=== PATIENT | male | born 1980 | race Two or more races ===

== ENCOUNTER 2022-09-18 11:04 | Emergency (ER) | payer MEDICAID, SELFPAY ==
[2022-09-18 11:30] VITALS: BP 177/91; PULSE 98; RESP 20; TEMP 37.1; O2SAT 99; BMI 38.3
[2022-09-18 12:00] LABS: Basophils Absolute Auto 0.1 10^3/uL (0.0-0.1); Basophils Percent Auto 0.7 % (0.2-2.0); Eosinophils Absolute Auto 0.2 10^3/uL (0.0-0.7); Eosinophils Percent Auto 2.5 % (0.9-7.0); Hematocrit 39.7 % (42.0-54.0); Hemoglobin 13.8 g/dL (14.0-18.0); Immature Granulocytes Abs Auto 0.04 10^3/uL (0.00-0.03); Immature Granulocytes Pct Auto 0.5 % (0.0-0.5); Lymphocytes Absolute Auto 2.9 10^3/uL (1.2-3.8); Lymphocytes Percent Auto 35.4 % (20.5-60.0); Mean Corpuscular HGB Conc 34.8 g/dL (29.9-35.2); Mean Corpuscular Hemoglobin 33.7 pg (25.9-34.0); Mean Corpuscular Volume 97.1 fL (80.0-94.0); Mean Platelet Volume 10.7 fL (9.5-13.5); Monocytes Absolute Auto 0.6 10^3/uL (0.3-0.8); Monocytes Percent Auto 7.2 % (1.7-12.0); Neutrophils Absolute Auto 4.4 10^3/uL (1.4-6.5); Neutrophils Percent Auto 53.7 % (43.0-75.0); Platelet Count 237 10^3/uL (150-450); Red Blood Count 4.09 10^6/uL (4.70-6.10); Red Cell Distribution Width 12.6 % (11.0-15.0); White Blood Count 8.3 10^3/uL (4.0-11.0)
[2022-09-18] MEDS: ONDANSETRON PF 4 MG/2 ML VIAL IV (12:02)
[2022-09-18] MEDS: 0.9 % SODIUM CHLORIDE 1,000 ML 100 ML IV (12:03)
[2022-09-18 12:15] LABS: Alanine Aminotransferase 55 U/L (16-63); Albumin Globulin Ratio 0.7; Albumin Level 3.4 g/dL (3.4-5.0); Alkaline Phosphatase 75 U/L (46-116); Anion Gap 18.9; Aspartate Amino Transferase 21 U/L (15-37); BUN Creatinine Ratio 11.2; Bilirubin Total 0.4 mg/dL (0.2-1.0); Carbon Dioxide 19.7 mmol/L (21.0-32.0); Chloride 100 mmol/L (98-107); Estimated GFR (African America >60 (>=60); Estimated GFR (Non-African Ame >60 (>=60); Globulin 4.6 g/dL; Glucose 210 mg/dL (74-106); Potassium 3.6 mmol/L (3.5-5.1); Sodium 135 mmol/L (136-145)
[2022-09-18 12:22] LABS: Lactate/Lactic Acid 1.4 mmol/L (0.4-2.0)
--- NOTE | 2022-09-18 13:43 | ED_ITS ---
HPI - General Adult General Chief complaint: Nausea/Vomiting/Diarrhea Stated complaint: VOMITING Time Seen by Provider: 09/18/22 13:43 Source: patient Mode of arrival: walk-in Limitations: no limitations History of Present Illness HPI narrative: Patient presents to emergency department complaining of nausea, vomiting, and diarrhea since yesterday. Patient states he vomited 6 times yesterday. He states he ate some tacos and the meat could have been bad. Patient denies any abdominal pain. He denies any fever, chills, cough, chest pain, shortness of breath. He denies any flank pain, hematuria, dysuria. Denies any hematemesis, melena, hematochezia. He denies any trauma. Related Data Home Medications Medication Instructions Recorded Confirmed amlodipine 5 mg tablet 5 mg PO DAILY 09/18/22 09/18/22 glimepiride 2 mg tablet 2 mg PO BID 09/18/22 09/18/22 lisinopril 20 mg tablet 40 mg PO DAILY 09/18/22 09/18/22 metformin 1,000 mg tablet 1,000 mg PO BID 09/18/22 09/18/22 pravastatin 20 mg tablet 20 mg PO DAILY 09/18/22 09/18/22 Previous Rx's Medication Instructions Recorded ondansetron 4 mg disintegrating 4 mg PO DAILY PRN nausea and 09/18/22 tablet vomiting 24 hours #10 tabs Allergies Allergy/AdvReac Type Severity Reaction Status Date / Time No Known Drug Allergies Allergy Verified 09/18/22 11:27 Review of Systems ROS Narrative ROS: Unless otherwise stated in this report the patient's positive and negative responses for review of systems for constitutional, eyes, ENT, cardiovascular, respiratory, gastrointestinal, neurological, , musculoskeletal and integument systems and related systems to the presenting problem are either stated in the history of present illness or were not pertinent or were negative for the symptoms and/or complaints related to the presenting medical problem. PFSH PFS Social History Smoking status: Never smoker Exam Narrative Exam Narrative: Nurses notes and vital signs reviewed and patient is not hypoxic. General: Nontoxic, Well-appearing and in no apparent distress. Skin: Warm, dry, no pallor noted. No Rash Head: Normocephalic, atraumatic. Neck: Supple, non-tender. Eye: Pupils are equal, round and EOMI. No scleral icterus. Ears, Nose, Mouth, and Throat: TM clear, no posterior oropharynx erythema or nasal mucosal hypertrophy, uvula is mid-line Oral mucosa is moist Cardiovascular: Regular Rate and Rhythm without murmur, gallop or rub. Respiratory: No accessory muscle use or respiratory distress. Lungs are clear to auscultation, no wheezing, rales or rhonchi Chest Wall: no tenderness Back: No midline thoracic or lumbar vertebral tenderness. No CVA tenderness Musculoskeletal: normal ROM, no calf or popliteal tenderness, no lower extremity edema/swelling GI: Abdomen is soft, non-distended. Normal bowel sounds. No masses appreciated. No tenderness to palpation. No rebound, guarding, or rigidity noted. Neurological: A&O x4. No cranial nerve dysfunction observed. No truncal ataxia. Moves all extremities. Sensation intact. Psychiatric: Cooperative and interactive. Normal mood and affect. Constitutional Vital Signs - 24 hr 09/18/22 11:30 Temperature 98.8 F Pulse Rate [Monitor] 98 H Respiratory Rate 20 Blood Pressure [Left Arm] 177/91 H Pulse Oximetry 99 Oxygen Delivery Method Room Air Course Course Hospital Course: Patient had an IV established was given Zofran. She was feeling better, tolerating by mouth. All results were discussed with patient. Patient is abdomen is benign and nonsurgical. He is nontoxic. He will be given a prescription for Zofran. At this time the patient is without objective evidence of an acute process requiring hospitalization or inpatient management. The patient has remained hemodynamically stable. No additional indication for emergent studies at this ti me. I answered all questions. Discussed discharge instructions including standard anticipatory guidance and what should prompt a return to the emergency department, including if they get worse are not getting better or develops any new or concerning symptoms. I've given them specific time frame in which to follow-up, and who to follow-up with. The patient demonstrates understanding. Patient is nontoxic and stable for discharge with outpatient follow-up. This note was created with the assistance of a speech recognition program. Although the intention is to generate documents that actually reflects the content of the visit, no guarantees can be provided that every mistake has been identified and corrected by editing. Vital Signs Vital signs: Vital Signs Temperature 98.8 F 09/18/22 11:30 Pulse Rate 98 H 09/18/22 11:30 Respiratory Rate 20 09/18/22 11:30 Blood Pressure 177/91 H 09/18/22 11:30 Pulse Oximetry 99 09/18/22 11:30 Oxygen Delivery Method Room Air 09/18/22 11:30 Temperature 98.8 F 09/18/22 11:30 Pulse Rate 98 H 09/18/22 11:30 Respiratory Rate 20 09/18/22 11:30 Blood Pressure 177/91 H 09/18/22 11:30 Pulse Oximetry 99 09/18/22 11:30 Oxygen Delivery Method Room Air 09/18/22 11:30 Medical Decision Making Lab Data Labs: Lab Results 09/18/22 Range/Units 11:42 WBC 8.3 (4.0-11.0) 10^3/uL RBC 4.09 L (4.70-6.10) 10^6/uL Hgb 13.8 L (14.0-18.0) g/dL Hct 39.7 L (42.0-54.0) % MCV 97.1 H (80.0-94.0) fL MCH 33.7 (25.9-34.0) pg MCHC 34.8 (29.9-35.2) g/dL RDW 12.6 (11.0-15.0) % Plt Count 237 (150-450) 10^3/uL MPV 10.7 (9.5-13.5) fL Neut % (Auto) 53.7 (43.0-75.0) % Lymph % (Auto) 35.4 (20.5-60.0) % Storey % (Auto) 7.2 (1.7-12.0) % Eos % (Auto) 2.5 (0.9-7.0) % Baso % (Auto) 0.7 (0.2-2.0) % Neut # (Auto) 4.4 (1.4-6.5) 10^3/uL Lymph # (Auto) 2.9 (1.2-3.8) 10^3/uL Storey # (Auto) 0.6 (0.3-0.8) 10^3/uL Eos # (Auto) 0.2 (0.0-0.7) 10^3/uL Baso # (Auto) 0.1 (0.0-0.1) 10^3/uL Sodium 135 L (136-145) mmol/L Potassium 3.6 (3.5-5.1) mmol/L Chloride 100 (98-107) mmol/L Carbon Dioxide 19.7 L (21.0-32.0) mmol/L Anion Gap 18.9 BUN 10.0 (7.0-18.0) mg/dL Creatinine 0.89 (0.70-1.30) mg/dL Est GFR ( Amer) >60 (>=60) Est GFR (Non-Af Amer) >60 (>=60) BUN/Creatinine Ratio 11.2 Glucose 210 H (74-106) mg/dL Lactate 1.4 (0.4-2.0) mmol/L Calcium 8.0 L (8.5-10.1) mg/dL Total Bilirubin 0.4 (0.2-1.0) mg/dL AST 21 (15-37) U/L ALT 55 (16-63) U/L Total Protein 8.0 (6.4-8.2) g/dL Albumin 3.4 (3.4-5.0) g/dL Globulin 4.6 g/dL Albumin/Globulin Ratio 0.7 Lipase 152.0 (73.0-393.0) U/L Discharge Plan Discharge Chief Complaint: Nausea/Vomiting/Diarrhea Clinical Impression: Gastroenteritis Patient Disposition: Home, Self-Care Time of Disposition Decision: 13:43 Condition: Good Prescriptions / Home Meds: New ondansetron 4 mg tablet,disintegrating 4 mg PO DAILY PRN (Reason: nausea and vomiting) 1 Days Qty: 10 0RF No Action amlodipine 5 mg tablet 5 mg PO DAILY glimepiride 2 mg tablet 2 mg PO BID lisinopril 20 mg tablet 40 mg PO DAILY metformin 1,000 mg tablet 1,000 mg PO BID pravastatin 20 mg tablet 20 mg PO DAILY Instructions: Acute Nausea and Vomiting (ED) Stand Alone Forms: Portal Instructions Referrals: Physician,Non-Staff, MD [Primary Care Provider] - 1 week
[2022-09-18 13:45] VITALS: BP 166/84; PULSE 95; RESP 20; TEMP 36.4; O2SAT 99
== END 2022-09-18 13:50 | disposition home or self-care (01) ==
PROVIDERS: Emergency Provider Emergency Medicine
DX: K52.9 Noninfective gastroenteritis and colitis, unspecified (principal); Z79.84 Long term (current) use of oral hypoglycemic drugs
CPT/HCPCS: 36415; 80053; 81001; 83605; 83690; 85025; 96374; 99284

== ENCOUNTER 2022-10-10 21:20 | Emergency (ER) | payer MEDICAID, SELFPAY ==
[2022-10-10 21:22] VITALS: BP 162/80; PULSE 88; RESP 20; TEMP 36.7; O2SAT 99; BMI 39.1
--- NOTE | 2022-10-10 21:34 | PC.NURSE ---
patient hurt back lower molar while chewing on ice tuesday. patient has had on and off pain and is afraid of infection. patient has dental appointment on .
--- NOTE | 2022-10-10 21:35 | ED.DENTAL1 ---
HPI - Dental/Oral General Chief complaint: Dental/Oral Stated complaint: DENTAL PAIN Time Seen by Provider: 10/10/22 21:29 Source: patient Mode of arrival: walk-in History of Present Illness HPI Narrative: bottom rear molar on right is painful. He has a dentist appointment on 10/14/22. Complains of pain along the right jaw. No meds taken at home [employer] for this. Related Data Home Medications Medication Instructions Recorded Confirmed amlodipine 5 mg tablet 5 mg PO DAILY 09/18/22 09/18/22 glimepiride 2 mg tablet 2 mg PO BID 09/18/22 09/18/22 lisinopril 20 mg tablet 40 mg PO DAILY 09/18/22 09/18/22 metformin 1,000 mg tablet 1,000 mg PO BID 09/18/22 09/18/22 pravastatin 20 mg tablet 20 mg PO DAILY 09/18/22 09/18/22 Previous Rx's Medication Instructions Recorded ondansetron 4 mg disintegrating 4 mg PO DAILY PRN nausea and 09/18/22 tablet vomiting 24 hours #10 tabs clindamycin HCl 150 mg capsule 450 mg PO TID 7 days #63 caps 10/10/22 Allergies Allergy/AdvReac Type Severity Reaction Status Date / Time No Known Drug Allergies Allergy Verified 10/10/22 21:28 [facility] Social History Smoking status: Never smoker Exam Narrative Exam Narrative: General: The patient is comfortable, alert and oriented x3, well appearing, non toxic in no apparent distress. Head: Atraumatic and normocephalic. Eyes: Normal conjunctiva ENT: The oropharynx is normal. No pharyngeal erythema, uvular edema, tonsillar exudates, asymmetry or trismus. Uvula is midline. Mouth is normal to inspection with the exception of a pain on percussion of the tooth #32 and evidence of dental caries. There is no evidence of facial asymmetry or abscess formation. Floor of the mouth is soft. No tenderness in the submental or submandibular space. No tongue elevation or deviation. The patient has no evidence of periapical abscess, gingivitis or other acute pathology. Airway is patent. Neck: The neck demonstrates normal range of motion. No meningeals signs are present. No stridor. No masses or lymphandenopathy noted. Respiratory: No acute distress, lungs are clear to auscultation, no wheezing, rhonchi, or rales noted. No stridor or retractions are noted. Cardiovascular: Regular rate and rhythm Skin: The skin exam shows no evidence of rashes Neuro: Alert and oriented x4, normal speech Lymphatic: No cervical lymphadenopathy Constitutional Vital Signs - 24 hr 10/10/22 21:22 Temperature 98.1 F Pulse Rate [Monitor] 88 Respiratory Rate 20 Blood Pressure [Right Arm] 162/80 H Pulse Oximetry 99 Oxygen Delivery Method Room Air Course Vital Signs Vital signs: Vital Signs Temperature 98.1 F 10/10/22 21:22 Pulse Rate 88 10/10/22 21:22 Respiratory Rate 20 10/10/22 21:22 Blood Pressure 162/80 H 10/10/22 21:22 Pulse Oximetry 99 10/10/22 21:22 Oxygen Delivery Method Room Air 10/10/22 21:22 Temperature 98.1 F 10/10/22 21:22 Pulse Rate 88 10/10/22 21:22 Respiratory Rate 20 10/10/22 21:22 Blood Pressure 162/80 H 10/10/22 21:22 Pulse Oximetry 99 10/10/22 21:22 Oxygen Delivery Method Room Air 10/10/22 21:22 MDM - Dental/Oral MDM Narrative Medical decision making narrative: he was given the first dose of clindamycin and prescribed the rest for home use. he was also given topical dental anesthetic paste to help with his pain. Discharge Plan Discharge Chief Complaint: Dental/Oral Clinical Impression: Dental caries, Toothache Patient Disposition: Home, Self-Care Time of Disposition Decision: 21:34 Prescriptions / Home Meds: New clindamycin HCl 150 mg capsule 450 mg PO TID 7 Days Qty: 63 0RF No Action amlodipine 5 mg tablet 5 mg PO DAILY glimepiride 2 mg tablet 2 mg PO BID lisinopril 20 mg tablet 40 mg PO DAILY metformin 1,000 mg tablet 1,000 mg PO BID pravastatin 20 mg tablet 20 mg PO DAILY ondansetron 4 mg tablet,disintegrating 4 mg PO DAILY PRN (Reason: nausea and vomiting) 1 Days Qty: 10 0RF Instructions: Toothache (ED) Stand Alone Forms: Portal Instructions Referrals: Physician,Non-Staff, MD [Primary Care Provider] - 1 week
[2022-10-10] MEDS: CLINDAMYCIN HCL 150 MG CAPSULE 450 MG PO (22:01)
[2022-10-10] MEDS: BENZOCAINE 30 ML, lidocaine HCL 15 ML MM (22:01)
== END 2022-10-10 22:12 | disposition home or self-care (01) ==
PROVIDERS: Emergency Provider Emergency Medicine
DX: K02.9 Dental caries, unspecified (principal); K08.89 Other specified disorders of teeth and supporting structures; Z79.899 Other long term (current) drug therapy; Z79.84 Long term (current) use of oral hypoglycemic drugs
CPT/HCPCS: 99283

== ENCOUNTER 2023-02-15 21:28 | Emergency (ER) | payer MEDICAID, SELFPAY ==
[2023-02-15 21:35] VITALS: BP 186/104; PULSE 97; RESP 16; TEMP 37.1; O2SAT 97; BMI 39.9
--- NOTE | 2023-02-15 21:43 | ED_ITS ---
HPI - URI/Sore Throat General Chief Complaint: Upper Respiratory Infection Stated Complaint: SORE THOART, CHILLS Time Seen by Provider: 02/15/23 21:38 Source: patient History of Present Illness HPI Narrative: This 42-year-old male presents for evaluation of fever, sore throat and body aches. The patient states he went oostr-[id number]-[id number] with his kids on Tuesday night and started feeling chills and body aches with a sore throat on Tuesday. 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 He states that he feels better today after taking Tylenol and ibuprofen throughout the day. He denies any chest pain or shortness of breath. He still has a scratchy throat. He denies any headache. He has no neck pain or stiffness. He has no abdominal pain nausea vomiting or diarrhea. He did get COVID vaccines initially but has not had any boosters. He states he also has a history of binge drinking. He has not been drinking today. He was shocked to see that his blood pressure was elevated at 186/104 upon arrival. He does admit that he had a big meal of pizza for dinner prior to coming to the emergency department. He states he no needs to quit drinking because the alcohol is what elevates his blood pressure. Related Data Home Medications Medication Instructions Recorded Confirmed amlodipine 5 mg tablet 5 mg PO DAILY 09/18/22 02/15/23 glimepiride 2 mg tablet 2 mg PO BID 09/18/22 02/15/23 lisinopril 20 mg tablet 40 mg PO DAILY 09/18/22 02/15/23 metformin 1,000 mg tablet 1,000 mg PO BID 09/18/22 02/15/23 pravastatin 20 mg tablet 20 mg PO DAILY 09/18/22 02/15/23 aspirin 81 mg tablet,delayed 81 mg PO DAILY 02/15/23 02/15/23 release Allergies Allergy/AdvReac Type Severity Reaction Status Date / Time No Known Drug Allergies Allergy Verified 02/15/23 21:35 Review of Systems ROS Status of ROS 10 or more systems reviewed and unremarkable except as noted in history and below PFSH PFS Social History Smoking status: Never smoker Exam Narrative Exam Narrative: Nurses note and vital signs reviewed and patient is not hypoxic. Blood pressure is notably elevated at 186/104 General: Alert, overweight, mildly anxious male, no resp distress Skin: Warm, dry, no pallor noted. There is no rash noted. Head: Normocephalic, atraumatic Eye: Normal conjunctiva, no drainage, EOMI. PERRL Ears, Nose, Mouth, and Throat: oral mucosa is moist. Posterior pharynx is erythematous and mildly edematous, no uvular swelling, no peritonsillar abscess, no trismus or drooling, speech is clear Neck: Supple, no meningeal signs Cardiovascular: Regular Rate and Rhythm S1S2, no murmur, rubs or gallops Respiratory: Patient is in no distress, no accessory muscle use, lungs are clear to auscultation, no wheezing, rales or rhonchi Back: non-tender, no CVA tenderness bilaterally to percussion. GI: Normal bowel sounds, no tenderness to palpation, no masses appreciated. No rebound, guarding, or rigidity noted. Musculoskeletal: The patient has no evidence of calf tenderness, no pitting edema, symmetrical pulses noted bilaterally Neurological: A&O x4, normal speech Psychiatric: Cooperative Constitutional Vital Signs, click to edit/add: Last Vital Signs Temp 98.7 F 02/15/23 21:35 Pulse 97 H 02/15/23 21:35 Resp 16 02/15/23 21:35 BP 186/104 H 02/15/23 21:35 Pulse Ox 97 02/15/23 21:35 O2 Del Method Room Air 02/15/23 21:35 Course Vital Signs Vital signs: Vital Signs Temperature 98.7 F 02/15/23 21:35 Pulse Rate 97 H 02/15/23 21:35 Respiratory Rate 16 02/15/23 21:35 Blood Pressure 186/104 H 02/15/23 21:35 Pulse Oximetry 97 02/15/23 21:35 Oxygen Delivery Method Room Air 02/15/23 21:35 Temperature 98.7 F 02/15/23 21:35 Pulse Rate 97 H 02/15/23 21:35 Respiratory Rate 16 02/15/23 21:35 Blood Pressure 186/104 H 02/15/23 21:35 Pulse Oximetry 97 02/15/23 21:35 Oxygen Delivery Method Room Air 02/15/23 21:35 MDM - URI/Sore Throat MDM Narrative Medical decision making narrative: This 42-year-old male with a history of hypertension who is on lisinopril and Norvasc and states that he maintains compliance with those but does have a history of binge drinking presents for evaluation requesting a Covid 19 test. The patient states he went bunii-gz-ddozegel with his kids on Tuesday and Tuesday had a fever Tmax 101 with chills and body aches. 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 He states he is feeling better today and has been taking ibuprofen throughout the day. He has not had a fever. He is not having any chest pain or shortness of breath. He is not having any nausea or vomiting. His physical exam was benign with mild pharyngeal erythema but no exudate, peritonsillar abscess or other abnormal findings.. He was noted to be hypertensive on arrival with a blood pressure of 186/104. After relaxing I rechecked his blood pressure and it is 179/84. His strep test and Covid 19 test are both negative. Lab Data Labs: Lab Results 02/15/23 Range/Units 22:08 SARS-CoV-2 (PCR) Negative (NEGATIVE) Streptococcus Screen Negative Discharge Plan Discharge Chief Complaint: Upper Respiratory Infection Clinical Impression: Elevated blood pressure reading, Viral upper respiratory infection Time of Disposition Decision: 22:38 Condition: Good Prescriptions / Home Meds: No Action amlodipine 5 mg tablet 5 mg PO DAILY glimepiride 2 mg tablet 2 mg PO BID lisinopril 20 mg tablet 40 mg PO DAILY metformin 1,000 mg tablet 1,000 mg PO BID pravastatin 20 mg tablet 20 mg PO DAILY aspirin 81 mg tablet,delayed release (DR/EC) 81 mg PO DAILY Instructions: Upper Respiratory Infection (ED), Viral Syndrome (ED) Stand Alone Forms: Portal Instructions Referrals: Physician,Non-Staff, MD [Primary Care Provider] - 1 week
[2023-02-15 22:26] LABS: Internal Control Within Normal Limits; SARS-CoV-2 Ag NEGATIVE (NEGATIVE); Strep A Antigen Screen Negative
[2023-02-15 22:45] VITALS: BP 153/6; PULSE 86; RESP 18; O2SAT 98
[2023-02-16 16:20] LABS: SARS-CoV-2 NAA NOT DETECTED (NOT DETECTE)
== END 2023-02-15 22:48 | disposition home or self-care (01) ==
PROVIDERS: Emergency Provider Emergency Medicine
DX: J06.9 Acute upper respiratory infection, unspecified (principal); I10 Essential (primary) hypertension; Z20.822 Contact with and (suspected) exposure to COVID-19; Z79.899 Other long term (current) drug therapy; Z79.84 Long term (current) use of oral hypoglycemic drugs
CPT/HCPCS: 87070; 87635; 87811; 87880; 99284

== ENCOUNTER 2023-05-06 15:19 | Emergency (ER) | payer MEDICAID, SELFPAY ==
[2023-05-06] VITALS (28 sets, daily range): BP systolic 76–146; BP diastolic 41–85; PULSE 90–100; RESP 15–23; TEMP 36.5; O2SAT 80–99; BMI 40.4
--- NOTE | 2023-05-06 15:27 | ECG_ITS ---
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
--- NOTE | 2023-05-06 15:28 | CT_ITS ---
The [address] [address] Patient Name: MACIEL MCGREGOR MRN: [id number] date: 1980 Sex: M Assigned Patient Location: ER Current Patient Location: ED.MAIN Accession/Order Number: [id number] Exam Date: 05/06/2023 15:35 Report Date: 05/06/2023 15:57 At the request of: JERILYN REINA Procedure: CT head/brain wo con EXAM: CT head/brain wo con HISTORY: fall, alcohol intoxication COMPARISON: CT cervical spine performed contemporaneously reported separately, CT head 03/27/2019. TECHNIQUE: Axial noncontrast CT imaging of the head was performed with coronal and sagittal reformats. FINDINGS: Calvarium/skull base: No evidence of acute fracture or destructive lesion. Mastoids and middle ears demonstrate no substantial mucosal disease. Paranasal sinuses: No air fluid levels. Brain: No acute intracranial hemorrhage. No acute large vascular territory infarct. No mass lesion or mass effect. No hydrocephalus. CT/CT head/brain wo con IMPRESSION: No acute intracranial process. Electronically authenticated by: KATI GAMEZ Date: 05/06/2023 15:57
--- NOTE | 2023-05-06 15:28 | XR_ITS ---
The [address] [address] Patient Name: MACIEL MCGREGOR MRN: [id number] date: 1980 Sex: M Assigned Patient Location: ER Current Patient Location: ER Accession/Order Number: [id number] Exam Date: 05/06/2023 15:35 Report Date: 05/06/2023 15:58 At the request of: JERILYN REINA Procedure: XR chest 1V EXAMINATION: XR chest 1V 05/06/2023 12:57 PM PST HISTORY: fall TECHNIQUE: Single frontal view of the chest acquired. COMPARISONS: Chest x-ray 05/12/2022. FINDINGS: Lines/tubes/other: None. Heart and mediastinum: Moderately enlarged cardiac silhouette which could be from exam technique and degree of inspiration. Bones: No acute osseous abnormality. Lungs: The lungs are clear. There is no evidence of pneumonia or pulmonary edema. Pleura: There is no significant pleural effusion or pneumothorax. Other: None. XR/XR chest 1V IMPRESSION: No acute cardiopulmonary abnormality. Electronically authenticated by: TRINITY LEE Date: 05/06/2023 15:58
--- NOTE | 2023-05-06 15:29 | CT_ITS ---
The [address] [address] Patient Name: MACIEL MCGREGOR MRN: [id number] date: 1980 Sex: M Assigned Patient Location: ER Current Patient Location: ER Accession/Order Number: [id number] Exam Date: 05/06/2023 15:35 Report Date: 05/06/2023 15:58 At the request of: JERILYN REINA Procedure: CT cervical spine wo con EXAM: CT cervical spine wo con COMPARISON: 03/27/2019. CLINICAL INDICATION: fall TECHNIQUE: Multiplanar CT images of the cervical spine without contrast. Dose reduction techniques were achieved by using automated exposure control and/or adjustment of mA and/or kV according to patient size and/or use of iterative reconstruction technique. FINDINGS: Straightening of the normal cervical lordosis, may be positional or may suggest muscle spasm. No CT evidence of acute osseous abnormality. No prevertebral soft tissue swelling. Mild degenerative change C5-C6 and C6-C7 again seen. No evidence of significant spinal canal or foraminal stenosis. No acute findings in the visualized upper chest. CT/CT cervical spine wo con IMPRESSION: No acute findings. Electronically authenticated by: ANDIE BENTLEY Date: 05/06/2023 15:58
[2023-05-06 15:31] LABS: Glucometer 180 mg/dL (74-106)
--- NOTE | 2023-05-06 15:31 | ED.GENADUL1 ---
HPI - General Adult General Chief complaint: Alcohol Stated complaint: Altered Mental Status Time Seen by Provider: 05/06/23 15:27 History of Present Illness HPI narrative: Patient is a 43-year-old male who is presenting by EMS with no cervical collar from a fall, alcohol intoxication. Patient is slipped and fallen on sinus node, unknown Down time. Unknown if patient hit his head or not. Review of systems is limited to EMS. Patient has blood around his left nostril, we can only find the patient is on baby aspirin, and takes 2 blood pressure medications. Patient denies headache or neck pain. Patient smells of alcohol. Patient admits to drinking alcohol today at the [employer]. Patient does not recall exactly falling down, patient's clothes are wet. Patient's wet clothes will be removed. Patient blood sugar was slightly elevated. No other family is at bedside currently. Patient has no other obvious signs of injury. 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 Patient is redirectable. No chest pain or shortness of breath, no nausea, vomiting, diarrhea that we're aware of. Unknown the patient's social history was smoking, drinking and tobacco products or illicit drugs what his true or not. It is reported by [place] police that the patient is typically in the Emergency Room once a week, Patient drinks alcohol daily, patient has alcohol dependence. . All systems are negative except as noted/marked. All systems reviewed and otherwise negative. . Nurses note and vital signs reviewed and patient is not hypoxic. General: The patient appears Mild distress secondary to alcohol intoxication. Patient is resting comfortably on cart. Patient is not toxic, lethargic, or listless. Patient smells of alcohol, slurring his speech. Patient closer wet, patient has been removed out of his wet clothes. Afebrile. Hypothermic. Skin: Warm, dry, no pallor noted. There is no rash noted. No petechiae, purpura. Head: Normocephalic, Patient has dried blood to left nostril, no active bleeding. No facial bony tenderness to palpation. Eye: Normal conjunctiva, no drainage, EOMI. PERRL Ears, Nose, Mouth, and Throat: oral mucosa is moist. Nares patent. Mouth without vesicles. Patient has dried blood around left nostril, no active epistaxis. No blood noted inside bilateral nostrils. No septal hematoma, septal deviation. No blood to the posterior pharynx. No obvious dental injury. Cardiovascular: Regular Rate and Rhythm, no murmur, gallop, rub Respiratory: Patient is in no distress, no accessory muscle use, lungs are clear to auscultation, no wheezing, rales or rhonchi Back: non-tender, no CVA tenderness bilaterally to percussion. No CT LS midline pain GI: soft, Obese, no tenderness to palpation, no masses appreciated. No rebound, guarding, or rigidity noted. No flank pain bilateral, No distention Musculoskeletal: Patient has full range of motion of all of the extremities, no motor, sensory, or focal neurological deficits Neurological: A&O x3, Slurred speech, intoxicated Psychiatric: Cooperative Related Data Home Medications Medication Instructions Recorded Confirmed amlodipine 5 mg tablet 5 mg PO DAILY 09/18/22 02/15/23 glimepiride 2 mg tablet 2 mg PO BID 09/18/22 02/15/23 lisinopril 20 mg tablet 40 mg PO DAILY 09/18/22 02/15/23 metformin 1,000 mg tablet 1,000 mg PO BID 09/18/22 02/15/23 pravastatin 20 mg tablet 20 mg PO DAILY 09/18/22 02/15/23 aspirin 81 mg tablet,delayed 81 mg PO DAILY 02/15/23 02/15/23 release Allergies Allergy/AdvReac Type Severity Reaction Status Date / Time No Known Drug Allergies Allergy Verified 02/15/23 21:35 PFSH PFSH Social History Smoking status: Current every day smoker Exam Constitutional Vital Signs, click to edit/add: Last Vital Signs Temp 97.7 F 05/06/23 15:21 Pulse 100 H 05/06/23 15:21 Resp 20 05/06/23 15:21 BP 146/70 H 05/06/23 15:21 Pulse Ox 96 05/06/23 15:21 O2 Del Method Room Air 05/06/23 15:21 Course Vital Signs Vital signs: Vital Signs Temperature 97.7 F 05/06/23 15:21 Pulse Rate 100 H 05/06/23 15:21 Respiratory Rate 20 05/06/23 15:21 Blood Pressure 146/70 H 05/06/23 15:21 Pulse Oximetry 96 05/06/23 15:21 Oxygen Delivery Method Room Air 05/06/23 15:21 Temperature 97.7 F 05/06/23 15:21 Pulse Rate 100 H 05/06/23 15:21 Respiratory Rate 20 05/06/23 15:21 Blood Pressure 146/70 H 05/06/23 15:21 Pulse Oximetry 96 05/06/23 15:21 Oxygen Delivery Method Room Air 05/06/23 15:21 Medical Decision Making MDM Narrative Medical decision making narrative: 153 Patient will have a change in mental status, confusion, overdose workup in the Emergency Room today. Patient had falling, uncertain if he hit his head or not. With alcohol intoxication, patient will have a CT of his head, cervical spine, a lot of lab work. Patient will be given Zofran prophylactically. 1809 I talked the patient at bedside again, Vish from security and Mimi ERVIN for witnesses. Patient was told that he will not be medically cleared and somewhat clinically sober until probably 3:57 AM. Patient is calling his mom or dad to come pick him up, he asked me if they could, at 6 AM to pick him up and I told him that was probably a good idea. Patient is not medically clear. Patient does not have a functional decision-making capacity to leave the Emergency Room at this time. Patient has been pink slip/medical hold to [facility] because his alcohol level was 0.342 and he will not be at approximately 0.1 until 3 or 4 AM approximately depending on how fast he metabolizes the alcohol. Patient understands this. Patient's been extremely time intensive for nursing staff, security staff, and myself redirecting this patient, making sure that he stay safe, and making sure that he is not leave the Emergency Room. There were also 3 [place] police officers Were at Bedside for over an hour as well. When the police officers were patient 2nd cousin or distant relative. Patient has been pink slip/medical hold until he is clinically sober, acting more appropriate, has a functional decision-making capacity to safely be discharged. Patient blood sugar Is slightly elevated, patient has increased glucose in his urine. Patient is diabetic, patient is supposed to be taking metformin daily. 1899 Patient is transitioned to Dr. 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 Critical care time 35 minutes exclusive from separate billable procedures that were performed. The following was considered in the determination of critical care but not limited to the level of medical decision making, intensive cardiac and/or respiratory monitoring, frequent vital sign monitoring, evaluation of laboratory studies, evaluation of radiographic studies, oxygen monitoring, and constant monitoring and speaking to family at bedside Lab Data Labs: Lab Results 05/06/23 05/06/23 05/06/23 Range/Units 15:28 15:35 16:10 WBC 8.5 (4.0-11.0) 10^3/uL RBC 4.18 L (4.70-6.10) 10^6/uL Hgb 14.0 (14.0-18.0) g/dL Hct 41.2 L (42.0-54.0) % MCV 98.6 H (80.0-94.0) fL MCH 33.5 (25.9-34.0) pg MCHC 34.0 (29.9-35.2) g/dL RDW 12.4 (11.0-15.0) % Plt Count 230 (150-450) 10^3/uL MPV 11.2 (9.5-13.5) fL Neut % (Auto) 56.5 (43.0-75.0) % Lymph % (Auto) 36.8 (20.5-60.0) % Union % (Auto) 5.1 (1.7-12.0) % Eos % (Auto) 0.6 L (0.9-7.0) % Baso % (Auto) 0.6 (0.2-2.0) % Neut # (Auto) 4.8 (1.4-6.5) 10^3/uL Lymph # (Auto) 3.1 (1.2-3.8) 10^3/uL Union # (Auto) 0.4 (0.3-0.8) 10^3/uL Eos # (Auto) 0.1 (0.0-0.7) 10^3/uL Baso # (Auto) 0.1 (0.0-0.1) 10^3/uL Abs Immat Gran (auto) 0.03 (0.00-0.03) 10^3/uL Imm/Tot Granulo (auto) 0.4 (0.0-0.5) % PT 9.3 (9.0-11.6) sec INR <0.93 Sodium 141 (136-145) mmol/L Potassium 3.3 L (3.5-5.1) mmol/L Chloride 102 (98-107) mmol/L Carbon Dioxide 21.4 (21.0-32.0) mmol/L Anion Gap 20.9 BUN 8.0 (7.0-18.0) mg/dL Creatinine 0.90 (0.70-1.30) mg/dL Est GFR ( Amer) >60 (>=60) Est GFR (Non-Af Amer) >60 (>=60) BUN/Creatinine Ratio 8.9 Glucose 175 H (74-106) mg/dL Calcium 9.0 (8.5-10.1) mg/dL Magnesium 1.9 (1.8-2.4) mg/dL Total Bilirubin 0.2 (0.2-1.0) mg/dL AST 28 (15-37) U/L ALT 74 H (16-63) U/L Alkaline Phosphatase 67 (46-116) U/L Total Protein 8.5 H (6.4-8.2) g/dL Albumin 3.8 (3.4-5.0) g/dL Globulin 4.7 g/dL Albumin/Globulin Ratio 0.8 Lipase 53.0 (16.0-77.0) U/L Urine Color Lt. yellow (YELLOW) Urine Clarity Clear (CLEAR) Urine pH 5.5 (5.0-9.0) Ur Specific Diagonal 1.010 (1.005-1.025) Urine Protein 30 A (NEG/TRACE) mg/dL Urine Glucose (UA) 500 A (NEGATIVE) mg/dL Urine Ketones Trace A (NEGATIVE) mg/dL Urine Occult Blood Trace-i (NEGATIVE) Urine Nitrite Negative (NEGATIVE) Urine Bilirubin Negative (NEGATIVE) Urine Urobilinogen 0.2 (0.2-1.0) EU/dL Ur Leukocyte Esterase Negative (NEGATIVE) Urine RBC 0-2 (0-2) #/HPF Urine WBC 0-2 A (NONE SEEN) #/HPF Ur Squamous Epith Cells Rare (NONE/RARE) #/LPF Urine Crystals None seen (None Seen) #/HPF Urine Bacteria None seen (NONE SEEN) #/HPF Urine Casts Seen A (NONE SEEN) #/LPF Hyaline Casts Rare Urine Mucus None seen (NONE SEEN) Ur Culture Indicated? No Urine Opiates Screen Negative (NEGATIVE) Ur Buprenorphine Scrn Negative (NEGATIVE) Ur Oxycodone Screen Negative (NEGATIVE) Urine Methadone Screen Negative (NEGATIVE) Ur Barbiturates Screen Negative (NEGATIVE) U Tricyclic Antidepress Negative (NEGATIVE) Ur Phencyclidine Scrn Negative (NEGATIVE) Ur Amphetamines Screen Negative (NEGATIVE) U Methamphetamines Scrn Negative (NEGATIVE) U Benzodiazepines Scrn Negative (NEGATIVE) Urine Cocaine Screen Negative (NEGATIVE) U Cannabinoids Screen Positive A (NEGATIVE) Ethanol Quant 321 mg/dL POC Glucose 180 H (74-106) mg/dL ECG Data Attestation: I personally reviewed and interpreted this ECG as follows: (EKG interpretation. Normal sinus rhythm at 99 beats a minute. Normal axis deviation. No acute ST elevation, no acute ectopy. QTC of 414. EKG reading incomplete right bundle-branch block.) Discharge Plan Discharge Chief Complaint: Alcohol Clinical Impression: Alcohol dependence, Fall Prescriptions / Home Meds: No Action amlodipine 5 mg tablet 5 mg PO DAILY glimepiride 2 mg tablet 2 mg PO BID lisinopril 20 mg tablet 40 mg PO DAILY metformin 1,000 mg tablet 1,000 mg PO BID pravastatin 20 mg tablet 20 mg PO DAILY aspirin 81 mg tablet,delayed release (DR/EC) 81 mg PO DAILY Referrals: Physician,Non-Staff, MD [Primary Care Provider] - 1 week
--- OUTSIDE RECORDS SUMMARY | 2023-05-06 15:38 | XMS_ITS | CCD ---
Author Name Unknown Address [address] [facility] [address] [place] [address] Organization [facility] Care Team Providers Care Chair Frame Builder Name Role Phone DR ADDIE STARK Primary Care Unavailable DILIP JAEGER Admitting Unavailable DILIP JAEGER Consulting Unavailable DILIP JAEGER Attending Unavailable HORACE SOTO Consulting Unavailable Allergies Allergy Classification Reported Allergen(s) Allergy Type Date of Onset Reaction(s) Facility (1 source) Naltrexone Drug Allergy 09-18-2015 [facility] Repository Problems Problem Classification Problem Date Documented Da te Episodic/Chronic Anxiety disorders (1 source) Anxiety disorder, unspecified; Translations: [ANXIETY DISORDER UNSPECIFIED] Onset: 05-14-2022 Chronic Cardiac dysrhythmias (1 source) Ventricular premature depolarization; Translations: [VENTRICULR PREMATURE DEPOLARIZATION] Onset: 05-14-2022 Chronic Cardiac dysrhythmias (3 sources) Palpitations; Translations: [PALPITATIONS] Onset: 05-12-2022 Episodic Diabetes mellitus without complication (1 source) Type 2 diabetes mellitus without complications; Translations: [TYPE 2 DM WITHOUT COMPLICATIONS] Onset: 05-14-2022 Chronic Other aftercare (1 source) salvage determiner (current) use of aspirin; Translations: [INTERVENTIONAL TECHNOLOGIST CURRENT USE OF ASPIRIN] Onset: 05-14-2022 Episodic Other aftercare (1 source) salvage determiner (current) use of oral hypoglycemic drugs; Translations: [JAIL USE ORAL HYPOGLYCEMIC DX] Onset: 05-14-2022 Episodic Results Test Name Value Interpretation Reference Range Facil ity CBC AUTO DIFFon 05-12-2022 BASO # 0.1 103/ul Normal 0.0-0.1 [facility] Comment on above: Performed By: #### C BC #### [facility] [address] [address] [address] Avi Limon Basophils/100 WBC (Bld) 0.5 % Normal 0.2-2.0 [facility] Comment on above: Performed By: #### C BC #### [facility] [address] [place] [address] Dr. Avi Limon EO # 0.1 103/ul Normal 0.0-0.7 [facility] Comment on above: Performed By: #### C BC #### [facility] [address] [place] [address] Dr. Avi Limon Eosinophils/100 WBC (Bld) 1.0 % Normal 0.9-7.0 [facility] Comment on above: Performed By: #### C BC #### [facility] [address] [place] [address] Dr. Avi Limon Erythrocyte distribution width (RBC) [Ratio] 12.2 % Normal 11.0-15.0 [facility] Comment on above: Performed By: #### C BC #### [facility] [address] [place] [address] Dr. Avi Limon Hematocrit (Bld) [Volume fraction] 45.2 % Normal 42.0-54.0 [facility] Comment on above: Performed By: #### C BC #### [facility] [address] [place] [address] Dr. Avi Limon Hemoglobin (Bld) [Mass/Vol] 14.6 g/dL Normal 14.0-18.0 [facility] Comment on above: Performed By: #### C BC #### [facility] [address] [place] [address] Dr. Avi Limon IG # 0.04 10e3/ul Critically high 0.00-0.03 [facility] Comment on above: Performed By: #### C BC #### [facility] [address] [place] [address] Dr. Avi Limon IG % 0.4 % Normal 0.0-0.5 [facility] Comment on above: Performed By: #### C BC #### [facility] [address] [place] [address] Dr. Avi Limon LYMPH # 4.4 103/ul Critically high 1.2-3.8 [facility] Comment on above: Performed By: #### C BC #### [facility] [address] [place] [address] Dr. Avi Limon Lymphocytes/100 WBC (Bld) 39.8 % Normal 20.5-60.0 [facility] Comment on above: Performed By: #### C BC #### [facility] [address] [place] [address] Dr. Avi Limon MANUAL DIFF REQ NO [facility] Comment on above: Performed By: #### C BC #### [facility] [address] [place] [address] Dr. Avi Limon MCH (RBC) [Entitic mass] 32.7 pg Normal 25.9-34.0 [facility] Comment on above: Performed By: #### C BC #### [facility] [address] [place] [address] Dr. Avi Limon MCHC (RBC) [Mass/Vol] 32.3 g/dL Normal 29.9-35.2 [facility] Comment on above: Performed By: #### C BC #### [facility] [address] [place] [address] Dr. Avi Limon MCV (RBC) [Entitic vol] 101.1 fL Critically high 80.0-94.0 [facility] Comment on above: Performed By: #### C BC #### [facility] [address] [place] [address] Dr. Avi Limon MONO # 0.6 103/ul Normal 0.3-0.8 [facility] Comment on above: Performed By: #### C BC #### [facility] [address] [place] [address] Dr. Avi Limon Monocytes/100 WBC (Bld) 5.0 % Normal 1.7-12.0 [facility] Comment on above: Performed By: #### C BC #### [facility] [address] [place] [address] Dr. Avi Limon NEUT # 5.9 103/ul Normal 1.4-6.5 [facility] Comment on above: Performed By: #### C BC #### [facility] [address] [address] [address] Avi Limon Neutrophils/100 WBC (Bld) 53.3 % Normal 43.0-75.0 [facility] Comment on above: Performed By: #### C BC #### [facility] [address] [address] [address] Avi Limon Platelet mean volume (Bld) [Entitic vol] 11.1 fL Normal 9.5-13.5 [facility] Comment on above: Performed By: #### C BC #### [facility] [address] [place] [address] Dr. Avi Limon PLT 238 103/ul Normal 150-450 [facility] Comment on above: Performed By: #### C BC #### [facility] [address] [place] [address] Dr. Avi Limon RBC 4.47 106/ul Critically low 4.70-6.10 [facility] Comment on above: Performed By: #### C BC #### [facility] [address] [address] [address] Avi Limon WBC 11.0 103/ul Normal 4.0-11.0 [facility] Comment on above: Performed By: #### C BC #### [facility] [address] [place] [address] Dr. Avi Limon PROF CHEM 8 (BAS METB)on Anion gap [Moles/Vol] 13.0 mmol/L Normal [facility] Comment on above: Performed By: #### H STROPN, BMP #### [facility] [address] [address] [address] Avi Limon Calcium [Mass/Vol] 9.6 mg/dL Normal 8.5-10.[address] [facility] Comment on above: Performed By: #### H STROPN, BMP #### [facility] [address] [address] [address] Avi Limon Chloride [Moles/Vol] 91 mmol/L Critically low 98-107 [facility] Comment on above: Performed By: #### H STROPN, BMP #### [facility] [address] [address] [address] Avi Limon CO2 [Moles/Vol] 29.1 mmol/L Normal 21.0-32.0 [facility] Comment on above: Performed By: #### H STROPN, BMP #### [facility] [address] [address] [address] Avi Limon Creatinine [Mass/Vol] 0.80 mg/dL Normal 0.70-1.30 [facility] Comment on above: Performed By: #### H STROPN, BMP #### [facility] [address] [place] [address] Dr. Avi Limon EGFR-AF ALGERIAN >60 Normal >=60 [facility] Comment on above: Performed By: #### H STROPN, BMP #### [facility] [address] [place] [address] Dr. Avi Limon EGFR-NON AF ALGERIAN >60 Normal >=60 [facility] Comment on above: Performed By: #### H STROPN, BMP #### [facility] [address] [place] [address] Dr. Avi Limon Glucose [Mass/Vol] 178 mg/dL Critically high 74-106 [facility] Comment on above: Performed By: #### H STROPN, BMP #### [facility] [address] [place] [address] Dr. Avi Limon Potassium [Moles/Vol] 3.1 mmol/L Critically low 3.5-5.1 [facility] Comment on above: Performed By: #### H STROPN, BMP #### [facility] [address] [place] [address] Dr. Avi Limon Sodium [Moles/Vol] 130 mmol/L Critically low 136-145 [facility] Comment on above: Performed By: #### H STROPN, BMP #### [facility] [address] [place] [address] Dr. Avi Limon Urea nitrogen [Mass/Vol] 14.0 mg/dL Normal 7.0-18.0 [facility] Comment on above: Performed By: #### H DICK THOMAS #### [facility] [address] [address] [address] Avi Limon Urea nitrogen/Creatinine [Mass ratio] 17.5 mg/mg Normal [facility] Comment on above: Performed By: #### H DICK THOMAS #### [facility] [address] [address] [address] Avi Limon TROPONIN, HIGH SENSITIVITYon 05-12-2022 HSTROP 23.0 pg/mL Normal 4.0-76.1 [facility] Comment on above: Result Comment: CUT- OFF POINTS HAVE BEEN ESTABLISHED BASED ON THE FOURTH UNIVERSAL DEFINITIONS OF MYOCARDIAL INFARCTION. THE UPPER REFERENCE LIMIT (URL) OF TROPONIN, DEFINED THE 99TH PERCENTILE OF cTnI DISTRIBUTION IN A REFERENCE POPULATION, HAS BEEN CONFIRMED THE DECISION THRESHOLD FOR MO DIAGNOSIS. Performed By: #### H DICK THOMAS #### [facility] [address] [place] [address] Dr. Avi Limon XR CHEST 1 Von 05-12-2022 XR CHEST 1 V EXAM: Portable chest REASON FOR EXAM: Palpitations. TECHNIQUE: A portable frontal view of the chest was obtained. COMPARISON: 01/24/2021. FINDINGS: The lungs are well-inflated and clear. The heart and mediastinum are normal. There is no mass or pathologic adenopathy. Osseous structures are normal. IMPRESSION: No acute cardiopulmonary process. Electronically authenticated by: HORACE SOTO Date: 2022-05-12 15:29 Normal [facility] Basic Metabolic Panelon 12-1 Calcium [Mass/Vol] 9.0 mg/dL Normal 8.2-10.2 [facility] Comment on above: Performed By: #### C BC, BMP, CK, CKMB, TROP #### [facility] [address] [place] [address] [place] Chloride [Moles/Vol] 97 mmol/L Normal 95-114 [facility] Comment on above: Performed By: #### C BC, BMP, CK, CKMB, TROP #### [facility] [address] [place] [address] CO2 [Moles/Vol] 24.9 mmol/L Normal 22.0-30.0 [facility] Comment on above: Performed By: #### C BC, BMP, CK, CKMB, TROP #### [address] Creatinine [Mass/Vol] 0.70 mg/dL Normal 0.64-1.27 [facility] Comment on above: Performed By: #### C BC, BMP, CK, CKMB, TROP #### [address] Creatinine [Mass/Vol] 160.3573158449 mg/dL Normal [facility] Comment on above: Result Comment: PERF ORMED BY: [place] [address] PATHOLOGIST PROCUREMENT REPRESENTATIVE GUANACO GRANADOS M.D. Performed By: #### C BC, BMP, CK, CKMB, TROP #### [address] Estimated GFR ( Santa > 60 [facility] Comment on above: Result Comment: GFR estimated reference range: According to KDOQI guidelines, <60 ml/min/1.73m2 is sufficient to diagnose a patient with chronic kidney disease. Performed By: #### C BC, BMP, CK, CKMB, TROP #### [address] Estimated GFR (Non- Am > 60 [facility] Comment on above: Performed By: #### C BC, BMP, CK, CKMB, TROP #### [address] Glucose [Mass/Vol] 229 mg/dL High 70-100 [facility] Comment on above: Result Comment: [place] om Glucose Reference Range is dependent on time and content of last meal. Glucose of more than 200 mg/dL in a nonstressed, ambulatory subject supports the diagnosis of Diabetes Mellitus. ADA recommended reference range Performed By: #### C BC, BMP, CK, CKMB, TROP #### [address] Potassium [Moles/Vol] 3.0 mmol/L Low 3.5-5.1 [facility] Comment on above: Performed By: #### C BC, BMP, CK, CKMB, TROP #### [address] Sodium [Moles/Vol] 133 mmol/L Low 136-146 [facility] Comment on above: Performed By: #### C BC, BMP, CK, CKMB, TROP #### [address] Urea nitrogen [Mass/Vol] 10 mg/dL Normal 9- [facility] Comment on above: Performed By: #### C BC, BMP, CK, CKMB, TROP #### [address] Complete Blood Count Auto Di ffon 03-30-2019 Basophils (Bld) [#/Vol] 0.1 10*3/uL Normal 0.0-0.2 [facility] Comment on above: Result Comment: PERF ORMED BY: [place] [address] PATHOLOGIST PROCUREMENT REPRESENTATIVE GUANACO GRANADOS M.D. Performed By: #### C BC, BMP, CK, CKMB, TROP #### [address] Basophils/100 WBC (Bld) 0.8 % Normal . [facility] Comment on above: Performed By: #### C BC, BMP, CK, CKMB, TROP #### [address] Eosinophils (Bld) [#/Vol] 0.2 10*3/uL Normal 0.0-0.45 [facility] Comment on above: Performed By: #### C BC, BMP, CK, CKMB, TROP #### [address] Eosinophils/100 WBC (Bld) 2.4 % Normal . [facility] Comment on above: Performed By: #### C BC, BMP, CK, CKMB, TROP #### [address] Erythrocyte distribution width (RBC) [Ratio] 12.6 % Normal 12.0-14.8 [facility] Comment on above: Performed By: #### C BC, BMP, CK, CKMB, TROP #### [address] Hematocrit (Bld) [Volume fraction] 38.4 % Low 38.8-50.0 [facility] Comment on above: Performed By: #### C BC, BMP, CK, CKMB, TROP #### [address] Hemoglobin (Bld) [Mass/Vol] 13.4 g/dL Normal 13.0-17.0 [facility] Comment on above: Performed By: #### C BC, BMP, CK, CKMB, TROP #### [address] Lymphocytes (Bld) [#/Vol] 3.1 10*3/uL Normal 1.00-4.8 [facility] Comment on above: Performed By: #### C BC, BMP, CK, CKMB, TROP #### [address] Lymphocytes/100 WBC (Bld) 33.4 % Normal . [facility] Comment on above: Performed By: #### C BC, BMP, CK, CKMB, TROP #### [address] MCH (RBC) [Entitic mass] 35.0 g/dL Normal 32.5-35.6 [facility] Comment on above: Performed By: #### C BC, BMP, CK, CKMB, TROP #### [address] MCH (RBC) [Entitic mass] 33.5 pg Normal 27.5-35.2 [facility] Comment on above: Performed By: #### C BC, BMP, CK, CKMB, TROP #### [facility] [address] MCV (RBC) [Entitic vol] 95.8 fL Normal 83.5-101 [facility] Comment on above: Performed By: #### C BC, BMP, CK, CKMB, TROP #### [facility] [address] Monocytes (Bld) [#/Vol] 0.6 10*3/uL Normal 0.0-0.8 [facility] Comment on above: Performed By: #### C BC, BMP, CK, CKMB, TROP #### [facility] [address] Monocytes/100 WBC (Bld) 6.6 % Normal . [facility] Comment on above: Performed By: #### C BC, BMP, CK, CKMB, TROP #### [address] Neutrophils (Bld) [#/Vol] 5.3 10*3/uL Normal 1.8-7.7 [facility] Comment on above: Performed By: #### C BC, BMP, CK, CKMB, TROP #### [address] Neutrophils/100 WBC (Bld) 56.8 % Normal . [facility] Comment on above: Performed By: #### C BC, BMP, CK, CKMB, TROP #### [facility] [address] [place] [address] Nucleated RBC/100 WBC (Bld) [Ratio] 0.3 % Normal 0-0.5 [facility] Comment on above: Performed By: #### C BC, BMP, CK, CKMB, TROP #### [facility] [address] [place] [address] Platelet mean volume (Bld) [Entitic vol] 9.4 fL Normal 6.6-10.1 [facility] Comment on above: Performed By: #### C BC, BMP, CK, CKMB, TROP #### [address] Platelets (Bld) [#/Vol] 228 10*3/uL Normal 150-450 [facility] Comment on above: Performed By: #### C BC, BMP, CK, CKMB, TROP #### [address] RBC (Bld) [#/Vol] 4.01 10*6/uL Normal 3.90-5.60 [facility] Comment on above: Performed By: #### C BC, BMP, CK, CKMB, TROP #### [address] WBC (Bld) [#/Vol] 9.4 10*3/uL Normal 4.5-11.0 [facility] Comment on above: Performed By: #### C BC, BMP, CK, CKMB, TROP #### [address] Creatine Kinaseon 03-30-2019 CK [Catalytic activity/Vol] 410 U/L High 22-269 [facility] Comment on above: Performed By: #### C BC, BMP, CK, CKMB, TROP #### [address] Creatinine Kinase MBon 03-30 CK.MB [Mass/Vol] 0.4 ng/mL Normal 0.00-2.50 [facility] Comment on above: Performed By: #### C BC, BMP, CK, CKMB, TROP #### [address] CK.MB [Mass/Vol] 1.8 ng/mL Normal 0.6-6.3 [facility] Comment on above: Performed By: #### C BC, BMP, CK, CKMB, TROP #### [address] ECG 12 lead ECGon 03-30-2019 ECG 12 lead ECG [facility] [place] [address] [place] [address] Electrocardiograph Report Signed Patient: Maciel Mohamud MR#: [id number] : 1980 Acct:[id number] Age/Sex: 39 / M ADM Date: 03/30/19 Loc: ER Room: Type: DEP ER Attending Dr: Ordering Provider: Maciel Tucker MD Date of Service: 03/30/19 ECG/ECG 12 lead ECG: Dizziness Copies to: Test Reason : Blood Pressure : 158/083 mmHG Vent. Rate : 079 BPM Atrial Rate : 079 BPM P-R Int : 162 ms QRS Dur : 100 ms QT Int : 402 ms P-R-T Axes : 032 011 036 degrees QTc Int : 460 ms Normal sinus rhythm Incomplete right bundle branch block Borderline ECG When compared with ECG of 09-APR-2010 19:28, Nonspecific T wave abnormality has replaced inverted T waves in Inferior leads Confirmed by MACIEL TUCKER MD ([id number]) on 03/30/2019 3:55:12 PM Referred By: Electronically Signed By:MACIEL TUCKER MD Transcribed By: MUS Dictated By: Maciel Tucker MD 03/30/19 1037 Signed By: 03/30/19 1555 Normal [facility] Troponin I(TnI)on 03-30-2019 Troponin I.cardiac [Mass/Vol] ng/mL Normal 0-0.02 [facility] Comment on above: Result Comment: JOSE ALEJANDRO [place] Cut off value > or equal to 0.03 ng/mL in conjunction with clinical conditions of myocardial infarction. (www.escardio.org/guidelines) PERFORMED BY: [place] [address] PATHOLOGIST PROCUREMENT REPRESENTATIVE GUANACO GRANADOS M.D. Performed By: #### C BC, BMP, CK, CKMB, TROP #### [facility] [address] [place] [address] [place] XR chest 2V*on 03-30-2019 XR chest 2V* [facility] [place] [address] XRay Report Signed Patient: Maciel Mohamud MR#: [id number] : 1980 Acct:[id number] Age/Sex: 39 / M ADM Date: 03/30/19 Loc: ER Room: Type: DEP ER Attending Dr: Ordering Provider: Maciel Tucker MD Date of Service: 03/30/19 XR/XR chest 2V*: Dizziness Copies to: Maciel Tucker MD Plain film chest2 view HISTORY:Dizziness today. Alcohol withdrawal COMPARISON:01/06/2013 FINDINGS: The cardiac, mediastinal and hilar silhouettes are within normal limits. No acute lung process, pleural effusion or pneumothorax identified. Bony structures are intact. XR/XR chest 2V* IMPRESSION: No acute process. Impression dictated by: Yazan Hansen M.D.03/30/2019 1:02 PM Dictation Location: [id number] Transcribed By: [facility] 03/30/19 1302 Dictated By: Yazan Hansen DO 03/30/19 1302 Signed By: 03/30/19 1302 [facility] Encounters Encounter Date Encounter Type Care Provider Facility Start: 05-12-2022 End: 05-12-[address] [place] [facility] [place] Payers Date Payer Category Payer Unknown [id number] 1961 Unknown [id number] Summary Purpose Family History No Family History Records FoundNo Family History Records Found Advance Directives No Advanced Directives Records FoundNo Advanced Directives Records Found Additional Source Comments (unrecognized sect ion and content) No Status Records FoundNo Status Records Found INFORMATION SOURCE (unrecogn ized section and content) DATE CREATED AUTHOR 03/31/2019 [facility] DATE CREATED AUTHOR AUTHOR'S ORGANIZ ATION 05/17/2022 [facility] FOR RECORDS PERTAINING TO PATIENTS WHO ARE OR HAVE BEEN ENROLLED IN A CHEMICAL DEPENDENCY/SUBSTANCEABUSE PROGRAM, SOME INFORMATION MAY BE OMITTED. This clinical summary was aggregated from multiple sources. Caution should be exercised in using it in the provision of clinical care. This summary normalizes information from multiple sources, and as a consequence, information in this document may materially change the coding, format and clinical context of patient data. In addition, data may be omitted in some cases. CLINICAL DECISIONS SHOULD BE BASED ON THE PRIMARY CLINICAL RECORDS. [facility]. provides no warranty or guarantee of the accuracy or completeness of information in this document.
[2023-05-06 15:48] LABS: Basophils Absolute Auto 0.1 10^3/uL (0.0-0.1); Basophils Percent Auto 0.6 % (0.2-2.0); Eosinophils Absolute Auto 0.1 10^3/uL (0.0-0.7); Eosinophils Percent Auto 0.6 % (0.9-7.0); Hematocrit 41.2 % (42.0-54.0); Immature Granulocytes Abs Auto 0.03 10^3/uL (0.00-0.03); Immature Granulocytes Pct Auto 0.4 % (0.0-0.5); Lymphocytes Absolute Auto 3.1 10^3/uL (1.2-3.8); Lymphocytes Percent Auto 36.8 % (20.5-60.0); Mean Corpuscular Hemoglobin 33.5 pg (25.9-34.0); Mean Corpuscular Volume 98.6 fL (80.0-94.0); Mean Platelet Volume 11.2 fL (9.5-13.5); Monocytes Absolute Auto 0.4 10^3/uL (0.3-0.8); Monocytes Percent Auto 5.1 % (1.7-12.0); Neutrophils Absolute Auto 4.8 10^3/uL (1.4-6.5); Neutrophils Percent Auto 56.5 % (43.0-75.0); Platelet Count 230 10^3/uL (150-450); Red Blood Count 4.18 10^6/uL (4.70-6.10); Red Cell Distribution Width 12.4 % (11.0-15.0); White Blood Count 8.5 10^3/uL (4.0-11.0)
[2023-05-06] MEDS: 0.9 % SODIUM CHLORIDE 1,000 ML 999 ML IV (15:48)
[2023-05-06] MEDS: ONDANSETRON PF 4 MG/2 ML VIAL IV ×2 (15:49→17:37)
[2023-05-06 16:01] LABS: Prothrombin Time 9.3 sec (9.0-11.6)
[2023-05-06 16:02] LABS: Alanine Aminotransferase 74 U/L (16-63); Albumin Globulin Ratio 0.8; Albumin Level 3.8 g/dL (3.4-5.0); Alkaline Phosphatase 67 U/L (46-116); Anion Gap 20.9; Aspartate Amino Transferase 28 U/L (15-37); BUN Creatinine Ratio 8.9; Bilirubin Total 0.2 mg/dL (0.2-1.0); Carbon Dioxide 21.4 mmol/L (21.0-32.0); Chloride 102 mmol/L (98-107); Estimated GFR (African America >60 (>=60); Estimated GFR (Non-African Ame >60 (>=60); Globulin 4.7 g/dL; Glucose 175 mg/dL (74-106); Potassium 3.3 mmol/L (3.5-5.1); Sodium 141 mmol/L (136-145); Total Protein 8.5 g/dL (6.4-8.2)
[2023-05-06 16:03] LABS: Ethanol 321 mg/dL; INR <0.93; Magnesium 1.9 mg/dL (1.8-2.4)
--- NOTE | 2023-05-06 16:03 | PC.NURSE ---
PT REFUSING ALL ORAL MEDICATIONS. INFORMED DR REINA. SECURITY REMAINS AT BEDSIDE. PT BROTHER WAS AT BEDSIDE BUT HAS LEFT NOW. PT TRYING TO GET UP AND LEAVE, REDIRECTABLE WITH SECURITY AND SITTING BACK DOWN. IVF REMAIN RUNNING
[2023-05-06 16:42] LABS: Bilirubin Urine NEGATIVE (NEGATIVE); Blood Urine TRACE-I (NEGATIVE); Clarity Urine CLEAR (CLEAR); Color Urine LT. YELLOW (YELLOW); Glucose Urine UA 500 mg/dL (NEGATIVE); Ketones Urine TRACE mg/dL (NEGATIVE); Leukocyte Esterase Urine NEGATIVE (NEGATIVE); Nitrite Urine NEGATIVE (NEGATIVE); Protein Urine 30 mg/dL (NEG/TRACE); Urobilinogen Urine 0.2 EU/dL (0.2-1.0); pH Urine 5.5 (5.0-9.0)
[2023-05-06 16:43] LABS: Urine Microscopic Indicated YES
[2023-05-06 16:56] LABS: Amphetamine Screen Urine NEGATIVE (NEGATIVE); Barbiturates Screen Urine NEGATIVE (NEGATIVE); Benzodiazepines Screen Urine NEGATIVE (NEGATIVE); Buprenorphine Screen Urine NEGATIVE (NEGATIVE); Cannabinoid Screen Urine POSITIVE (NEGATIVE); Cocaine Screen Urine NEGATIVE (NEGATIVE); Methadone Screen Urine NEGATIVE (NEGATIVE); Methamphetamines Screen Urine NEGATIVE (NEGATIVE); Opiate Screen Urine NEGATIVE (NEGATIVE); Oxycodone Screen Urine NEGATIVE (NEGATIVE); Phencyclidine Screen Urine NEGATIVE (NEGATIVE); Tricyclic Antidepressant Urine NEGATIVE (NEGATIVE)
[2023-05-06 17:02] LABS: WBC Urine 0-2 #/HPF (NONE SEEN)
[2023-05-06 17:03] LABS: Bacteria Urine NONE SEEN #/HPF (NONE SEEN); Cast Seen? SEEN #/LPF (NONE SEEN); Crystals Seen? None Seen #/HPF (None Seen); Hyaline Casts Urine RARE; Mucus Urine NONE SEEN (NONE SEEN); RBC Urine 0-2 #/HPF (0-2); Squamous Epithelial Cell Urine RARE #/LPF (NONE/RARE); Urine Culture Indicated NO
[2023-05-06] MEDS: MULTIVITAMIN TABLET 1 TAB PO (17:06)
[2023-05-06] MEDS: THIAMINE MONONITRATE (VIT B1) 100 MG TABLET PO (17:06)
--- NOTE | 2023-05-06 17:10 | PC.NURSE ---
1600 - pt becoming more aggravated and uncooperative. Security at bedside. Getting out of bed and walking to door of room. [place] [employer] called. Pt escorted back to room. Pt pulled IV out.
--- NOTE | 2023-05-06 17:16 | PC.NURSE ---
New IV inserted at this time. pt in bed, PD and security at bedside. #20 placed in right hand.
[2023-05-06] MEDS: FAMOTIDINE/PF 20 MG/2 ML VIAL IV (17:37)
[2023-05-06] MEDS: ZIPRASIDONE MESYLATE 20 MG, WATER FOR INJECTION,STERILE 1.2 ML IM (17:38)
[2023-05-06] MEDS: 0.9 % SODIUM CHLORIDE 1,000 ML 100 ML IV (18:19)
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
[2023-05-06] MEDS: ZIPRASIDONE MESYLATE 20 MG VIAL IM (21:13)
--- NOTE | 2023-05-06 21:37 | PC.NURSE ---
Pt requesting to lay on side, LUE restraint removed and pt now lying on his side. Pt continues to threaten to leave ED, RN made pt aware it is unsafe at this time.
--- NOTE | 2023-05-06 23:08 | PC.NURSE ---
Pt up with RN to urinate in urinal, pt continues to demonstrate unsteady gait but is agreeable to staying in bed. All restraints removed at this time. Pt resting comfortably in bed.
--- NOTE | 2023-05-07 02:16 | ED.ALCOHOL1 ---
HPI - Alcohol General Chief Complaint: Alcohol Stated Complaint: Altered Mental Status Time Seen by Provider: 05/06/23 15:27 History of Present Illness HPI narrative: The patient was initially seen by Dr. Wagner and signed out to me after discussing the case with him thoroughly. Please see his full history and physical exam. Related Data Home Medications Medication Instructions Recorded Confirmed amlodipine 5 mg tablet 5 mg PO DAILY 09/18/22 02/15/23 glimepiride 2 mg tablet 2 mg PO BID 09/18/22 02/15/23 lisinopril 20 mg tablet 40 mg PO DAILY 09/18/22 02/15/23 metformin 1,000 mg tablet 1,000 mg PO BID 09/18/22 02/15/23 pravastatin 20 mg tablet 20 mg PO DAILY 09/18/22 02/15/23 aspirin 81 mg tablet,delayed 81 mg PO DAILY 02/15/23 02/15/23 release Allergies Allergy/AdvReac Type Severity Reaction Status Date / Time No Known Drug Allergies Allergy Verified 02/15/23 21:35 PFSH PFSH Social History Smoking status: Current every day smoker Exam Constitutional Vital Signs, click to edit/add: Last Vital Signs Temp 97.7 F 05/06/23 15:21 Pulse 90 05/06/23 23:09 Resp 16 05/06/23 23:09 BP 110/70 05/06/23 23:09 Pulse Ox 95 05/06/23 23:09 O2 Del Method Nasal Cannula 05/06/23 18:40 O2 Flow Rate 2 05/06/23 18:40 Course Vital Signs Vital signs: Vital Signs Temperature 97.7 F 05/06/23 15:21 Pulse Rate 100 H 05/06/23 15:21 Respiratory Rate 20 05/06/23 15:21 Blood Pressure 146/70 H 05/06/23 15:21 Pulse Oximetry 96 05/06/23 15:21 Oxygen Delivery Method Room Air 05/06/23 15:21 Temperature 97.7 F 05/06/23 15:21 Pulse Rate 90 05/06/23 23:09 Respiratory Rate 16 05/06/23 23:09 Blood Pressure 110/70 05/06/23 23:09 Pulse Oximetry 95 05/06/23 23:09 Oxygen Delivery Method Nasal Cannula 05/06/23 18:40 Oxygen Delivery Flow Rate 2 05/06/23 18:40 MDM - Alcohol MDM Narrative Medical decision making narrative: the patient has been observed here in the emergency department. He is not ambulatory and able to be released. His parents will apparently be picking him up. At one point the patient needed to be restrained as he was still intoxicated and was getting out of bed and had a high fall risk. He was also somewhat combative with staff. Subsequently he was more cooperative and no longer required restraints. Differential Diagnosis Differential diagnosis: Likely alcohol intoxication Lab Data Attestation: I reviewed the patient's lab results. Labs: Lab Results 05/06/23 05/06/23 05/06/23 Range/Units 15:28 15:35 16:10 WBC 8.5 (4.0-11.0) 10^3/uL RBC 4.18 L (4.70-6.10) 10^6/uL Hgb 14.0 (14.0-18.0) g/dL Hct 41.2 L (42.0-54.0) % MCV 98.6 H (80.0-94.0) fL MCH 33.5 (25.9-34.0) pg MCHC 34.0 (29.9-35.2) g/dL RDW 12.4 (11.0-15.0) % Plt Count 230 (150-450) 10^3/uL MPV 11.2 (9.5-13.5) fL Neut % (Auto) 56.5 (43.0-75.0) % Lymph % (Auto) 36.8 (20.5-60.0) % [place] % (Auto) 5.1 (1.7-12.0) % Eos % (Auto) 0.6 L (0.9-7.0) % Baso % (Auto) 0.6 (0.2-2.0) % Neut # (Auto) 4.8 (1.4-6.5) 10^3/uL Lymph # (Auto) 3.1 (1.2-3.8) 10^3/uL [place] # (Auto) 0.4 (0.3-0.8) 10^3/uL Eos # (Auto) 0.1 (0.0-0.7) 10^3/uL Baso # (Auto) 0.1 (0.0-0.1) 10^3/uL Abs Immat Gran (auto) 0.03 (0.00-0.03) 10^3/uL Imm/Tot Granulo (auto) 0.4 (0.0-0.5) % PT 9.3 (9.0-11.6) sec INR <0.93 Sodium 141 (136-145) mmol/L Potassium 3.3 L (3.5-5.1) mmol/L Chloride 102 (98-107) mmol/L Carbon Dioxide 21.4 (21.0-32.0) mmol/L Anion Gap 20.9 BUN 8.0 (7.0-18.0) mg/dL Creatinine 0.90 (0.70-1.30) mg/dL Est GFR ( Amer) >60 (>=60) Est GFR (Non-Af Amer) >60 (>=60) BUN/Creatinine Ratio 8.9 Glucose 175 H (74-106) mg/dL Calcium 9.0 (8.5-10.1) mg/dL Magnesium 1.9 (1.8-2.4) mg/dL Total Bilirubin 0.2 (0.2-1.0) mg/dL AST 28 (15-37) U/L ALT 74 H (16-63) U/L Alkaline Phosphatase 67 (46-116) U/L Total Protein 8.5 H (6.4-8.2) g/dL Albumin 3.8 (3.4-5.0) g/dL Globulin 4.7 g/dL Albumin/Globulin Ratio 0.8 Lipase 53.0 (16.0-77.0) U/L Urine Color Lt. yellow (YELLOW) Urine Clarity Clear (CLEAR) Urine pH 5.5 (5.0-9.0) Ur Specific [place] 1.010 (1.005-1.025) Urine Protein 30 A (NEG/TRACE) mg/dL Urine Glucose (UA) 500 A (NEGATIVE) mg/dL Urine Ketones Trace A (NEGATIVE) mg/dL Urine Occult Blood Trace-i (NEGATIVE) Urine Nitrite Negative (NEGATIVE) Urine Bilirubin Negative (NEGATIVE) Urine Urobilinogen 0.2 (0.2-1.0) EU/dL Ur Leukocyte Esterase Negative (NEGATIVE) Urine RBC 0-2 (0-2) #/HPF Urine WBC 0-2 A (NONE SEEN) #/HPF Ur Squamous Epith Cells Rare (NONE/RARE) #/LPF Urine Crystals None seen (None Seen) #/HPF Urine Bacteria None seen (NONE SEEN) #/HPF Urine Casts Seen A (NONE SEEN) #/LPF Hyaline Casts Rare Urine Mucus None seen (NONE SEEN) Ur Culture Indicated? No Urine Opiates Screen Negative (NEGATIVE) Ur Buprenorphine Scrn Negative (NEGATIVE) Ur Oxycodone Screen Negative (NEGATIVE) Urine Methadone Screen Negative (NEGATIVE) Ur Barbiturates Screen Negative (NEGATIVE) U Tricyclic Antidepress Negative (NEGATIVE) Ur Phencyclidine Scrn Negative (NEGATIVE) Ur Amphetamines Screen Negative (NEGATIVE) U Methamphetamines Scrn Negative (NEGATIVE) U Benzodiazepines Scrn Negative (NEGATIVE) Urine Cocaine Screen Negative (NEGATIVE) U Cannabinoids Screen Positive A (NEGATIVE) Ethanol Quant 321 mg/dL POC Glucose 180 H (74-106) mg/dL Imaging Data CT scan - head: Radiologist's impression: ITS Impressions Chest X-Ray 05/06/23 15:28 IMPRESSION: No acute cardiopulmonary abnormality. Electronically authenticated by: TRINITY LEE Date: 05/06/2023 15:[address] 05/06/23 15:28 IMPRESSION: No acute intracranial process. Electronically authenticated by: KATI GAMEZ Date: 05/06/2023 15:[address] 05/06/23 15:29 IMPRESSION: No acute findings. Electronically authenticated by: ANDIE BENTLEY Date: 05/06/2023 15:58 Discharge Plan Discharge Chief Complaint: Alcohol Clinical Impression: Alcohol dependence, Fall, Alcoholic intoxication Patient Disposition: Home, Self-Care Time of Disposition Decision: 02:16 Condition: Good Mode of Transportation: Private Vehicle Prescriptions / Home Meds: No Action amlodipine 5 mg tablet 5 mg PO DAILY glimepiride 2 mg tablet 2 mg PO BID lisinopril 20 mg tablet 40 mg PO DAILY metformin 1,000 mg tablet 1,000 mg PO BID pravastatin 20 mg tablet 20 mg PO DAILY aspirin 81 mg tablet,delayed release (DR/EC) 81 mg PO DAILY Instructions: Alcohol Intoxication (ED), Abuse of Alcohol (ED) Stand Alone Forms: Portal Instructions Referrals: Physician,Non-Staff, MD [Primary Care Provider] - 1 week
[2023-05-07 02:26] VITALS: BP 122/78; PULSE 88; RESP 14; O2SAT 97
[2023-05-07 03:18] VITALS: PULSE 90; RESP 16; O2SAT 97
== END 2023-05-07 03:18 | disposition home or self-care (01) ==
PROVIDERS: Emergency Medicine; Emergency Provider Emergency Medicine
DX: F10.229 Alcohol dependence with intoxication, unspecified (principal); Y90.8 Blood alcohol level of 240 mg/100 ml or more; Z91.81 History of falling; E11.9 Type 2 diabetes mellitus without complications; Z79.84 Long term (current) use of oral hypoglycemic drugs; Z79.899 Other long term (current) drug therapy; Z79.82 Long term (current) use of aspirin; F17.210 Nicotine dependence, cigarettes, uncomplicated
CPT/HCPCS: 36415; 36416; 70450; 71045; 72125; 80053; 80307; 80320; 81001; 83690; 83735; 85025; 85610; 93005; 96372; 96374; 96375; 96376; 99285; J2405; J3486

== ENCOUNTER 2024-04-23 09:48 | Emergency (ER) | payer SELFPAY ==
[2024-04-23] VITALS (15 sets, daily range): BP systolic 102–198; BP diastolic 58–90; PULSE 75–112; TEMP 37.7; O2SAT 95–98; BMI 40.9
--- NOTE | 2024-04-23 10:20 | ECG_ITS ---
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
--- NOTE | 2024-04-23 10:21 | ED_ITS ---
HPI HPI - General Adult General Chief complaint: Alcohol Stated complaint: HIGH BP, ALCOHOL WITHDRAWL Time Seen by Provider: 04/23/24 10:14 Source: patient Mode of arrival: walk-in Limitations: no limitations History of Present Illness HPI narrative: 44-year-old male presents to the emergency department for elevated blood pressure and difficulty sleeping. He states he is an alcoholic and is trying to quit. The last time he drank was yesterday. In the past when he stopped drinking he will get shaky and have trouble sleeping and he states he usually can only go 2 days without drinking. No fever or vomiting and is not complaining of chest pain or shortness of breath. He was seen by a psychiatrist and his blood pressure was elevated so they sent him here. Related Data Home Medications ?Medication ?Instructions ?Recorded ?Confirmed amlodipine 5 mg tablet 5 mg PO DAILY 09/18/22 04/23/24 glimepiride 2 mg tablet 2 mg PO BID 09/18/22 04/23/24 lisinopril 20 mg tablet 40 mg PO DAILY 09/18/22 04/23/24 metformin 1,000 mg tablet 1,000 mg PO BID 09/18/22 04/23/24 pravastatin 20 mg tablet 20 mg PO DAILY 09/18/22 04/23/24 aspirin 81 mg tablet,delayed 81 mg PO DAILY 02/15/23 04/23/24 release Previous Rx's ?Medication ?Instructions ?Recorded lorazepam 1 mg tablet (Ativan) 1 mg PO Q8H PRN alcohol withdrawal 04/23/24 7 days #20 tabs Allergies Allergy/AdvReac Type Severity Reaction Status Date / Time Penicillins AdvReac Severe Palpitation Verified 04/23/24 10:11 s Opioid HPI Opioid Management Most Recent Opioid Data: Ur Phencyclidine Scrn Negative (NEGATIVE) 05/06/23 16:10 04/18 01/09 Review of Systems ROS Narrative A ten point review of systems is negative except as noted above. PFSH PFSH Social History Smoking status: Current every day smoker Little interest or pleasure in doing things: not at all Feeling down, depressed, or hopeless: not at all Exam Narrative Exam Narrative: Nurses note and vital signs reviewed and patient is not hypoxic. General: The patient appears in no apparent distress. Patient is resting comfortably on cart. Skin: Warm, dry, no pallor noted. There is no rash noted. Head: Normocephalic, atraumatic Eye: Normal conjunctiva, no drainage Ears, Nose, Mouth, and Throat: oral mucosa is moist. Nares patent. Cardiovascular: Regular Rate and Rhythm Respiratory: Patient is in no distress, no accessory muscle use, lungs are clear to auscultation, no wheezing, rales or rhonchi Back: non-tender GI: Soft obese and nontender. Liver not palpable Musculoskeletal: The patient has no evidence of calf tenderness, no pitting edema, symmetrical pulses noted bilaterally Neurological: A&O, normal speech Psychiatric: Cooperative Constitutional Vital Signs, click to edit/add: Last Vital Signs Temp 99.9 F 04/23/24 10:05 Pulse 75 04/23/24 10:44 Resp 18 04/23/24 10:44 BP 102/58 04/23/24 10:44 Pulse Ox 98 04/23/24 10:44 O2 Del Method Room Air 04/23/24 10:05 Course Vital Signs Vital signs: Vital Signs Temperature 99.9 F 04/23/24 10:05 Pulse Rate 112 H 04/23/24 10:05 Respiratory Rate 20 04/23/24 10:05 Blood Pressure 198/90 H 04/23/24 10:05 Pulse Oximetry 98 04/23/24 10:05 Oxygen Delivery Method Room Air 04/23/24 10:05 Temperature 99.9 F 04/23/24 10:05 Pulse Rate 75 04/23/24 10:44 Respiratory Rate 18 04/23/24 10:44 Blood Pressure 102/58 04/23/24 10:44 Pulse Oximetry 98 04/23/24 10:44 Oxygen Delivery Method Room Air 04/23/24 10:05 Medical Decision Making [facility] Narrative Medical decision making narrative: His laboratory analysis is negative. He was given IV fluids and Ativan and feels much better and is able to be discharged home with a prescription for Ativan. Treatment diagnosis and follow-up were discussed with the patient. Differential Diagnosis Differential Diagnosis: Alcohol withdrawal, anxiety Lab Data Lab results reviewed: Yes I reviewed the patient's lab results Labs: Lab Results 04/23/24 04/23/24 Range/Units 10:21 10:22 WBC 6.6 (4.0-11.0) 10^3/uL RBC 4.27 L (4.70-6.10) 10^6/uL Hgb 14.1 (14.0-18.0) g/dL Hct 41.3 L (42.0-54.0) % MCV 96.7 H (80.0-94.0) fL MCH 33.0 (25.9-34.0) pg MCHC 34.1 (29.9-35.2) g/dL RDW 12.1 (11.0-15.0) % Plt Count 207 (150-450) 10^3/uL MPV 10.8 (9.5-13.5) fL Neut % (Auto) 49.4 (43.0-75.0) % Lymph % (Auto) 39.1 (20.5-60.0) % [place] % (Auto) 7.2 (1.7-12.0) % Eos % (Auto) 3.2 (0.9-7.0) % Baso % (Auto) 0.8 (0.2-2.0) % Neut # (Auto) 3.3 (1.4-6.5) 10^3/uL Lymph # (Auto) 2.6 (1.2-3.8) 10^3/uL [place] # (Auto) 0.5 (0.3-0.8) 10^3/uL Eos # (Auto) 0.2 (0.0-0.7) 10^3/uL Baso # (Auto) 0.1 (0.0-0.1) 10^3/uL Abs Immat Gran (auto) 0.02 (0.00-0.03) 10^3/uL Imm/Tot Granulo (auto) 0.3 (0.0-0.5) % Sodium 137 (136-145) mmol/L Potassium 3.8 (3.5-5.1) mmol/L Chloride 100 (98-107) mmol/L Carbon Dioxide 27.6 (21.0-32.0) mmol/L Anion Gap 13.2 BUN 7.0 (7.0-18.0) mg/dL Creatinine 0.85 (0.70-1.30) mg/dL Est GFR ( Amer) >60 (>=60 mL/min/1.73m^2) Est GFR (Non-Af Amer) >60 (>=60 mL/min/1.73m^2) BUN/Creatinine Ratio 8.2 Glucose 321 H (74-106) mg/dL Calcium 8.6 (8.5-10.1) mg/dL Total Bilirubin 0.3 (0.2-1.0) mg/dL Direct Bilirubin 0.1 (0.0-0.2) mg/dL AST 40 H (15-37) U/L ALT 111 H (16-63) U/L Alkaline Phosphatase 84 (46-116) U/L Total Protein 7.7 (6.4-8.2) g/dL Albumin 3.4 (3.4-5.0) g/dL Globulin 4.3 g/dL Albumin/Globulin Ratio 0.8 Urine Color Lt. yellow (YELLOW) Urine Clarity Clear (CLEAR) Urine pH 6.0 (5.0-9.0) Ur Specific [place] 1.015 (1.005-1.025) Urine Protein 30 A (NEG/TRACE) mg/dL Urine Glucose (UA) >=1000 A (NEGATIVE) mg/dL Urine Ketones Negative (NEGATIVE) mg/dL Urine Occult Blood Negative (NEGATIVE) Urine Nitrite Negative (NEGATIVE) Urine Bilirubin Negative (NEGATIVE) Urine Urobilinogen 1.0 (0.2-1.0) EU/dL Ur Leukocyte Esterase Negative (NEGATIVE) Urine RBC None seen (0-2) #/HPF Urine WBC 0-2 A (NONE SEEN) #/HPF Ur Squamous Epith Cells Few A (NONE/RARE) #/LPF Urine Crystals None seen (None Seen) #/HPF Urine Bacteria None seen (NONE SEEN) #/HPF Urine Casts None seen (NONE SEEN) #/LPF Urine Mucus None seen (NONE SEEN) Ethanol Quant <3 mg/dL ECG Data Attestation: I personally reviewed and interpreted this ECG as follows: (EKG on my interpretation shows normal sinus rhythm with rate of 98 and no acute change) Discharge Plan Discharge Chief Complaint: Alcohol Clinical Impression: Alcohol withdrawal syndrome Patient Disposition: Home, Self-Care Time of Disposition Decision: 11:40 Condition: Good Prescriptions / Home Meds: New lorazepam [Ativan] 1 mg tablet 1 mg PO Q8H PRN (Reason: alcohol withdrawal) 7 Days Qty: 20 0RF No Action amlodipine 5 mg tablet 5 mg PO DAILY glimepiride 2 mg tablet 2 mg PO BID lisinopril 20 mg tablet 40 mg PO DAILY metformin 1,000 mg tablet 1,000 mg PO BID pravastatin 20 mg tablet 20 mg PO DAILY aspirin 81 mg tablet,delayed release (DR/EC) 81 mg PO DAILY Print Language: South African Instructions: Alcohol Withdrawal (ED) Referrals: Physician,Non-Staff, MD [Primary Care Provider] - 1 week
[2024-04-23 10:37] LABS: Basophils Absolute Auto 0.1 10^3/uL (0.0-0.1); Basophils Percent Auto 0.8 % (0.2-2.0); Eosinophils Absolute Auto 0.2 10^3/uL (0.0-0.7); Eosinophils Percent Auto 3.2 % (0.9-7.0); Hematocrit 41.3 % (42.0-54.0); Hemoglobin 14.1 g/dL (14.0-18.0); Immature Granulocytes Abs Auto 0.02 10^3/uL (0.00-0.03); Immature Granulocytes Pct Auto 0.3 % (0.0-0.5); Lymphocytes Absolute Auto 2.6 10^3/uL (1.2-3.8); Lymphocytes Percent Auto 39.1 % (20.5-60.0); Mean Corpuscular HGB Conc 34.1 g/dL (29.9-35.2); Mean Corpuscular Volume 96.7 fL (80.0-94.0); Mean Platelet Volume 10.8 fL (9.5-13.5); Monocytes Absolute Auto 0.5 10^3/uL (0.3-0.8); Monocytes Percent Auto 7.2 % (1.7-12.0); Neutrophils Absolute Auto 3.3 10^3/uL (1.4-6.5); Neutrophils Percent Auto 49.4 % (43.0-75.0); Platelet Count 207 10^3/uL (150-450); Red Blood Count 4.27 10^6/uL (4.70-6.10); Red Cell Distribution Width 12.1 % (11.0-15.0); White Blood Count 6.6 10^3/uL (4.0-11.0)
[2024-04-23] MEDS: LORAZEPAM 2 MG/ML VIAL 1 MG IV (10:37)
[2024-04-23] MEDS: 0.9 % SODIUM CHLORIDE 1,000 ML 1000 ML IV (10:37)
[2024-04-23 10:41] LABS: Bilirubin Urine NEGATIVE (NEGATIVE); Blood Urine NEGATIVE (NEGATIVE); Clarity Urine CLEAR (CLEAR); Color Urine LT. YELLOW (YELLOW); Glucose Urine UA >=1000 mg/dL (NEGATIVE); Ketones Urine NEGATIVE (NEGATIVE); Leukocyte Esterase Urine NEGATIVE (NEGATIVE); Nitrite Urine NEGATIVE (NEGATIVE); Protein Urine 30 mg/dL (NEG/TRACE); Specific Gravity Urine 1.015 (1.005-1.025)
[2024-04-23 10:48] LABS: Bacteria Urine NONE SEEN #/HPF (NONE SEEN); RBC Urine NONE SEEN #/HPF (0-2); WBC Urine 0-2 #/HPF (NONE SEEN)
[2024-04-23 10:49] LABS: Cast Seen? NONE SEEN #/LPF (NONE SEEN); Crystals Seen? None Seen #/HPF (None Seen); Mucus Urine NONE SEEN (NONE SEEN); Squamous Epithelial Cell Urine FEW #/LPF (NONE/RARE)
[2024-04-23 10:53] LABS: Alanine Aminotransferase 111 U/L (16-63); Albumin Globulin Ratio 0.8; Albumin Level 3.4 g/dL (3.4-5.0); Alkaline Phosphatase 84 U/L (46-116); Anion Gap 13.2; Aspartate Amino Transferase 40 U/L (15-37); BUN Creatinine Ratio 8.2; Bilirubin Direct 0.1 mg/dL (0.0-0.2); Bilirubin Total 0.3 mg/dL (0.2-1.0); Calcium 8.6 mg/dL (8.5-10.1); Carbon Dioxide 27.6 mmol/L (21.0-32.0); Chloride 100 mmol/L (98-107); Estimated GFR (African America >60 (>=60 mL/min/1.73m^2); Estimated GFR (Non-African Ame >60 (>=60 mL/min/1.73m^2); Globulin 4.3 g/dL; Glucose 321 mg/dL (74-106); Potassium 3.8 mmol/L (3.5-5.1); Sodium 137 mmol/L (136-145); Total Protein 7.7 g/dL (6.4-8.2)
[2024-04-23 11:31] LABS: Ethanol <3 mg/dL
== END 2024-04-23 11:58 | disposition home or self-care (01) ==
PROVIDERS: Emergency Provider Emergency Medicine
DX: F10.239 Alcohol dependence with withdrawal, unspecified (principal); Y90.0 Blood alcohol level of less than 20 mg/100 ml; R03.0 Elevated blood-pressure reading, without diagnosis of hypertension; F17.200 Nicotine dependence, unspecified, uncomplicated
CPT/HCPCS: 36415; 80048; 80076; 80320; 81001; 85025; 93005; 96374; 99284; J2060

== ENCOUNTER 2024-07-12 15:10 | Emergency (ER) | payer MEDICAID, SELFPAY ==
[2024-07-12] VITALS (7 sets, daily range): BP systolic 158–200; BP diastolic 80–95; PULSE 85–99; TEMP 36.7; O2SAT 98–99; BMI 39.9
--- NOTE | 2024-07-12 15:37 | ECG_ITS ---
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 Measurements Intervals [place] Rate: 93 P: 65 [place]: 130 QRS: 53 QRSD: 96 T: 60 QT: 358 QTc: 409 Interpretive Statements 1100 Sinus rhythm 2440 Incomplete right bundle branch block 7300 Indeterminate axis 9130 borderline ECG Compared to ECG 04/23/2024 10:28:50 No significant change Electronically Signed On 07-13-2024 19:19:33 EDT by EDWARD FUENTES M.D.
--- NOTE | 2024-07-12 15:41 | ED.GENADUL1 ---
HPI HPI - General Adult General Chief complaint: Abdominal Pain Stated complaint: STOMACH ISSUES Time Seen by Provider: 07/12/24 15:24 Source: patient Mode of arrival: walk-in Limitations: no limitations History of Present Illness HPI narrative: 44-year-old male presents for nausea vomiting and diarrhea. He has had this for 2 days. He has had no hematemesis or hematochezia. His blood pressure was elevated and he was concerned so he came in here. He is on 2 blood pressure medications and he has been taking them. He has not had a fever or cough or shortness of breath but his boss wanted him to have a COVID test. The patient works at a [employer] when he is worried he may have picked up a bug there. Related Data Home Medications ?Medication ?Instructions ?Recorded ?Confirmed amlodipine 5 mg tablet 5 mg PO DAILY 09/18/22 07/12/24 glimepiride 2 mg tablet 2 mg PO BID 09/18/22 07/12/24 lisinopril 20 mg tablet 40 mg PO DAILY 09/18/22 07/12/24 metformin 1,000 mg tablet 1,000 mg PO BID 09/18/22 07/12/24 pravastatin 20 mg tablet 20 mg PO DAILY 09/18/22 07/12/24 aspirin 81 mg tablet,delayed 81 mg PO DAILY 02/15/23 07/12/24 release Previous Rx's ?Medication ?Instructions ?Recorded lorazepam 1 mg tablet (Ativan) 1 mg PO Q8H PRN alcohol withdrawal 04/23/24 7 days #20 tabs ondansetron 4 mg disintegrating 4 mg PO Q6H PRN nausea and 07/12/24 tablet vomiting #20 tabs Allergies Allergy/AdvReac Type Severity Reaction Status Date / Time Penicillins AdvReac Severe Palpitation Verified 04/23/24 10:11 s Opioid HPI Opioid Management Most Recent Opioid Data: Ur Phencyclidine Scrn Negative (NEGATIVE) 05/06/23 16:10 05/06/23 Review of Systems ROS Narrative A ten point review of systems is negative except as noted above. PFSH PFSH Social History Smoking status: Current every day smoker Little interest or pleasure in doing things: not at all Feeling down, depressed, or hopeless: not at all Exam Narrative Exam Narrative: Nurses note and vital signs reviewed and patient is not hypoxic. General: The patient appears well and in no apparent distress. Patient is resting comfortably on cart. Skin: Warm, dry, no pallor noted. There is no rash noted. Head: Normocephalic, atraumatic Eye: Normal conjunctiva, no drainage Ears, Nose, Mouth, and Throat: oral mucosa is moist. Nares patent. Cardiovascular: Regular Rate and Rhythm Respiratory: Patient is in no distress, no accessory muscle use, lungs are clear to auscultation, no wheezing, rales or rhonchi Back: non-tender GI: Soft Musculoskeletal: The patient has no evidence of calf tenderness, no pitting edema, symmetrical pulses noted bilaterally Neurological: A&O, normal speech Psychiatric: Cooperative Constitutional Vital Signs, click to edit/add: Last Vital Signs Temp 98.0 F 07/12/24 15:23 Pulse 85 07/12/24 16:39 Resp 20 07/12/24 16:39 BP 158/80 H 07/12/24 16:39 Pulse Ox 98 07/12/24 16:39 O2 Del Method Room Air 07/12/24 16:39 Course Vital Signs Vital signs: Vital Signs Temperature 98.0 F 07/12/24 15:23 Pulse Rate 98 H 07/12/24 15:23 Respiratory Rate 18 07/12/24 15:23 Blood Pressure 200/90 H 07/12/24 15:23 Pulse Oximetry 99 07/12/24 15:23 Oxygen Delivery Method Room Air 07/12/24 15:23 Temperature 98.0 F 07/12/24 15:23 Pulse Rate 85 07/12/24 16:39 Respiratory Rate 20 07/12/24 16:39 Blood Pressure 158/80 H 07/12/24 16:39 Pulse Oximetry 98 07/12/24 16:39 Oxygen Delivery Method Room Air 07/12/24 16:39 Medical Decision Making MDM Narrative Medical decision making narrative: His workup is negative here. His blood pressure improved without intervention and he is able to be discharged home. He tells me that his doctor wants to start him on BuSpar for anxiety. He will follow-up with her. Treatment diagnosis and follow-up were discussed with the patient. Lab Data Lab results reviewed: Yes I reviewed the patient's lab results Labs: Lab Results 07/12/24 07/12/24 Range/Units 15:45 15:48 WBC 8.8 (4.0-11.0) 10^3/uL RBC 4.38 L (4.70-6.10) 10^6/uL Hgb 14.4 (14.0-18.0) g/dL Hct 41.8 L (42.0-54.0) % MCV 95.4 H (80.0-94.0) fL MCH 32.9 (25.9-34.0) pg MCHC 34.4 (29.9-35.2) g/dL RDW 12.2 (11.0-15.0) % Plt Count 236 (150-450) 10^3/uL MPV 10.6 (9.5-13.5) fL Neut % (Auto) 57.9 (43.0-75.0) % Lymph % (Auto) 34.4 (20.5-60.0) % [place] % (Auto) 5.0 (1.7-12.0) % Eos % (Auto) 1.5 (0.9-7.0) % Baso % (Auto) 0.9 (0.2-2.0) % Neut # (Auto) 5.1 (1.4-6.5) 10^3/uL Lymph # (Auto) 3.0 (1.2-3.8) 10^3/uL [place] # (Auto) 0.4 (0.3-0.8) 10^3/uL Eos # (Auto) 0.1 (0.0-0.7) 10^3/uL Baso # (Auto) 0.1 (0.0-0.1) 10^3/uL Abs Immat Gran (auto) 0.03 (0.00-0.03) 10^3/uL Imm/Tot Granulo (auto) 0.3 (0.0-0.5) % Sodium 135 L (136-145) mmol/L Potassium 3.9 (3.5-5.1) mmol/L Chloride 98 (98-107) mmol/L Carbon Dioxide 26.2 (21.0-32.0) mmol/L Anion Gap 14.7 BUN 13.0 (7.0-18.0) mg/dL Creatinine 0.83 (0.70-1.30) mg/dL Est GFR ( Amer) >60 (>=60 mL/min/1.73m^2) Est GFR (Non-Af Amer) >60 (>=60 mL/min/1.73m^2) BUN/Creatinine Ratio 15.7 Glucose 259 H (74-106) mg/dL Calcium 8.4 L (8.5-10.1) mg/dL Influenza Type A Ag Negative Influenza Type B Ag Negative SARS-CoV-2 Ag (CV2AG) Negative (NEGATIVE) ECG Data Attestation: I personally reviewed and interpreted this ECG as follows: (EKG on my interpretation shows normal sinus rhythm with a rate of 93 and no acute change) Discharge Plan Discharge Chief Complaint: Abdominal Pain Clinical Impression: Nausea and vomiting Patient Disposition: Home, Self-Care Time of Disposition Decision: 16:41 Condition: Good Mode of Transportation: Private Vehicle Prescriptions / Home Meds: New ondansetron 4 mg tablet,disintegrating 4 mg PO Q6H PRN (Reason: nausea and vomiting) Qty: 20 0RF No Action amlodipine 5 mg tablet 5 mg PO DAILY glimepiride 2 mg tablet 2 mg PO BID lisinopril 20 mg tablet 40 mg PO DAILY metformin 1,000 mg tablet 1,000 mg PO BID pravastatin 20 mg tablet 20 mg PO DAILY aspirin 81 mg tablet,delayed release (DR/EC) 81 mg PO DAILY lorazepam [Ativan] 1 mg tablet 1 mg PO Q8H PRN (Reason: alcohol withdrawal) 7 Days Qty: 20 0RF Print Language: Romanian Instructions: Acute Nausea and Vomiting (ED) Referrals: Physician,Non-Staff, MD [Physician] - 1 week
[2024-07-12] MEDS: 0.9 % SODIUM CHLORIDE 1,000 ML 1000 ML IV (15:49)
[2024-07-12] MEDS: ONDANSETRON PF 4 MG/2 ML VIAL IV (15:49)
[2024-07-12 15:55] LABS: Basophils Absolute Auto 0.1 10^3/uL (0.0-0.1); Basophils Percent Auto 0.9 % (0.2-2.0); Eosinophils Absolute Auto 0.1 10^3/uL (0.0-0.7); Eosinophils Percent Auto 1.5 % (0.9-7.0); Hematocrit 41.8 % (42.0-54.0); Hemoglobin 14.4 g/dL (14.0-18.0); Immature Granulocytes Abs Auto 0.03 10^3/uL (0.00-0.03); Immature Granulocytes Pct Auto 0.3 % (0.0-0.5); Lymphocytes Percent Auto 34.4 % (20.5-60.0); Mean Corpuscular HGB Conc 34.4 g/dL (29.9-35.2); Mean Corpuscular Hemoglobin 32.9 pg (25.9-34.0); Mean Corpuscular Volume 95.4 fL (80.0-94.0); Mean Platelet Volume 10.6 fL (9.5-13.5); Monocytes Absolute Auto 0.4 10^3/uL (0.3-0.8); Neutrophils Absolute Auto 5.1 10^3/uL (1.4-6.5); Neutrophils Percent Auto 57.9 % (43.0-75.0); Platelet Count 236 10^3/uL (150-450); Red Blood Count 4.38 10^6/uL (4.70-6.10); Red Cell Distribution Width 12.2 % (11.0-15.0); White Blood Count 8.8 10^3/uL (4.0-11.0)
[2024-07-12 16:03] LABS: Anion Gap 14.7; BUN Creatinine Ratio 15.7; Calcium 8.4 mg/dL (8.5-10.1); Carbon Dioxide 26.2 mmol/L (21.0-32.0); Chloride 98 mmol/L (98-107); Estimated GFR (African America >60 (>=60 mL/min/1.73m^2); Estimated GFR (Non-African Ame >60 (>=60 mL/min/1.73m^2); Glucose 259 mg/dL (74-106); Potassium 3.9 mmol/L (3.5-5.1); Sodium 135 mmol/L (136-145)
[2024-07-12 16:07] LABS: Influenza Virus A Antigen Negative; Influenza Virus B Antigen Negative; Internal Control Within Normal Limits; SARS-CoV-2 Ag NEGATIVE (NEGATIVE)
== END 2024-07-12 16:54 | disposition home or self-care (01) ==
PROVIDERS: Emergency Provider Emergency Medicine; PCP Nurse Practitioner Family
DX: R11.12 Projectile vomiting (principal); Z79.899 Other long term (current) drug therapy; F17.200 Nicotine dependence, unspecified, uncomplicated; I10 Essential (primary) hypertension
CPT/HCPCS: 36415; 80048; 85025; 87804; 87811; 93005; 96361; 96374; 99285; J2405

== ENCOUNTER 2024-09-01 10:46 | Emergency (ER) | payer MEDICAID, SELFPAY ==
[2024-09-01 10:51] VITALS: BP 164/100; PULSE 106; TEMP 37.1; O2SAT 96; BMI 37.9
--- OUTSIDE RECORDS SUMMARY | 2024-09-01 11:00 | XMS_ITS | CCD ---
Author Organization [facility] Care Team Providers Care Comprehensive Ophthalmologist Name Role Phone DR ADDIE STARK Primary Care Unavailable DILIP JAEGER Admitting Unavailable DILIP JAEGER Consulting Unavailable DILIP JAEGER Attending Unavailable HORACE SOTO Consulting Unavailable DARIA SMITH Primary Care Unavailable AMARA LAWSON Attending UnavailAMARA Dorman Attending UnavailAMARA Dorman Referring UnavailDARIA Enriquez Primary Care Unavailable DOMENICO MASON Attending Unavailable DARIA SMITH Primary Care Unavailable Yazan MADRIGAL Attending Unavailable DARIA SMITH Attending Unavailable DARIA SMITH Referring Unavailable DARIA SMITH Primary Care Unavailable Schchristopher NOUGAT CUTTER MACHINE-MARKET DEVELOPER, Daria Primary Care Provide r Allergies Allergy Classification Reported Allergen(s) Allergy Type Date of Onset Reaction(s) Facility (1 source) Naltrexone Drug Allergy [address] [facility] Repository (11 sources) Penicillins; Translations: [PENICILLINS] Propensity to adverse reactions to drug (disorder) 0 [facility] Repository Medications Current Medications Medication Drug Class(es) Dates Sig (Normalized) Sig (Original) amLODIPine 5 mg oral tablet (13 sources) Dihydropyridine Calcium Channel Mackenzie Start: 10-24-2023 End: 03-19-2024 take 1 tablet by mouth in the morning amLODIPine (NORVASC) 5 mg tablet Indications: Essential hypertension Take 1 tablet (5 mg total) by mouth in the morning. 90 tablet 1 03/19/2024 Active Start: 01-21-2023 End: 10-22-2023 take 1 tablet by mouth in the morning amLODIPine (NORVASC) 5 mg tablet Take 1 tablet (5 mg total) by mouth in the morning. 90 tablet 07/15/2023 10/22/2023 Discontinued (Reorder) aspirin 81 mg delayed release oral tablet (9 sources) Platelet Aggregation Inhibitor, Nonsteroidal Anti-inflammatory Drug Start: 05-19-2022 take 1 tablet by mouth in the morning aspirin 81 mg Indications: Type 2 diabetes mellitus without complication, without long-term current use of insulin ([facility]) Take 1 tablet (81 mg total) by mouth in the morning. 30 tablet 11 05/19/2022 Active azithromycin 250 mg oral tablet (1 source) Macrolide Antimicrobial Start: 03-19-2024 End: 03-24-2024 take 1 tablet by mouth in the morning, then take 2 tablets by mouth once daily, then take 1 tablet by mouth once daily azithromycin (ZITHROMAX) 250 mg tablet Take 1 tablet (250 mg total) by mouth in the morning for 5 days. Take 2 tablets the first day, then 1 tablet daily for 4 days.. 6 tablet 03/19/2024 03/24/2024 Active blood-glucose meter misc (11 sources) Start: 03-19-2024 blood-glucose meter misc Indications: Type 2 diabetes mellitus without complication, without long-term current use of insulin ([facility]) One unit / make sure covered by insurance 1 each 03/19/2024 Active Start: 07-15-2023 End: 03-19-2024 blood-glucose meter misc Ind ications: Type 2 diabetes mellitus without complication, without long-term current use of insulin ([facility]) One unit / make sure covered by insurance 1 each 07/15/2023 03/19/2024 Discontinued (Reorder) Start: 07-15-2023 blood-glucose meter misc Indications: Type 2 diabetes mellitus without complication, without long-term current use of insulin ([facility]) One unit / make sure covered by insurance 1 each 07/15/2023 Active Start: 07-15-2023 blood-glucose meter misc Indications: Type 2 diabetes mellitus without complication, without long-term current use of insulin ([facility]) One unit / make sure covered by insurance 1 each 0 07/15/2023 Active Start: 04-01-2020 End: 07-14-2023 blood-glucose meter misc Ind ications: Type 2 diabetes mellitus without complication, without long-term current use of insulin ([facility]) One unit / make sure covered by insurance 1 each 0 04/01/2020 07/14/2023 Discontinued (Reorder) glimepiride 2 mg oral tablet (12 sources) Sulfonylurea Start: 07-21-2022 End: 03-19-2024 take 1 tablet by mouth in the morning, then take 1 tablet by mouth at bedtime glimepiride (AMARYL) 2 mg tablet Take 1 tablet (2 mg total) by mouth in the morning and 1 tablet (2 mg total) before bedtime. 180 tablet 1 03/19/2024 Active lisinopril 20 mg oral tablet (12 sources) Angiotensin Converting Enzyme Inhibitor Start: 03-02-2023 End: 03-19-2024 take 1 tablet by mouth in the morning, then take 1 tablet by mouth at bedtime lisinopriL (PRINIVIL,ZESTRIL ) 20 mg tablet Indications: Essential hypertension Take 1 tablet (20 mg total) by mouth in the morning and 1 tablet (20 mg total) before bedtime. 180 tablet 1 03/19/2024 Active LORazepam 0.5 mg oral tablet (2 sources) Benzodiazepine Start: 08-08-2023 End: 08-10-2023 take 1 tablet by mouth in the morning, then take 1 tablet by mouth at bedtime LORazepam (ATIVAN) 0.5 mg tablet Indications: Alcohol withdrawal syndrome without complication (CMS-HCC) Take 1 tablet (0.5 mg total) by mouth in the morning and 1 tablet (0.5 mg total) before bedtime. Do all this for 2 days. 4 tablet 08/08/2023 08/10/2023 Active metFORMIN hydrochloride 1000 mg oral tablet (12 sources) Biguanide Start: 03-25-2023 End: 03-19-2024 take 1 tablet by mouth twice daily for diabetes mellitus metFORMIN (GLUCOPHAGE) 1000 mg tablet Indications: Type 2 diabetes mellitus without complication, without long-term current use of insulin (CMS-HCC) take 1 tablet by mouth twice a day for diabetes 180 tablet 1 03/19/2024 Active pravastatin sodium 20 mg oral tablet (12 sources) HMG-CoA Reductase Inhibitor Start: 03-25-2023 End: 03-19-2024 take 1 tablet by mouth in the morning pravastatin (PRAVACHOL) 20 mg tablet Take 1 tablet (20 mg total) by mouth in the morning. 90 tablet 1 03/19/2024 Active Problems Active Problems Problem Classification Problem Date Documented Da te Episodic/Chronic Alcohol-related disorders (10 sources) Alcohol withdrawal syndrome; Translations: [Alcohol withdrawal syndrome without complication (CMS-HCC)] Onset: 09-22-2018 08-08-2023 Chronic Anxiety disorders (10 sources) Anxiety disorder, unspecified; Translations: [Generalized anxiety disorder] Onset: 03-22-2018 06-20-2019 Chronic Cardiac dysrhythmias (1 source) Ventricular premature depolarization; Translations: [VENTRICULR PREMATURE DEPOLARIZATION] Onset: 05-14-2022 Chronic Conduction disorders (9 sources) Right bundle branch block; Translations: [Unspecified right bundle-branch block] Onset: 03-22-2018 03-22-2018 Chronic Diabetes mellitus without complication (16 sources) Type 2 diabetes mellitus without complications; Translations: [Type 2 diabetes mellitus without complication] Onset: 03-22-2018 03-22-2018 Chronic Disorders of lipid metabolism (9 sources) Mixed hyperlipidemia; Translations: [Mixed hyperlipidemia] Onset: 03-22-2018 03-22-2018 Chronic Essential hypertension (14 sources) Essential (primary) hypertension; Translations: [Essential hypertension] Onset: 03-22-2018 03-22-2018 Chronic Other aftercare (1 source) 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; Translations: [INTERMEDIATE CURRENT USE OF ASPIRIN] Onset: 05-14-2022 Episodic Other aftercare (1 source) penitentiary (current) use of oral hypoglycemic drugs; Translations: [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 IMPROVEMENT INSPECTOR USE ORAL HYPOGLYCEMIC DX] Onset: 05-14-2022 Episodic Other liver diseases (1 source) Fatty (change of) liver, not elsewhere classified; Translations: [Fatty (change of) liver, not elsewhere classified] Onset: 03-19-2024 Chronic Other liver diseases (2 sources) Steatosis of liver; Translations: [Fatty (change of) liver, not elsewhere classified] 03-19-2024 Chronic Other upper respiratory infections (2 sources) Acute maxillary sinusitis, unspecified; Translations: [Acute maxillary sinusitis] Onset: 03-19-2024 03-19-2024 Episodic Substance-related disorders (9 sources) Marijuana user; Translations: [Cannabis use, unspecified, uncomplicated] 03-22-2018 Episodic Unclassified (1 source) Alcohol use, unspecified with withdrawal, uncomplicated; Translations: [Alcohol use, unspecified with withdrawal, uncomplicated] Onset: 08-10-2023 Unclassified (1 source) Heart Palpitations Onset: 08-08-2023 Unclassified (1 source) BP Onset: 08-08-2023 Unclassified (1 source) Annual Exam Onset: 03-19-2024 Past or Other Problems Problem Classification Problem Date Documented Da te Episodic/Chronic Cardiac dysrhythmias (14 sources) Palpitations; Translations: [Tachycardia, unspecified] Onset: 03-22-2018 Episodic Mood disorders (9 sources) Mood disorders Onset: 02-24-2021 02-24-2021 Other and unspecified benign neoplasm (9 sources) Dysplastic nevus of skin; Translations: [Melanocytic nevi, unspecified] Onset: 03-22-2018 Resolved: 09-22-2018 09-22-2018 Episodic Other diseases of kidney and ureters (9 sources) Cyst of kidney; Translations: [Cyst of kidney, acquired] Onset: 03-22-2018 03-22-2018 Episodic Other nutritional; endocrine; and metabolic disorders (9 sources) Severe obesity; Translations: [Morbid (severe) obesity due to excess calories] Onset: 03-22-2018 Resolved: 06-20-2019 06-20-2019 Chronic Residual codes; unclassified (9 sources) Stopped drinking alcohol; Translations: [Personal history of other specified conditions] Onset: 03-22-2018 Resolved: 09-22-2018 09-22-2018 Episodic Substance-related disorders (9 sources) Drug abuse; Translations: [Other psychoactive substance abuse, uncomplicated] Onset: 09-30-2018 Resolved: 02-24-2021 02-24-2021 Chronic Unclassified (9 sources) Onset: 03-17-2023 Resolved: 03-19-2024 03-17-2023 Results Test Name Value Interpretation Reference Range Facil ity BASIC METABOLIC PANLon 08-09 Anion gap [Moles/Vol] 10 mmol/L Normal 5-[address] [facility] Comment on above: Performed By: #### C CLAIRE, DICK, 5643-2, 82513-8 #### [facility] ([id number]) [address] [place] [address], [place] [address] Calcium [Mass/Vol] 9.1 mg/dL Normal 8.5-10.5 [facility] Comment on above: Performed By: #### C CLAIRE, DICK, 5643-2, 34855-4 #### [facility] ([id number]) [address] [place] [address] 23807 Chloride [Moles/Vol] 101 mmol/L Normal 98-[address] [facility] Comment on above: Performed By: #### C CLAIRE, DICK, 5643-2, 67986-2 #### [facility] ([id number]) [address] [place] [address] 84823 CO2 [Moles/Vol] 25 mmol/L Normal 22-[address] [facility] Comment on above: Performed By: #### C CLAIRE, BMP, 5643-2, 08506-3 #### [facility] ([id number]) [address] [place] [address] 84343 Creatinine [Mass/Vol] 0.74 mg/dL Normal 0.70-1.[address] [facility] Comment on above: Result Comment: METH OD TRACEABLE TO IDMS STANDARD Performed By: #### C DICK RANGEL, 5643-2, 19034-8 #### [facility] ([id number]) [address] [place] [address] 98139 eGFR (CKD-EPI) NON-RACE DEPENDENT >90 Normal >[address] [facility] Comment on above: Result Comment: Reported eGFR is based on the CKD-EPI 2021 equation that does not use a race coefficient. Performed By: #### C CLAIRE, BMP, 5643-2, 16939-4 #### [facility] ([id number]) [address] [place] [address] 55374 Glucose [Mass/Vol] 155 mg/dL High 65-99 [facility] Comment on above: Performed By: #### C CLAIRE, BMP, 5643-2, 25396-5 #### [facility] ([id number]) [address] [place] [address] Potassium [Moles/Vol] 3.7 mmol/L Normal 3.5-5.[address] [facility] Comment on above: Performed By: #### C DICK RANGEL, 5643-2, 05417-5 #### [facility] ([id number]) [address] [place] [address] 44672 Sodium [Moles/Vol] 136 mmol/L Normal 134-146 [facility] Comment on above: Performed By: #### C DICK RANGEL, 5643-2, 38119-6 #### [facility] ([id number]) [address] [place] [address] 92723 Urea nitrogen [Mass/Vol] 14 mg/dL Normal 5-[address] [facility] Comment on above: Performed By: #### DICK aBca BCA, 5643-2, 10919-7 #### [facility] ([id number]) [address] [place] [address] 20521 CBC AND AUTO DIFFon 08-09- 24 ABSOLUTE BASOPHIL 0.1 X10E9/L Normal 0.0-0.2 [facility] Comment on above: Performed By: #### C DICK RANGEL, 5643-2, 03643-3 #### [facility] ([id number]) [address] [place] [address] 45875 ABSOLUTE NEUTROPHIL 6.6 X10E9/L Normal 1.5-6.6 [facility] Comment on above: Performed By: #### C DICK RANGEL, 5643-2, 24525-3 #### [facility] ([id number]) [address] [place] [address] 85317 Basophils/100 WBC (Bld) 0.6 % Normal [facility] Comment on above: Performed By: #### C DICK RANGEL, 5643-2, 28179-2 #### [facility] ([id number]) [address] [place] [address] 32086 Eosinophils (Bld) [#/Vol] 0.2 10*3/uL Normal 0.0-0.[address] [facility] Comment on above: Performed By: #### C DICK RANGEL, 5643-2, 82821-4 #### [facility] ([id number]) [address] [place] [address] 99721 Eosinophils/100 WBC (Bld) 1.7 % Normal [facility] Comment on above: Performed By: #### C DICK RANGEL, 5643-2, 14669-9 #### [facility] ([id number]) [address] [place] [address] 14743 Erythrocyte distribution width (RBC) [Ratio] 13.8 % Normal 11.5-15.[address] [facility] Comment on above: Performed By: #### DICK Baca BCA, 43-2, 21713-1 #### [facility] ([id number]) [address] [place] [address] 91885 Hematocrit (Bld) [Volume fraction] 43.1 % Normal 39-[address] [facility] Comment on above: Performed By: #### C DICK RANGEL, 43-2, 48025-9 #### [facility] ([id number]) [address] [place] [address] 85973 Hemoglobin (Bld) [Mass/Vol] 15.2 g/dL Normal 13.0-17.[address] [facility] Comment on above: Performed By: #### DICK Baca BCA, 5643-2, 61280-3 #### [facility] ([id number]) [address] [place] [address] 54838 Lymphocytes (Bld) [#/Vol] 2.7 10*3/uL Normal 1.0-3.[address] [facility] Comment on above: Performed By: #### C DICK RANGEL, 5643-2, 27879-9 #### [facility] ([id number]) [address] [place] [address] 39197 Lymphocytes/100 WBC (Bld) 26.4 % Normal [facility] Comment on above: Performed By: #### C CLAIRE, DICK, 5642-2, 15733-9 #### [facility] ([id number]) [address] [place] [address] 27389 MCH (RBC) [Entitic mass] 34.5 pg High 27-[address] [facility] Comment on above: Performed By: #### C CLAIRE, DICK, 5642-2, 41521-3 #### [facility] ([id number]) [address] [place] [address] 53351 MCHC (RBC) [Mass/Vol] 35.2 g/dL Normal 32-[address] [facility] Comment on above: Performed By: #### C CLAIRE, DICK, 5642-2, 64530-0 #### [facility] ([id number]) [address] [place] [address] 41284 MCV (RBC) [Entitic vol] 98 fL Normal 80-[address] [facility] Comment on above: Performed By: #### C CLAIRE, DICK, 43-, 39982-7 #### [facility] ([id number]) [address] [place] [address] 64817 Monocytes (Bld) [#/Vol] 0.7 10*3/uL Normal 0-0.[address] [facility] Comment on above: Performed By: #### C CLAIRE, BMP, 5642-2, 59345-2 #### [facility] ([id number]) [address] [place] [address] 16587 Monocytes/100 WBC (Bld) 6.8 % Normal [facility] Comment on above: Performed By: #### C CLAIRE, BMP, 5642-2, 95062-0 #### [facility] ([id number]) [address] [place] [address] 25804 Neutrophils/100 WBC (Bld) 64.5 % Normal [facility] Comment on above: Performed By: #### DICK Baca BCA, 5643-2, 21310-8 #### [facility] ([id number]) [address] [place] [address] 02981 Platelet mean volume (Bld) [Entitic vol] 9.1 fL Normal 7-[address] [facility] Comment on above: Performed By: #### DICK Baca BCA, 5643-2, 49694-6 #### [facility] ([id number]) [address] [place] [address] 29568 Platelets (Bld) [#/Vol] 252 10*3/uL Normal 150-[address] [facility] Comment on above: Performed By: #### C CLAIRE [facility], 5643-2, 73335-3 #### [facility] ([id number]) [address] [place] [address] 25544 RBC COUNT 4.40 X10E12/L Normal 4.10-5.[address] [facility] Comment on above: Performed By: #### DICK Baca BCA, 5643-2, 95005-1 #### [facility] ([id number]) [address] [place] [address] 33458 WBC (Bld) [#/Vol] 10.2 10*3/uL Normal 4.0-11.0 [facility] Comment on above: Performed By: #### DICK Baca BCA, 5643-2, 65263-3 #### [facility] ([id number]) [address] [place] [address] 87219 ETHANOLon 08-10-2023 Ethanol [Mass/Vol] mg/dL Normal 0.00-0.08 [facility] Comment on above: Result Comment: This report is intended for use in clinical monitoring or management of patients. Performed By: #### C CLAIRE, CMP, , 90028-7 #### [facility] ([id number]) [address] [place] [address] 89016 Troponin I.cardiac High sens itivity method [Mass/Vol]on 08-10-2023 TROPONIN I, HIGH SENSITIVITY 4 ng/L Normal <[address] [facility] Comment on above: Performed By: #### C BCA, CMP, , 27160-9 #### [facility] ([id number]) [address] [place] [address] 93089 CBC AND AUTO DIFFon 08-08-19 24 ABSOLUTE BASOPHIL 0.1 X10E9/L Normal 0.0-0.2 [facility] Comment on above: Performed By: #### C BCA, CMP, , 11156-2 #### [facility] ([id number]) [address] [place] [address] 64035 ABSOLUTE NEUTROPHIL 8.3 X10E9/L High 1.5-6.6 [facility] Comment on above: Performed By: #### C BCA, CMP, , 58378-4 #### [facility] ([id number]) [address] [place] [address] 14983 Basophils/100 WBC (Bld) 0.9 % Normal [facility] Comment on above: Performed By: #### C BCA, CMP, , 98543-1 #### [facility] ([id number]) [address] [place] [address] 80954 Eosinophils (Bld) [#/Vol] 0.1 10*3/uL Normal 0.0-0.[address] [facility] Comment on above: Performed By: #### Phuong BCA, CMP, , 50200-8 #### [facility] ([id number]) [address] [place] [address] 43369 Eosinophils/100 WBC (Bld) 0.7 % Normal [facility] Comment on above: Performed By: #### C CLAIRE CMP, , 13394-3 #### [facility] ([id number]) [address] [place] [address] 05256 Erythrocyte distribution width (RBC) [Ratio] 13.3 % Normal 11.5-15.[address] [facility] Comment on above: Performed By: #### C CLAIRE, CMP, , 36031-9 #### [facility] ([id number]) [address] [place] [address] 86676 Hematocrit (Bld) [Volume fraction] 42.6 % Normal 39-[address] [facility] Comment on above: Performed By: #### C CLAIRE, CMP, , 53115-3 #### [facility] ([id number]) [address] [place] [address] 81672 Hemoglobin (Bld) [Mass/Vol] 15.0 g/dL Normal 13.0-17.[address] [facility] Comment on above: Performed By: #### C CLAIRE CMP, , 35084-8 #### [facility] ([id number]) [address] [place] [address] 08378 Lymphocytes (Bld) [#/Vol] 3.8 10*3/uL High 1.0-3.[address] [facility] Comment on above: Performed By: #### C CLAIRE, CMP, , 02976-9 #### [facility] ([id number]) [address] [place] [address] 02173 Lymphocytes/100 WBC (Bld) 30.3 % Normal [facility] Comment on above: Performed By: #### C CLAIRE CMP, , 70556-2 #### [facility] ([id number]) [address] [place] [address] 99778 MCH (RBC) [Entitic mass] 33.9 pg Normal 27-[address] [facility] Comment on above: Performed By: #### C CLAIRE, CMP, , 11200-2 #### [facility] ([id number]) [address] [place] [address] 33882 MCHC (RBC) [Mass/Vol] 35.2 g/dL Normal 32-[address] [facility] Comment on above: Performed By: #### Phuong RANGEL, CMP, , 79115-7 #### [facility] ([id number]) [address] [place] [address] 28784 MCV (RBC) [Entitic vol] 96 fL Normal 80-[address] [facility] Comment on above: Performed By: #### Phuong BCA, CMP, , 75051-1 #### [facility] ([id number]) [address] [place] [address] 93607 Monocytes (Bld) [#/Vol] 0.2 10*3/uL Normal 0-0.[address] [facility] Comment on above: Performed By: #### Phuong BCA, CMP, , 61502-0 #### [facility] ([id number]) [address] [place] [address] 27235 Monocytes/100 WBC (Bld) 1.8 % Normal [facility] Comment on above: Performed By: #### C BCA, CMP, , 97862-6 #### [facility] ([id number]) [address] [place] [address] 89386 Neutrophils/100 WBC (Bld) 66.3 % Normal [facility] Comment on above: Performed By: #### Phuong BCA, CMP, , 32138-6 #### [facility] ([id number]) [address] [place] [address] 68379 Platelet mean volume (Bld) [Entitic vol] 9.2 fL Normal 7-[address] [facility] Comment on above: Performed By: #### C BCA, CMP, , 36579-4 #### [facility] ([id number]) [address] [place] [address] 79317 Platelets (Bld) [#/Vol] 267 10*3/uL Normal 150-[address] [facility] Comment on above: Performed By: #### C BCA, CMP, , 42082-2 #### [facility] ([id number]) [address] [place] [address] 21943 RBC COUNT 4.43 X10E12/L Normal 4.10-5.[address] [facility] Comment on above: Performed By: #### C BCA, CMP, , 02119-3 #### [facility] ([id number]) [address] [place] [address] 48554 WBC (Bld) [#/Vol] 12.5 10*3/uL High 4.0-11.0 [facility] Comment on above: Performed By: #### C BCA, CMP, , 07182-1 #### [facility] ([id number]) [address] [place] [address] 47209 COMPREHENSIVE METABOLIC PANE Abhishek 08-08-2023 Albumin [Mass/Vol] 4.4 g/dL Normal 3.2-5.3 [facility] Comment on above: Performed By: #### C BCA, CMP, , 19627-1 #### [facility] ([id number]) [address] [place] [address] 98174 ALP [Catalytic activity/Vol] 81 U/L Normal 39-[address] [facility] Comment on above: Performed By: #### C BCA, CMP, , 06113-3 #### [facility] ([id number]) [address] [place] [address] 57529 ALT [Catalytic activity/Vol] 101 U/L High 0-[address] [facility] Comment on above: Performed By: #### C BCA, CMP, , 50200-4 #### [facility] ([id number]) [address] [place] [address] 15399 Anion gap [Moles/Vol] 12 mmol/L Normal 5-[address] [facility] Comment on above: Performed By: #### C BCA, CMP, , 21378-9 #### [facility] ([id number]) [address] [place] [address] 77800 AST [Catalytic activity/Vol] 63 U/L High 0-[address] [facility] Comment on above: Performed By: #### C BCA, CMP, , 44830-5 #### [facility] ([id number]) [address] [place] [address] [address] Bilirubin [Mass/Vol] 0.8 mg/dL Normal 0.3-1.[address] [facility] Comment on above: Performed By: #### C BCA, CMP, , 75629-4 #### [facility] ([id number]) [address] [place] [address]63 Calcium [Mass/Vol] 9.3 mg/dL Normal 8.5-10.5 [facility] Comment on above: Performed By: #### C BCA, CMP, , 93090-9 #### [facility] ([id number]) [address] [place] [address] 99733 Chloride [Moles/Vol] 96 mmol/L Low 98-[address] [facility] Comment on above: Performed By: #### C CLAIRE JASON, , 33440-1 #### [facility] ([id number]) [address] [place] [address] 05416 CO2 [Moles/Vol] 23 mmol/L Normal 22-[address] [facility] Comment on above: Performed By: #### C JASON RANGEL, , 28478-6 #### [facility] ([id number]) [address] [place] [address] 79359 Creatinine [Mass/Vol] 0.74 mg/dL Normal 0.70-1.[address] [facility] Comment on above: Result Comment: METH OD TRACEABLE TO IDMS STANDARD Performed By: #### C JASON RANGEL, , 90881-9 #### [facility] ([id number]) [address] [place] [address] 99108 eGFR (CKD-EPI) NON-RACE DEPENDENT >90 Normal >[address] [facility] Comment on above: Result Comment: Reported eGFR is based on the CKD-EPI 2020 equation that does not use a race coefficient. Performed By: #### C JASON RANGEL, , 87266-4 #### [facility] ([id number]) [address] [place] [address] 19271 Glucose [Mass/Vol] 170 mg/dL High 65-99 [facility] Comment on above: Performed By: #### C CLAIRE CMP, , 85320-1 #### [facility] ([id number]) [address] [place] [address] 79907 Potassium [Moles/Vol] 3.7 mmol/L Normal 3.5-5.[address] [facility] Comment on above: Performed By: #### C CLAIRE CMP, , 32603-3 #### [facility] ([id number]) [address] [place] [address] Protein [Mass/Vol] 8.7 g/dL High 6.0-8.0 [facility] Comment on above: Performed By: #### C JASON RANGEL, , 03405-3 #### [facility] ([id number]) [address] [place] [address] 21193 Sodium [Moles/Vol] 131 mmol/L Low 134-146 [facility] Comment on above: Performed By: #### C JASON RANGEL, , 41072-9 #### [facility] ([id number]) [address] [place] [address] 89040 Urea nitrogen [Mass/Vol] 12 mg/dL Normal 5-[address] [facility] Comment on above: Performed By: #### C JASON RANGEL, , 63396-2 #### [facility] ([id number]) [address] [place] [address] 99208 Fibrin D-dimer DDU (PPP) [Ma ss/Vol]on 08-08-2023 D DIMER <150 Normal <[address] [facility] Comment on above: Result Comment: Results <255 ng/mL DDU: The presence of a VTE can safely be excluded with a negative D-Dimer result and Wells score. A negative result doesn't exclude the possibility of DIC. The test be repeated along with other diagnostic tests if the patient's symptoms persist or worsen. [email or web address] Performed By: #### C JASON RANGEL, , 51000-9 #### [facility] ([id number]) [address] [place] [address] 70855 MAGNESIUMon 08-08-2023 Magnesium [Mass/Vol] 1.7 mg/dL Low 1.8-2.[address] [facility] Comment on above: Performed By: #### C JASON RANGEL, 05724-0, 63009-1 #### [facility] ([id number]) [address] [place] [address] 63171 Troponin I.cardiac High sens itivity method [Mass/Vol]on 08-08-2023 1 HOUR TROP I, HIGH SENSITIVITY 10 ng/L Normal <[address] [facility] Comment on above: Performed By: #### 8 9579-7 #### [facility] ([id number]) [address] [place] [address] [place] [address] TROPONIN I, HIGH SENSITIVITY 13 ng/L Normal <[address] [facility] Comment on above: Performed By: #### C CLAIRE [facility], 75612-4, 31734-5 #### [facility] ([id number]) [address] [place] [address] 13411 URN MACROSCOPIC NURon 2023 BILIRUBIN DANG Negative Normal NEG [facility] Comment on above: Performed By: #### N UM #### [facility] ([id number]) [address] [place] [address] [place] [address] BLOOD/HGB DANG Negative Normal NEG [facility] Comment on above: Performed By: #### N UM #### [facility] ([id number]) [address] [place] [address] [place] [address] GLUCOSE DANG Negative Normal NEG [facility] Comment on above: Performed By: #### N UM #### [facility] ([id number]) [address] [place] [address] [place] [address] KETONES DANG 15 mg/dL Abnormal NEG [facility] Comment on above: Performed By: #### N UM #### [facility] ([id number]) [address] [place] [address] [place] [address] LEUKOCYTE ESTERASE DANG Negative Normal NEG [facility] Comment on above: Performed By: #### N UM #### [facility] ([id number]) [address] [place] [address] 37642 NITRITE DANG Negative Normal NEG [facility] Comment on above: Performed By: #### N UM #### [facility] ([id number]) [address] [place] [address] 54686 PH DANG 5.5 Normal 5.0-8.[address] [facility] Comment on above: Performed By: #### N UM #### [facility] ([id number]) [address] [place] [address] 16871 PROTEIN DANG Negative Normal NEG [facility] Comment on above: Performed By: #### N UM #### [facility] ([id number]) [address] [place] [address] 14291 SPECIFIC GRAVITY DANG <=1.005 Normal 1.003-1.[address] [facility] Comment on above: Performed By: #### N UM #### [facility] ([id number]) [address] [place] [address] 24566 UROBILINOGEN DANG 0.2 eu/dL Normal <1.1 [facility] Comment on above: Performed By: #### N UM #### [facility] ([id number]) [address] [place] [address] 79605 XR CHEST 1 VWon 08-08-2023 XR CHEST 1 VW XR CHEST 1 VW XR CHEST 1 VW 08/08/2023 2:55 AM INDICATION: palpitations, dizziness COMPARISON: XR chest 03/16/2020 TECHNIQUE: AP upright view of the chest obtained. FINDINGS: Lines/tubes: None. Respiratory: No pneumothorax, pleural effusion, or focal consolidation. Cardiomediastinum: Nonenlarged. IMPRESSION: * No acute pulmonary process. Approved by Resident: Rivera Magana MD on 08/08/2023 3:08 AM I, Ivan Sosa MD have personally reviewed the image(s) and agree with and/or edited the report Finalized by Ivan Sosa MD on 08/08/2023 3:39 AM Normal [facility] CBC AUTO DIFFon 05-12-2022 BASO # 0.1 103/ul Normal 0.0-0.1 [facility] Comment on above: Performed By: #### C BC #### [facility] [address] [address] [address] Avi Limon Basophils/100 WBC (Bld) 0.5 % Normal 0.2-2.0 [facility] Comment on above: Performed By: #### C BC #### [facility] [address] [address] [address] Avi Limon EO # 0.1 103/ul Normal 0.0-0.7 [facility] Comment on above: Performed By: #### C BC #### [facility] [address] [place] [address] Dr. Avi Limon Eosinophils/100 WBC (Bld) 1.0 % Normal 0.9-7.0 [facility] Comment on above: Performed By: #### C BC #### [facility] [address] [place] [address] Dr. Avi Limon Erythrocyte distribution width (RBC) [Ratio] 12.2 % Normal 11.0-15.0 [facility] Comment on above: Performed By: #### C BC #### [facility] [address] [place] [address] Dr. Avi Limon Hematocrit (Bld) [Volume fraction] 45.2 % Normal 42.0-54.0 [facility] Comment on above: Performed By: #### C BC #### [facility] [address] [place] [address] Dr. Avi Limon Hemoglobin (Bld) [Mass/Vol] 14.6 g/dL Normal 14.0-18.0 [facility] Comment on above: Performed By: #### C BC #### [facility] [address] [place] [address] Dr. Avi Limon IG # 0.04 10e3/ul Critically high 0.00-0.03 [facility] Comment on above: Performed By: #### C BC #### [facility] [address] [address] [address] Avi Limon IG % 0.4 % Normal 0.0-0.5 [facility] Comment on above: Performed By: #### C BC #### [facility] [address] [place] [address] Dr. Avi Limon LYMPH # 4.4 103/ul Critically high 1.2-3.8 [facility] Comment on above: Performed By: #### C BC #### [facility] [address] [place] [address] Dr. Avi Limon Lymphocytes/100 WBC (Bld) 39.8 % Normal 20.5-60.0 [facility] Comment on above: Performed By: #### C BC #### [facility] [address] [place] [address] Dr. Avi Limon MANUAL DIFF REQ NO Normal [facility] Comment on above: Performed By: #### C BC #### [facility] [address] [place] [address] Dr. Avi Limon MCH (RBC) [Entitic mass] 32.7 pg Normal 25.9-34.0 [facility] Comment on above: Performed By: #### C BC #### [facility] [address] [place] [address] Dr. Avi Limon MCHC (RBC) [Mass/Vol] 32.3 g/dL Normal 29.9-35.[address] [facility] Comment on above: Performed By: #### C BC #### [facility] [address] [place] [address] Dr. Avi Limon MCV (RBC) [Entitic vol] 101.1 fL Critically high 80.0-94.[address] [facility] Comment on above: Performed By: #### C BC #### [facility] [address] [place] [address] Dr. Avi Limon MONO # 0.6 103/ul Normal 0.3-0.[address] [facility] Comment on above: Performed By: #### C BC #### [facility] [address] [address] [address] Avi Limon Monocytes/100 WBC (Bld) 5.0 % Normal 1.7-12.[address] [facility] Comment on above: Performed By: #### C BC #### [facility] [address] [address] [address] Avi Limon NEUT # 5.9 103/ul Normal 1.4-6.5 [facility] Comment on above: Performed By: #### C BC #### [facility] [address] [address] [address] Avi Limon Neutrophils/100 WBC (Bld) 53.3 % Normal 43.0-75.[address] [facility] Comment on above: Performed By: #### C BC #### [facility] [address] [place] [address] Dr. Avi Limon Platelet mean volume (Bld) [Entitic vol] 11.1 fL Normal 9.5-13.[address] [facility] Comment on above: Performed By: #### C BC #### [facility] [address] [place] [address] Dr. Avi Limon PLT 238 103/ul Normal 150-[address] [facility] Comment on above: Performed By: #### C BC #### [facility] [address] [place] [address] Dr. Avi Limon RBC 4.47 106/ul Critically low 4.70-6.10 [facility] Comment on above: Performed By: #### C BC #### [facility] [address] [place] [address] Dr. Avi Limon WBC 11.0 103/ul Normal 4.0-11.[address] [facility] Comment on above: Performed By: #### C BC #### [facility] [address] [place] [address] Dr. Avi Limon PROF CHEM 8 (BAS METB)on Anion gap [Moles/Vol] 13.0 mmol/L Normal [facility] Comment on above: Performed By: #### H STROPN, BMP #### [facility] [address] [address] [address] Avi Limon Calcium [Mass/Vol] 9.6 mg/dL Normal 8.5-10.1 [facility] Comment on above: Performed By: #### H STROPN, BMP #### [facility] [address] [address] [address] Avi Limon Chloride [Moles/Vol] 91 mmol/L Critically low 98-107 [facility] Comment on above: Performed By: #### H STROPN, BMP #### [facility] [address] [place] [address] Dr. Avi Limon CO2 [Moles/Vol] 29.1 mmol/L Normal 21.0-32.0 [facility] Comment on above: Performed By: #### H STROPN, BMP #### [facility] [address] [place] [address] Dr. Avi Limon Creatinine [Mass/Vol] 0.80 mg/dL Normal 0.70-1.30 [facility] Comment on above: Performed By: #### H STROPN, BMP #### [facility] [address] [place] [address] Dr. Avi Limon EGFR-AF PALAUAN >60 Normal >=60 [facility] Comment on above: Performed By: #### H STROPN, BMP #### [facility] [address] [place] [address] Dr. Avi Limon EGFR-NON AF PALAUAN >60 Normal >=60 [facility] Comment on above: Performed By: #### H STROPN, BMP #### [facility] [address] [place] [address] Dr. Avi Limon Glucose [Mass/Vol] 178 mg/dL Critically high 74-106 [facility] Comment on above: Performed By: #### H STROPN, BMP #### [facility] [address] [place] [address] Dr. Avi Limon Potassium [Moles/Vol] 3.1 mmol/L Critically low 3.5-5.1 [facility] Comment on above: Performed By: #### H STROPN, BMP #### [facility] [address] [address] [address] Avi Limon Sodium [Moles/Vol] 130 mmol/L Critically low 136-145 [facility] Comment on above: Performed By: #### H WILLIAM, BMP #### [facility] [address] [place] [address] Dr. Avi Limon Urea nitrogen [Mass/Vol] 14.0 mg/dL Normal 7.0-18.0 [facility] Comment on above: Performed By: #### H WILLIAM, BMP #### [facility] [address] [address] [address] Avi Limon Urea nitrogen/Creatinine [Mass ratio] 17.5 mg/mg Normal [facility] Comment on above: Performed By: #### H WILLIAM, BMP #### [facility] [address] [place] [address] Dr. Avi Limon TROPONIN, HIGH SENSITIVITYon 05-12-2022 HSTROP 23.0 pg/mL Normal 4.0-76.1 [facility] Comment on above: Result Comment: CUT- OFF POINTS HAVE BEEN ESTABLISHED BASED ON THE FOURTH UNIVERSAL DEFINITIONS OF MYOCARDIAL INFARCTION. THE UPPER REFERENCE LIMIT (URL) OF TROPONIN, DEFINED THE 99TH PERCENTILE OF cTnI DISTRIBUTION IN A REFERENCE POPULATION, HAS BEEN CONFIRMED THE DECISION THRESHOLD FOR PA DIAGNOSIS. Performed By: #### H WILLIAM, BMP #### [facility] [address] [place] [address] Dr. Avi Limon XR CHEST 1 Von [...] by: HORACE SOTO Date: 2022-05-12 15:29 Normal [facility] Basic Metabolic Panelon 12-1 Calcium [Mass/Vol] 9.0 mg/dL Normal 8.2-10.2 [facility] Comment on above: Performed By: #### C BC, BMP, CK, CKMB, TROP #### [address] Chloride [Moles/Vol] 97 mmol/L Normal 95-114 [facility] Comment on above: Performed By: #### C BC, BMP, CK, CKMB, TROP #### [address] CO2 [Moles/Vol] 24.9 mmol/L Normal 22.0-30.0 [facility] Comment on above: Performed By: #### C BC, BMP, CK, CKMB, TROP #### [address] Creatinine [Mass/Vol] 0.70 mg/dL Normal 0.64-1.27 [facility] Comment on above: Performed By: #### C BC, BMP, CK, CKMB, TROP #### [address] Creatinine [Mass/Vol] 160.5741115092 mg/dL Normal [facility] Comment on above: Result Comment: PERF ORMED BY: [place] [address] PATHOLOGIST HIP HOP ARTIST GUANACO GRANADOS M.D. Performed By: #### C BC, BMP, CK, CKMB, TROP #### [address] Estimated GFR ( Santa > 60 [facility] Comment on above: Result Comment: GFR estimated reference range: According to KDOQI guidelines, <60 ml/min/1.73m2 is sufficient to diagnose a patient with chronic kidney disease. Performed By: #### C BC, BMP, CK, CKMB, TROP #### [address] Estimated GFR (Non- Am > 60 Normal [facility] Comment on above: Performed By: #### C BC, BMP, CK, CKMB, TROP #### [address] Glucose [Mass/Vol] 229 mg/dL High 70-100 [facility] Comment on above: Result Comment: [place] Glucose Reference Range is dependent on time and content of last meal. Glucose of more than 200 mg/dL in a nonstressed, ambulatory subject supports the diagnosis of Diabetes Mellitus. ADA recommended reference range Performed By: #### C BC, BMP, CK, CKMB, TROP #### [address] Potassium [Moles/Vol] 3.0 mmol/L Low 3.5-5.1 [facility] Comment on above: Performed By: #### C BC, BMP, CK, CKMB, TROP #### [address] Sodium [Moles/Vol] 133 mmol/L Low 136-146 [facility] Comment on above: Performed By: #### C BC, BMP, CK, CKMB, TROP #### [address] Urea nitrogen [Mass/Vol] 10 mg/dL Normal 9-23 [facility] Comment on above: Performed By: #### C BC, BMP, CK, CKMB, TROP #### [address] Complete Blood Count Auto Di ffon 03-30-2019 Basophils (Bld) [#/Vol] 0.1 10*3/uL Normal 0.0-0.2 [facility] Comment on above: Result Comment: PERF ORMED BY: [place] [address] PATHOLOGIST HIP HOP ARTIST GUANACO GRANADOS M.D. Performed By: #### C BC, BMP, CK, CKMB, TROP #### [address] Basophils/100 WBC (Bld) 0.8 % Normal . [facility] Comment on above: Performed By: #### C BC, BMP, CK, CKMB, TROP #### [place] [address] [place] Eosinophils (Bld) [#/Vol] 0.2 10*3/uL Normal 0.0-0.45 [facility] Comment on above: Performed By: #### C BC, BMP, CK, CKMB, TROP #### [facility] [address] [place] [address] [place] Eosinophils/100 WBC (Bld) 2.4 % Normal . [facility] Comment on above: Performed By: #### C BC, BMP, CK, CKMB, TROP #### [address] Erythrocyte distribution width (RBC) [Ratio] 12.6 % Normal 12.0-14.8 [facility] Comment on above: Performed By: #### C BC, BMP, CK, CKMB, TROP #### [address] Hematocrit (Bld) [Volume fraction] 38.4 % Low 38.8-50.0 [facility] Comment on above: Performed By: #### C BC, BMP, CK, CKMB, TROP #### [address] Hemoglobin (Bld) [Mass/Vol] 13.4 g/dL Normal 13.0-17.0 [facility] Comment on above: Performed By: #### C BC, BMP, CK, CKMB, TROP #### [place] [address] [place] Lymphocytes (Bld) [#/Vol] 3.1 10*3/uL Normal 1.00-4.8 [facility] Comment on above: Performed By: #### C BC, BMP, CK, CKMB, TROP #### [place] [address] [place] Lymphocytes/100 WBC (Bld) 33.4 % Normal . [facility] Comment on above: Performed By: #### C BC, BMP, CK, CKMB, TROP #### [address] MCH (RBC) [Entitic mass] 35.0 g/dL Normal 32.5-35.6 [facility] Comment on above: Performed By: #### C BC, BMP, CK, CKMB, TROP #### [facility] [address] MCH (RBC) [Entitic mass] 33.5 pg Normal 27.5-35.2 [facility] Comment on above: Performed By: #### C BC, BMP, CK, CKMB, TROP #### [facility] [address] MCV (RBC) [Entitic vol] 95.8 fL Normal 83.5-101 [facility] Comment on above: Performed By: #### C BC, BMP, CK, CKMB, TROP #### [facility] [address] Monocytes (Bld) [#/Vol] 0.6 10*3/uL Normal 0.0-0.8 [facility] Comment on above: Performed By: #### C BC, BMP, CK, CKMB, TROP #### [place] [address] [place] Monocytes/100 WBC (Bld) 6.6 % Normal . [facility] Comment on above: Performed By: #### C BC, BMP, CK, CKMB, TROP #### [address] Neutrophils (Bld) [#/Vol] 5.3 10*3/uL Normal 1.8-7.7 [facility] Comment on above: Performed By: #### C BC, BMP, CK, CKMB, TROP #### [place] [address] [place] Neutrophils/100 WBC (Bld) 56.8 % Normal . [facility] Comment on above: Performed By: #### C BC, BMP, CK, CKMB, TROP #### [place] [address] [place] Nucleated RBC/100 WBC (Bld) [Ratio] 0.3 % Normal 0-0.5 [facility] Comment on above: Performed By: #### C BC, BMP, CK, CKMB, TROP #### [facility] [address] Platelet mean volume (Bld) [Entitic vol] 9.4 fL Normal 6.6-10.1 [facility] Comment on above: Performed By: #### C BC, BMP, CK, CKMB, TROP #### [address] Platelets (Bld) [#/Vol] 228 10*3/uL Normal 150-450 [facility] Comment on above: Performed By: #### C BC, BMP, CK, CKMB, TROP #### [address] RBC (Bld) [#/Vol] 4.01 10*6/uL Normal 3.90-5.60 [facility] Comment on above: Performed By: #### C BC, BMP, CK, CKMB, TROP #### [address] WBC (Bld) [#/Vol] 9.4 10*3/uL Normal 4.5-11.0 [facility] Comment on above: Performed By: #### C BC, BMP, CK, CKMB, TROP #### [address] Creatine Kinaseon 03-30-2019 CK [Catalytic activity/Vol] 410 U/L High 22-269 [facility] Comment on above: Performed By: #### C BC, BMP, CK, CKMB, TROP #### [address] Creatinine Kinase MBon 03-30 CK.MB [Mass/Vol] 0.4 ng/mL Normal 0.00-2.50 [facility] Comment on above: Performed By: #### C BC, BMP, CK, CKMB, TROP #### [address] CK.MB [Mass/Vol] 1.8 ng/mL Normal 0.6-6.3 [facility] Comment on above: Performed By: #### C BC, BMP, CK, CKMB, TROP #### [facility] [address] ECG 12 lead ECGon 03-30-2019 ECG 12 lead ECG [facility] [place] [address] [place] [address] Electrocardiograph Report Signed Patient: Maciel Mohamud MR#: [id number] : 1980 Acct:[id number] Age/Sex: 39 / M ADM Date: 03/30/19 Loc: ER Room: Type: [facility] ER Attending Dr: Ordering Provider: Maciel Tucker [...] 03/30/19 1037 Signed By: 03/30/19 1555 Normal [facility] Troponin I(TnI)on 03-30-2019 Troponin I.cardiac [Mass/Vol] ng/mL Normal 0-0.02 [facility] Comment on above: Result Comment: JOSE ALEJANDRO PA Cut off value > or equal to 0.03 ng/mL in conjunction with clinical conditions of myocardial infarction. (www.[email or web address].org/guidelines) PERFORMED BY: [place] [address] PATHOLOGIST HIP HOP ARTIST GUANACO GRANADOS M.D. Performed By: #### C BC, BMP, CK, CKMB, TROP #### [address] XR chest 2V*on 03-30-2019 XR chest 2V* [facility] [place] [address] [place] [address] XRay Report Signed Patient: Maciel Mohamud MR#: [id number] : 1980 Acct:[id number] Age/Sex: 39 / M ADM Date: 03/30/19 Loc: ER Room: Type: [facility] ER Attending Dr: Ordering Provider: Maciel Tucker [...] Yazan Hansen M.D.03/30/2019 1:02 PM Dictation Location: [id number] Transcribed By: [facility] 03/30/19 1302 Dictated By: Yazan Hansen DO 03/30/19 1302 Signed By: 03/30/19 1302 Normal [facility] Vital Signs Date Time Vital Sign Value Performing Clinician Scotty villa 03-19-2024 15:33-0500 Body height 165.1 cm Daria GAMEZ Work Phone: [employer] 03-19-2024 15:33-0500 Body mass index (BMI) [Ratio] 39.44 kg/m2 Daria Smith APRN-TAMMIE Work Phone: [employer] 03-19-2024 15:33-0500 Body weight 107.5 kg Daria Smith APRN-TAMMIE Work Phone: [employer] 03-19-2024 15:33-0500 Diastolic blood pressure 84 mm[Hg] Daria Smith APRN-TAMMIE Work Phone: [employer] 03-19-2024 15:33-0500 Heart rate 86 /min Daria GAMEZ Work Phone: [facility] [employer] 03-19-2024 15:33-0500 Respiratory rate 18 /min Daria Smith APRN-MARKET DEVELOPER Work Phone: [facility] [employer] 03-19-2024 15:33-0500 SaO2% (BldA) [Mass fraction] 97 % Daria Smith APRNBiomotiMARKET DEVELOPER Work Phone: [facility] 03-19-2024 15:33-0500 Systolic blood pressure 138 mm[Hg] Daria Smith APRNBiomotiMARKET DEVELOPER Work Phone: [facility] Encounters Encounter Date Encounter Type Care Provider Facility Start: 03-27-2024 End: 03-27-2024 Telephone encounter [employer] [facility] Work Phone: [facility] Start: 03-19-2024 End: 03-19-2024 Patient encounter status Daria GAMEZ Work Phone: [facility] Start: 03-19-2024 End: 03-19-2024 Periodic preventive med est patient 40-64yrs Daria Smith APRNBiomotiMARKET DEVELOPER Work Phone: [facility] Comment on above: Wellness examination (Primary Dx); Type 2 diabetes mellitus without complication, without long-term current use of insulin ([facility]); Essential hypertension; Hepatic steatosis; Acute non-recurrent maxillary sinusitis Start: 03-19-2024 End: 03-19-2024 ambulatory [facility] Start: 03-19-2024 Encounter for genera l adult medical examination without abnormal findings [facility] Start: 03-14-2024 End: 03-14-2024 Refill Evie Owens [facility] Comment on above: Essential hypertensi on; Type 2 diabetes mellitus without complication, without long-term current use of insulin ([facility]) Start: 02-27-2024 End: 02-27-2024 ambulatory [facility] Facility[facility] Start: 10-22-2023 End: 10-24-2023 Refill Ricardo Arteaga MD Work Phone: [facility] Start: 09-07-2023 End: 09-07-2023 Refill Daria Smith APRN-MARKET DEVELOPER Work Phone: [facility] Comment on above: Essential hypertensi on; Type 2 diabetes mellitus without complication, without long-term current use of insulin ([facility] Start: 08-10-2023 End: 08-10-2023 [facility] Start: 08-08-2023 End: 08-08-2023 Orders Only Daria Smith APRN-MARKET DEVELOPER Work Phone: 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 Comment on above: Type 2 diabetes ayesha itus without complication, without long- term current use of insulin ([facility] Start: 05-12-2022 End: 05-12-[address] [facility] Facility: Procedures Date Procedure Procedure Detail Performing Clinician Start: 02-24-2021 Adult depression screening assessment Ricardo Arteaga MD Work Phone: Plan of Treatment Date Care Activity Detail Author Start: 10-29-2030 DTaP,Tdap and Td Vaccines (3 - Td or Tdap) DTaP,Tdap and Td Vaccines (3 - Td or Tdap) [facility] Start: 03-19-2025 Adult BMI Follow Up Plan Adult BMI Follow Up Plan [facility] Start: 03-19-2025 Adult BMI Screening Adult BMI Screen ing [facility] Start: 03-19-2025 Tobacco Screening Tobacco Screening [facility] Start: 08-09-2024 Adult BMI Screening Adult BMI Screen ing [facility] Start: 08-09-2024 Tobacco Screening Tobacco Screening [facility] Start: 08-07-2024 Adult BMI Screening Adult BMI Screen ing [facility] Start: 08-07-2024 Tobacco Screening Tobacco Screening [facility] Start: 05-30-2024 End: 05-30-2024 Patient encounter procedure 05/30/2024 10:15 AM EST Office Visit [facility] [address] [place] [address] Tosha Wooten, NOUGAT CUTTER MACHINE-MARKET DEVELOPER [address], [address] [place] [id number] [facility] Start: 04-27-2024 End: 04-27-2024 Patient encounter procedure 04/27/2024 9:30 AM EST Office Visit [address] [place] [address] Gricel Chu MD [address] [place] [address] [facility] Start: 04-25-2024 End: 04-25-2024 Clinical Support 04/25/2024 11:00 AM EST Clinical Support [facility] [address] [place] [address] [facility] Start: 04-19-2024 End: 04-19-2024 Patient encounter procedure 04/19/2024 8:30 AM EST Office Visit [facility] [address] [place] [id number] Daria Smith, NOUGAT CUTTER MACHINE-MARKET DEVELOPER [address] [place] [address] [facility] Start: 03-19-2024 End: 03-19-2024 Patient encounter procedure 03/19/2024 3:30 PM EST Office Visit [facility] [address] [place] [address] Daria Smith, NOUGAT CUTTER MACHINE-MARKET DEVELOPER [address] [place] [address] [facility] Start: 03-19-2024 End: 03-19-2025 CBC W Auto Differential panel - Blood CBC auto differential Lab Routine Wellness examination Expected: 03/19/2024, Expires: 03/19/2025 [employer] Work Phone: Comment on above: Expected: 03/19/2024 , Expires: 03/19/2025 Start: 03-19-2024 End: 03-19-2025 Hemoglobin A1c/Hemoglobin.total in Blood Hemoglobin A1c Lab Routine Type 2 diabetes mellitus without complication, without long-term current use of insulin ([facility]) Expected: 03/19/2024, Expires: 03/19/2025 [facility] Comment on above: Expected: 03/19/2024 , Expires: 03/19/2025 Start: 03-19-2024 End: 03-19-2025 Lipid 1996 panel - Serum or Plasma Lipid profile Lab Routine Wellness examination Expected: 03/19/2024, Expires: 03/19/2025 [employer] Comment on above: Expected: 03/19/2024 , Expires: 03/19/2025 Start: 03-19-2024 End: 03-19-2025 Microalbumin - Albumin: Creatinine Urine Ratio Microalbumin - Albumin: Creatinine Urine Ratio Lab Routine Type 2 diabetes mellitus without complication, without long-term current use of insulin ([facility]) Expected: 03/19/2024, Expires: 03/19/2025 [facility] Comment on above: Expected: 03/19/2024 , Expires: 03/19/2025 Start: 03-19-2024 End: 03-19-2025 Thyroid profile includes TSH FT4 Thyroid profile includes TSH FT4 Lab Routine Type 2 diabetes mellitus without complication, without long-term current use of insulin ([facility]-HCC) Expected: 03/19/2024, Expires: 03/19/2025 [facility] Comment on above: Expected: 03/19/2024 , Expires: 03/19/2025 Start: 03-17-2024 Adult BMI Follow Up Plan Adult BMI Follow Up Plan [facility] Start: 12-18-2023 COVID-19 Vaccine ( season) COVID-19 Vaccine () [facility] Start: 12-18-2023 Influenza vaccination Influenza Vacc ine [facility] Start: 12-02-2023 Adult BMI Screening Adult BMI Screen ing [facility] Start: 12-02-2023 Tobacco Screening Tobacco Screening [facility] Start: 12-17-2022 COVID-19 Vaccine ( season) COVID-19 Vaccine ( season) [facility] Start: 12-17-2022 Influenza vaccination Influenza Vacc ine [facility] Start: 02-24-2022 Depression Screening Depression Scre ening [facility] Start: 02-24-2022 Diabetic foot examination Diabetic Foot Exam [facility] Start: 02-24-1996 Diabetic foot examination Diabetic Foot Exam [facility] Start: 1990 Depression Screening Depression Scre [facility] Start: 1978 Glaucoma screening Diabetic Op hthalmology Exam [facility] End: 03-19-2025 Comprehensive metabolic 2000 panel - Serum or Plasma Comprehensive metabolic panel Lab Routine Wellness examination 1 Occurrences starting 03/19/2024 until 03/19/2025 [facility] Comment on above: 1 Occurrences starti ng 03/19/2024 until 03/19/2025 Immunizations Immunization Date Immunization Notes Care Provider Fa cili 10-29-2020 diphtheria, tetanus toxoids and pertussis vaccine Ricardo Arteaga MD Work Phone: [facility] 09-30-2020 COVID-19, mRNA, LNP- S, PF, 30mcg/0.3mL Dose Ricardo Arteaga MD Work Phone: [facility] 09-09-2020 COVID-19, mRNA, LNP- S, PF, 30mcg/0.3mL Dose Ricardo Arteaga MD Work Phone: [facility] 04-12-2018 influenza, injectabl e, quadrivalent, preservative free Ricardo Arteaga MD Work Phone: [facility] 04-12-2018 pneumococcal polysaccharide vaccine, 23 valent Ricardo Arteaga MD Work Phone: [facility] 04-12-2018 influenza virus vacc ine, unspecified formulation Ricardo Arteaga MD Work Phone: [facility] 03-07-2017 tetanus toxoid, redu tamela diphtheria toxoid, and acellular pertussis vaccine, adsorbed Ricardo Arteaga MD Work Phone: [facility] Payers Date Payer Category Payer Medicaid [id number] 2022 Medicaid [id number] 1980 Unknown [id number] 1978 Unknown [id number] 1978 Unknown [id number] 1978 Unknown [id number] 1978 Unknown [id number] 1959 Unknown [id number] Social History Date Type Detail Facility Start: 05-18-2022 Tobacco smoking status NHIS Never smoked tobacco [facility] Start: 05-18-2022 Tobacco use and exposure Smokeless tobacco non-user [facility] Start: 08-08-2023 End: 03-19-2024 Alcoholic beverage intake Current drinker of alcohol (finding) [facility] Start: 02-26-2019 End: 05-08-2020 History of Social function [facility] Start: 02-26-2019 End: 05-08-2020 Social connection and isolation panel [facility] Frequency of Communication with Friends and Family Never [facility] How often to you hav e a drink containing alcohol? Never [facility] How hard is it for y ou to pay for the very basics like food, housing, medical care, and heating Not very hard [facility] Do you feel stress - tense, restless, nervous, or anxious, or unable to sleep at night because your mind is troubled all the time - these days [OSQ] Very much [facility] Start: 02-26-2019 Education 10 [facility] Start: 08-08-2023 Alcohol Comment 6-8 24oz of beer a day [facility] Start: 1980 Sex assigned at Male [facility] Start: 04-05-2018 Gender identity Identifies as male gender (finding) [facility] Start: 04-05-2018 Sexual orientation Heterosexual (finding) [facility] Start: 12-01-2022 Alcohol intake Ex-drinker (finding) [facility] Start: 11-21-2014 Sex Male (finding) [facility] Medical Equipment Procedure Code Equipment Code Equipment Origin al Text Equipment Identifier Dates [id number] Start: 07-15-2023 End: 03-19-2024 Test 2 x day [id number] Start: 04-01-2020 End: 03-19-2024 use 1 LANCET to TEST BLOOD SUGAR once daily [id number] Start: 07-15-2023 use 1 TEST STRIP to TEST BLOOD SUGAR once daily [id number] Start: 10-25-2022 End: 07-14-2023 use 1 LANCET to TEST BLOOD SUGAR once daily [id number] Start: 07-22-2022 End: 07-14-2023 Use to test daily [id number] Start: 03-19-2024 use 1 LANCET to TEST BLOOD SUGAR once daily [id number] Start: 03-19-2024 Clinical Notes 07-14-2023 to 03-27-2024 Telephone Encounter - Garcia Canela - 03/27/2024 2:06 PM ESTTelephone Encounter - Dinorah Blancas - 03/27/2024 2:06 PM ESTTelephone Encounter - Garcia Canela - 03/27/2024 2:06 PM EST Note Date & Type Note Facility 03-27-2024 Miscellaneous Notes [facility] MEDICATION [facility]ERAP[facility] [address] [facility] [address] New referral received by [facility] for diabetes. Patient was contacted to schedule appointment at [facility] ([facility] This was my first attempt to reach the patient and patient was scheduled for an appointment on 04/25/24 at 11am. Patient will be asked to bring [facility] Additional Info: Medication List, Blood Glucose Meter, and Blood Sugar Log. Referring provider: FRANCO Mathews Noted. Referral added to spreadsheet. documented in this encounter [facility] 03-27-2024 Telephone encounter Note [facility] [address] [facility] [address] New referral received by [facility] for diabetes. Patient was contacted to schedule appointment at [facility] ([facility]). This was my first attempt to reach the patient and patient was scheduled for an appointment on 04/25/24 at 11am. Patient will be asked to bring [facility] Additional Info: Medication List, Blood Glucose Meter, and Blood Sugar Log. Referring provider: FRANCO Mathews [facility] 03-27-2024 Telephone encounter Note Noted. Referral added to spreadsheet. [facility] 03-19-2024 History of Presen t illness Narrative Images from the original note were not included. [address] [place] [address] Subjective: Maciel Mohamud is a 44 y.o. male who presents for an Annual Wellness exam. Patient presents to the office for routine wellness. He has been drinking again and is seven days sober. We have not seen him in the office for a year. He is only taking his blood pressure medications and some of his diabetic medications. He was in rehab in the past. And He has taken the shots in the past for alcohol addiction and had hives. We talked at length about [facility] for medication again. Information given. He is also having cold symptoms. He is due for all lab work, and to get back to diabetes management. We also talked at length about liver and hepatic steatosis and we placed referral in 2022 but he did not make it. Will place referral again. Annual Exam Associated symptoms include congestion and coughing. Pertinent negatives include no abdominal pain, arthralgias, chest pain, fatigue, fever, joint swelling, nausea, neck pain, numbness, rash, sore throat, vomiting or weakness. The following portions of the patient's history were reviewed and updated as appropriate: medications, allergies, past medical history, past surgical history, social history, family history and immunization history Vitals: Vitals: 03/19/24 1533 BP: 138/84 Pulse: 86 Resp: 18 SpO2: 97% Weight: 107.5 kg (237 lb) Height: 165.1 cm (5' 5 ) History: Patient Active Problem List Diagnosis Date Noted Alcohol abuse 09/22/2018 Type 2 diabetes mellitus without complication, without long-term current use of insulin ([facility] 03/22/2018 Palpitation 03/22/2018 RBBB 03/22/2018 Mixed hyperlipidemia 03/22/2018 Essential hypertension 03/22/2018 Generalized anxiety disorder with panic attacks 03/22/2018 Renal cyst 03/22/2018 Marijuana use Past Medical History: Diagnosis Date Alcoholism /alcohol abuse Anxiety 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 Hyperlipidemia Hypertension Marijuana use Panic attack Wears glasses Past Surgical History: Procedure Laterality Date CHOLECYSTECTOMY KNEE ARTHROSCOPY Right football injury as teenager / details limited Family History Problem Relation Age of Onset Diabetes Mother Diabetes Father CABG age 55 ETOH Diabetes Brother Alcohol abuse Other Social History Tobacco Use Smoking status: Never Smokeless tobacco: Never Substance Use Topics Alcohol use: Yes Comment: 6-8 24oz of beer a day Allergies: Allergies Allergen Reactions Penicillins Immunization History Administered Date(s) Administered COVID-19, mRNA, LNP-S, PF, 30mcg/0.3mL Dose 09/09/2020, 09/30/2020 DTP 10/29/2020 Influenza, Injectable, quadrivalent (PF) 04/12/2018 Pneumococcal Polysaccharide 04/12/2018 Tdap 03/07/2017 Review of Systems: Review of Systems Constitutional: Negative for fatigue, fever and unexpected weight change. HENT: Positive for congestion, sinus pressure and sinus pain. Negative for ear pain and sore throat. Eyes: Negative for photophobia, pain, discharge and visual disturbance. Respiratory: Positive for cough. Negative for shortness of breath. Cardiovascular: Negative for chest pain, palpitations and leg swelling. Gastrointestinal: Negative for abdominal pain, diarrhea, nausea and vomiting. Endocrine: Negative for polydipsia, polyphagia and polyuria. Genitourinary: Negative for difficulty urinating, frequency, hematuria and urgency. Musculoskeletal: Negative for arthralgias, gait problem, joint swelling and neck pain. Skin: Negative for pallor and rash. Neurological: Negative for dizziness, weakness, light-headedness and numbness. Psychiatric/Behavioral: Negative for sleep disturbance. The patient is not nervous/anxious. Objective: BP 138/84 Pulse 86 Resp 18 Ht 165.1 cm (5' 5 ) Wt 107.5 kg (237 lb) SpO2 97% BMI 39.44 kg/m Physical Exam Constitutional: Appearance: He is well-developed. HENT: Head: Normocephalic and atraumatic. Right Ear: Tympanic membrane, ear canal and external ear normal. Left Ear: Tympanic membrane, ear canal and external ear normal. Nose: Congestion present. Eyes: Conjunctiva/sclera: Conjunctivae normal. Pupils: Pupils are equal, round, and reactive to light. Cardiovascular: Rate and Rhythm: Normal rate and regular rhythm. Heart sounds: Normal heart sounds. Pulmonary: Effort: Pulmonary effort is normal. Breath sounds: Normal breath sounds. Musculoskeletal: Cervical back: Normal range of motion. Skin: General: Skin is warm and dry. Neurological: Mental Status: He is alert and oriented to person, place, and time. Psychiatric: Mood and Affect: Mood normal. Assessment/Plan: Maciel was seen today for annual exam. Diagnoses and all orders for this visit: Wellness examination - CBC auto differential; Future - Comprehensive metabolic panel; Future - Lipid profile; Future Type 2 diabetes mellitus without complication, without long-term current use of insulin ([facility]) - blood sugar diagnostic (ONETOUCH ULTRA TEST) strip; use 1 TEST STRIP to TEST BLOOD SUGAR once daily - blood-glucose meter misc; One unit / make sure covered by insurance - lancets (freestyle) 28 gauge misc; Use to test daily - lancets (ONETOUCH DELICA PLUS LANCET) 33 gauge misc; use 1 LANCET to TEST BLOOD SUGAR once daily - metFORMIN (GLUCOPHAGE) 1000 mg tablet; take 1 tablet by mouth twice a day for diabetes - Thyroid profile includes TSH FT4; Future - Hemoglobin A1c; Future - Microalbumin - Albumin: Creatinine Urine Ratio; Future - [facility]; Future Essential hypertension - amLODIPine (NORVASC) 5 mg tablet; Take 1 tablet (5 mg total) by mouth in the morning. - lisinopriL (PRINIVIL,ZESTRIL) 20 mg tablet; Take 1 tablet (20 mg total) by mouth in the morning and 1 tablet (20 mg total) before bedtime. Hepatic steatosis - [facility]; Future Other orders - glimepiride (AMARYL) 2 mg tablet; Take 1 tablet (2 mg total) by mouth in the morning and 1 tablet (2 mg total) before bedtime. - pravastatin (PRAVACHOL) 20 mg tablet; Take 1 tablet (20 mg total) by mouth in the morning. Plan Outpatient Medications Prior to Visit Medication Sig Dispense Refill aspirin 81 mg Take 1 tablet (81 mg total) by mouth in the morning. 30 tablet 11 amLODIPine (NORVASC) 5 mg tablet Take 1 tablet (5 mg total) by mouth in the morning. 30 tablet 0 blood sugar diagnostic (ONETOUCH ULTRA TEST) strip use 1 TEST STRIP to TEST BLOOD SUGAR once daily 100 strip 0 blood-glucose meter [facility] One unit / make sure covered by insurance 1 each 0 glimepiride (AMARYL) 2 mg tablet Take 1 tablet (2 mg total) by mouth in the morning and 1 tablet (2 mg total) before bedtime. 60 tablet 0 lancets (freestyle) 28 gauge [facility] Test 2 x day 180 each 1 lancets (ONETOUCH DELICA PLUS LANCET) 33 gauge [facility] use 1 LANCET to TEST BLOOD SUGAR once daily 100 each 0 lisinopriL (PRINIVIL,ZESTRIL) 20 mg tablet Take 1 tablet (20 mg total) by mouth in the morning and 1 tablet (20 mg total) before bedtime. 60 tablet 0 metFORMIN (GLUCOPHAGE) 1000 mg tablet take 1 tablet by mouth twice a day for diabetes 60 tablet 0 pravastatin (PRAVACHOL) 20 mg tablet Take 1 tablet (20 mg total) by mouth in the morning. 30 tablet 0 No facility-administered medications prior to visit. Follow Up: Cbc,cmp,lipid, hemoglobin A1c, micro albumin,thyroid, -will call with results Referral diabetes management, gastroenterology ADA diet Refilled medications He is going to [facility]-sobriety Keep going to meetings Follow up in one month Patient noted to have elevated BMI and the following intervention(s) were applied: encouragement to exercise. FRANCO Mathews 03/19/24 1602 documented in this encounter [facility] 08-08-2023 Miscellaneous Notes Patient was in the ER this weekend for alcohol withdrawal. He is going to rehab on 08/09 in [place]. He is wanting to know if he can have more Ativan to keep him calm until he goes into rehab so he doesn't drink Sent 4 tabs, one twice a day until Tuesday documented in this encounter [facility] 08-08-2023 Telephone encounter Note Patient was in the ER this weekend for alcohol withdrawal. He is going to rehab on 08/09 in [place]. He is wanting to know if he can have more Ativan to keep him calm until he goes into rehab so he doesn't drink [facility] 08-08-2023 Telephone encounter Note Sent 4 tabs, one twice a day until Tuesday [facility] 07-14-2023 Miscellaneous Notes [facility] requesting refill of Amlodipine documented in this encounter [facility] 07-14-2023 Miscellaneous Notes [facility] requesting refill of Test Strips, Lancets, Glucometer documented in this encounter [facility] 07-14-2023 Telephone encounter Note [facility] requesting refill of Amlodipine [facility] 07-14-2023 Telephone encounter Note [facility] requesting refill of Test Strips, Lancets, Glucometer [facility] System Evaluation note Diagnosis Alcohol withdrawal syndrome without complication ([facility] Primary documented in this encounter [facility]* Diagnosis Essential hypertension Unspecified essential hypertension Type 2 diabetes mellitus without complication, without long-term current use of insulin (CMS-HCC) documented in this encounter [facility]* Diagnosis Type 2 diabetes mellitus without complication, without long-term current use of insulin ([facility]) documented in this encounter [facility]* Diagnosis Essential hypertension Unspecified essential hypertension Type 2 diabetes mellitus without complication, without long-term current use of insulin ([facility]) documented in this encounter [facility]* Diagnosis Wellness examination- Primary Type 2 diabetes mellitus without complication, without long-term current use of insulin ([facility]) Essential hypertension Unspecified essential hypertension Hepatic steatosis Other chronic nonalcoholic liver disease Acute non-recurrent maxillary sinusitis documented [facility] this encounter [facility] System[facility]ructionsNot on filedocumented in this encounter [facility] SystemInstructionsNot on filedocumented in this encounter [facility] on filedocumented in this encounter [facility] System[facility]ructionsNot on filedocumented in this encounter [facility]* Attachments The following attachments cannot be sent through Care Everywhere. * Diabetes and diet ([place]) [facility] Purpose Family History No Family History Records FoundNo Family History Records FoundNo Family History Records FoundNo Family History Records FoundNo Family History Records Found Advance Directives No Advanced Directives Records FoundNo Advanced Directives Records FoundNo Advanced Directives Records FoundNo Advanced Directives Records FoundNo Advanced Directives Records Found Additional Source Comments (unrecognized sect ion and content) No Status Records FoundNo Status Records FoundNo Status Records FoundNo Status Records FoundNo Status Records Found INFORMATION SOURCE (unrecogn ized section and content) DATE CREATED AUTHOR 03/31/2019 [facility] DATE CREATED AUTHOR AUTHOR'S ORGANIZ ATION 05/17/2022 [facility] DATE CREATED AUTHOR AUTHOR'S ORGANIZ ATION 08/11/2023 [facility] DATE CREATED AUTHOR AUTHOR'S ORGANIZ ATION 02/29/2024 [facility] [place] [facility] DATE CREATED AUTHOR AUTHOR'S ORGANIZ ATION 03/21/2024 [facility] Care Teams (unrecognized sec tion and content) Comprehensive Ophthalmologist Relationship Specialty Start Date End Date Daria Smith APRN-MARKET DEVELOPER [address] [place] [address] PCP - General Family Medicine 10/24/19 Comprehensive Ophthalmologist Relationship Specialty Start Date End Date Daria Smith APRN-MARKET DEVELOPER [address] [place] [address] PCP - General Family Medicine 10/24/19 Comprehensive Ophthalmologist Relationship Specialty Start Date End Date Daria Smith APRN-MARKET DEVELOPER [address] [place] [address] PCP - General Family Medicine 10/24/19 Comprehensive Ophthalmologist Relationship Specialty Start Date End Date Daria Smith APRN-MARKET DEVELOPER [address] [place] [address] PCP - General Family Medicine 10/24/19 Comprehensive Ophthalmologist Relationship Specialty Start Date End Date Daria Smith APRN-MARKET DEVELOPER [address] [place] [address] PCP - General Family Medicine 10/24/19 Comprehensive Ophthalmologist Relationship Specialty Start Date End Date Daria Smith APRN-MARKET DEVELOPER [address] [facility] [place] [address] PCP - General Family Medicine 10/24/19 Reason for Visit (unrecogniz ed section and content) Reason Onset Date Comments Med Refill 09/07/2023 Reason Onset Date Comments Med Refill 10/22/2023 Reason Onset Date Comments Med Refill 07/14/2023 Reason Onset Date Comments Med Refill 03/14/2024 Reason Comments Annual Exam FOR RECORDS PERTAINING TO PATIENTS WHO ARE [...] BE BASED ON THE PRIMARY CLINICAL RECORDS. [facility] provides no warranty or guarantee of the accuracy or completeness of information in this document.
--- NOTE | 2024-09-01 11:02 | ED.ANXIETY1 ---
HPI - Anxiety General Chief Complaint: Upper Respiratory Infection Stated Complaint: COUGH, GROIN PAIN, CHEST CONGESTION Time Seen by Provider: 09/01/24 10:50 Source: patient Mode of arrival: walk-in History of Present Illness HPI narrative: The patient is a 44-year-old male is coming to the ER with 2 weeks cough that started after he was recently having a viral infection, he mentioned that he continues to have the cough he does not smoke any cigarette, but he smokes weeds The patient denies any other complaints of fever chills or any difficulty breathing but he have a continuous cough and this causing some groin pain sometime when he is coughing he does not have any continuous pain No bulging no nausea no vomiting Related Data Home Medications ?Medication ?Instructions ?Recorded ?Confirmed amlodipine 5 mg tablet 5 mg PO DAILY 09/18/22 09/01/24 glimepiride 2 mg tablet 2 mg PO BID 09/18/22 09/01/24 lisinopril 20 mg tablet 40 mg PO DAILY 09/18/22 09/01/24 metformin 1,000 mg tablet 1,000 mg PO BID 09/18/22 09/01/24 pravastatin 20 mg tablet 20 mg PO DAILY 09/18/22 09/01/24 Previous Rx's ?Medication ?Instructions ?Recorded lorazepam 1 mg tablet (Ativan) 1 mg PO Q8H PRN alcohol withdrawal 04/23/24 7 days #20 tabs ondansetron 4 mg disintegrating 4 mg PO Q6H PRN nausea and 07/12/24 tablet vomiting #20 tabs doxycycline hyclate 100 mg capsule 100 mg PO BID 7 days #14 caps 09/01/24 guaifenesin 600 mg tablet, 600 mg PO Q12H PRN cough #10 tabs 09/01/24 extended release 12 hr (Mucinex) Allergies Allergy/AdvReac Type Severity Reaction Status Date / Time Penicillins AdvReac Severe Palpitation Verified 04/23/24 10:11 s Review of Systems ROS Status of ROS 10 or more systems reviewed and unremarkable except as noted in history and below PFSH PFSH Social History Smoking status: Current every day smoker Little interest or pleasure in doing things: not at all Feeling down, depressed, or hopeless: not at all Exam Narrative Exam Narrative: Nurses notes and vital signs reviewed and patient is not hypoxic. General: Well-appearing and in no apparent distress. Skin: Warm, dry, no pallor noted. No rash. Head: Normocephalic, atraumatic. Neck: Supple, non-tender. Eye: Pupils are equal, round and EOMI. No scleral icterus. Ears, Nose, Mouth, and Throat: TM are clear, no nasal mucosal hypertrophy. Oral mucosa is moist, no posterior oropharynx erythema, uvula is mid-line Cardiovascular: Regular Rate and Rhythm without murmur, gallop or rub. Respiratory: No accessory muscle use or respiratory distress. Lungs are clear to auscultation, no wheezing, rales or rhonchi Chest Wall: no tenderness Back: No midline thoracic or lumbar vertebral tenderness. No CVA tenderness Musculoskeletal: normal ROM, no calf or popliteal tenderness, no lower extremity edema/swelling GI: Abdomen is soft, non-distended. Normal bowel sounds. No masses appreciated. No tenderness to palpation. No rebound, guarding, or rigidity noted. Abdominal examination showed that the patient have no inguinal hernia Neurological: A&O x4. No cranial nerve dysfunction observed. No truncal ataxia. Moves all extremities. Sensation intact. Psychiatric: Cooperative and interactive. Normal mood and affect. Constitutional Vital Signs, click to edit/add: Last Vital Signs Temp 98.7 F 09/01/24 10:51 Pulse 106 H 09/01/24 10:51 Resp 20 09/01/24 10:51 BP 164/100 H 09/01/24 10:51 Pulse Ox 96 09/01/24 10:51 Course Vital Signs Vital signs: Vital Signs Temperature 98.7 F 09/01/24 10:51 Pulse Rate 106 H 09/01/24 10:51 Respiratory Rate 09/01/24 10:51 Blood Pressure 164/100 H 09/01/24 10:51 Pulse Oximetry 96 09/01/24 10:51 Temperature 98.7 F 09/01/24 10:51 Pulse Rate 106 H 09/01/24 10:51 Respiratory Rate 09/01/24 10:51 Blood Pressure 164/100 H 09/01/24 10:51 Pulse Oximetry 96 09/01/24 10:51 MDM - Anxiety MDM Narrative Medical decision making narrative: The patient definitely have laryngitis specially with his change in voice and mention to the cough that been going on for 2 weeks, I did Prescribe him doxycycline to cover for possible bacterial infection double viral in addition to Mucinex The patient is to follow up with primary care physician in next 2-3 days or to return to the emergency department should any of the signs or symptoms worsen or new symptoms develop. The patient agrees with the following Diagnosis and Treatment plan and the patient will be discharged home. Discharge Plan Discharge Chief Complaint: Upper Respiratory Infection Clinical Impression: Laryngitis Patient Disposition: Home, Self-Care Time of Disposition Decision: 11:02 Condition: Good Prescriptions / Home Meds: New doxycycline hyclate 100 mg capsule 100 mg PO BID 7 Days Qty: 14 0RF guaifenesin [Mucinex] 600 mg tablet extended release 12hr 600 mg PO Q12H PRN (Reason: cough) Qty: 10 0RF No Action amlodipine 5 mg tablet 5 mg PO DAILY glimepiride 2 mg tablet 2 mg PO BID lisinopril 20 mg tablet 40 mg PO DAILY metformin 1,000 mg tablet 1,000 mg PO BID pravastatin 20 mg tablet 20 mg PO DAILY ondansetron 4 mg tablet,disintegrating 4 mg PO Q6H PRN (Reason: nausea and vomiting) Qty: 20 0RF lorazepam [Ativan] 1 mg tablet 1 mg PO Q8H PRN (Reason: alcohol withdrawal) 7 Days Qty: 20 0RF Print Language: Iraqi Instructions: Laryngitis (ED) Referrals: Francisca Smith NP [Primary Care Provider] - 1 week
[2024-09-01 11:03] VITALS: BMI 37.8
[2024-09-01 11:09] VITALS: BP 156/95
== END 2024-09-01 11:11 | disposition home or self-care (01) ==
PROVIDERS: Emergency Provider Emergency Medicine; PCP Nurse Practitioner Family
DX: J04.0 Acute laryngitis (principal)
CPT/HCPCS: 99283

== ENCOUNTER 2025-03-29 17:56 | Emergency (ER) | payer MEDICAID, SELFPAY ==
--- OUTSIDE RECORDS SUMMARY | 2022-10-11 06:15 | XMS_ITS | Continuity of Care Document ---
Author Organization [facility] Address [address] [place] [address] Phone Care Team Providers Care Market Editor Name Role Phone Vasyl Martínez DMD Unavailable Unavailable Allergies, Adverse Reactions, Alerts Substance Reaction Status Criticality No Known Allergies Active No Inform ation Medications Medication Instructions Dosage Effective Dates (start - stop) Status Comments lisinopril 40 mg tablet take 1 tablet by oral route every day 40 MG - Active amlodipine 5 mg tablet take 1 tablet by oral route every day 5 MG - Active glipizide ER 5 mg tablet, extended release 24 hr take 1 tablet by oral route every day with breakfast 5 MG - Active metformin 1,000 mg tablet take 1 tablet by oral route 2 times every day with morning and evening meals 1000 MG - Active buspirone 5 mg tablet take 1 tablet by oral route 2 times every day 5 MG - Active Procedures Procedure Date Nutrit Couns For Control Of [place] Dis Sep Limited Oral Eval Extract; Erupted Th/exposted [address] Advance Directives Directive Yes / No Effective Date File Name No Information Encounters Encounter Description Practice Location Reason(s) For Visit Diagnoses Date Provider Providers Copied on Encounter [facility], [address] [place] [address], [id number], tel:[phone] Dental Clinic ER (chief complaint) Encounter for screening for dental disorders Tanya Fallon. [address] [place] [address], [id number], . tel:[phone] Family History Family Member Type Diagnosis Age At Onset No Information Payers Payer name Insurance type Covered republican ID Mahad scott(s) D Medicaid [facility] [id number] Social History Type Description Quantity Date Captured Comments Alcohol Use Details Unknown Caffeine Use Details Unknown Tobacco Use Status Ex-cigarette smoker Smoking Status Former smoker Smoking Tobacco Use Details Cigarette: Age Started: 12, Age Stopped: 17, Years Used 5 Cigarette: 0.5 Packs per day, Pack Year: 2.5 [id number] SexMaleSexual OrientationDon't KnowGender IdentityMale Vital Signs Date / Time: Height Weight BMI Pulse Rate Blood Pressure Temperature Respiratory Rate Body Surface Area Head Circumference Head Circ. Percentile Wt./Jorge Luis. Percentile BMI percentile Pulse Ox Inhaled Ox 11:15 AM 81 /min 168/90 mm[Hg] 98.50 F Chief Complaint And Reason For Visit From encounter dated '10/11/2022 11:15'. ER (chief complaint) Reason For Referral Reason For Referral No Information Plan Of Treatment Date Type Action Status Goal Tdap Vaccine. Due on 2022 due Goal RLP. Due on due Goal Tdap. Due on due Goal Depression screening. Due on due Goal Influenza vaccine. Due on due Goal Lipid panel. Due on due Goal PRAPARE ASSESSMENT. Due on J due History Of Present Illness Encounter Date Complaint History Of Prese nt Illness ER Functional Status Date Functional Assessmen t No Information Instructions Date Instruction Additional Infor mation No Information Assessments Type Assessment Date No Information Patient Care Teams Name Effective Dates (start - stop) Status Members No Information
--- OUTSIDE RECORDS SUMMARY | 2024-04-27 03:30 | XMS_ITS ---
Author Organization [facility] vices Address [address] [place] [id number] Care Team Providers Care [employer] Name Role Phone Varun Mclaughlin Unavailable [phone] REASON FOR VISIT NETWORK [facility] Social History Sex Assigned At : Social History Observation Description Sex Assigned At Male Encounters Encounter Location Date Provider Diagnosis Main [address] [place] [id number] 04/27/2024 Varun Mclaughlin Plan Of Treatment No Information Progress Notes * Vish MOHAMUDDOB:11/1979 (45 yo M)Acc No.[id number]:04/27/2024 Medical Note Patient: Olivia anne Vish Teresa :?Varun UrbandDOB:1980???Age:44 Y???Sex:Male Date:04/27/2024Phone:[phone]:[address] [place] [id number] Subjective: * Chief Complaints: * N P Wellness * Electronic signature of MI Thomas on 03/29/2025 at 08:09 PM ESTSign off status: Pending * Provider: Danielle Mclaughlin Date: 0 04/27/2024 Generated for Printing/Faxing/eTransmitting on:?03/29/2025 08:09 PM EST
[2025-03-29 18:00] VITALS: BP 186/99; PULSE 83; TEMP 37.1; O2SAT 98; BMI 38.3
--- NOTE | 2025-03-29 19:15 | XR_ITS ---
The [place] [id number] Patient Name: MACIEL MCGREGOR MRN: [id number] date: 1980 Sex: M Assigned Patient Location: ED.MAIN Current Patient Location: ED.MAIN Accession/Order Number: [id number] Exam Date: 03/29/2025 19:30 Report Date: 03/29/2025 20:08 At the request of: RIA CORNELIUS DO Procedure: XR forearm RT 2V 2 views of the right forearm CLINICAL HISTORY: pain, inability to move COMPARISON: None FINDINGS: Negative for fracture-dislocation. Soft tissues unremarkable. Joint spaces are grossly preserved. XR/XR forearm RT 2V IMPRESSION: NO ACUTE OSSEOUS FINDINGS. Impression dictated by: Tobi Us M.D. 03/29/2025 8:08 PM Dictation Location: [place] [address] Electronically authenticated by: [id number] Y Date: 03/29/2025 20:08
--- NOTE | 2025-03-29 19:15 | XR_ITS ---
The [address] [address] Patient Name: MACIEL MCGREGOR MRN: [id number] date: 1980 Sex: M Assigned Patient Location: ED.MAIN Current Patient Location: ED.MAIN Accession/Order Number: [id number] Exam Date: 03/29/2025 19:30 Report Date: 03/29/2025 20:08 At the request of: RIA CORNELIUS DO Procedure: XR wrist RT min 3V 3 views right wrist CLINICAL HISTORY: pain, decreased movement COMPARISON: None FINDINGS: No fracture or dislocation. Joint spaces preserved. Soft tissues unremarkable. XR/XR wrist RT min 3V IMPRESSION: NO ACUTE OSSEOUS FINDINGS. Impression dictated by: Tobi Us M.D. 03/29/2025 8:08 PM Dictation Location: [place] [address] Electronically authenticated by: [id number] Y Date: 03/29/2025 20:08
[2025-03-29 19:58] VITALS: BP 162/98; PULSE 84; O2SAT 98
--- OUTSIDE RECORDS SUMMARY | 2025-03-29 20:09 | XMS_ITS | CCD ---
Author Organization [facility] Care Team Providers Care It Instructor Name Role Phone DR ADDIE STARK Primary Care Unavailable DILIP JAEGER Admitting Unavailable DILIP JAEGER Consulting Unavailable DILIP JAEGER Attending Unavailable HORACE SOTO Consulting Unavailable DARIA SMITH Primary Care Unavailable AMARA LAWSON Attending UnavailAMARA Dorman Attending UnavailAMARA Dorman Referring Unavailabl DARIA Guevara Primary Care Unavailable DOMENICO MASON Attending Unavailable DARIA SMITH Primary Care Unavailable DARIA SMITH Attending Unavailable DARIA SMITH Referring Unavailable DARIA SMITH Primary Care Unavailable Schlachter COTTON EXPERT-[employer]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, Daria Primary Care Provide r Schchristopher COTTON EXPERT[facility], Daria Primary Care Provide r Yazan MADRIGAL Attending Unavailable Yazan MADRIGAL Attending Unavailable Allergies Allergy ClassificationReported Allergen(s)Allergy TypeDate of OnsetReaction(s) Facility (1 source)NaltrexoneDrug Ryyeqck76-63-3604Wkz [facility] Repository (13 sources)Penicillins; Translations: [PENICILLINS]Propensity to adverse reactions to drug (disorder)05-55-6584OrcDhtfyi Repository Medications Current Medications MedicationDrug Class(es)DatesSig (Normalized)Sig (Original)amLODIPine 5 mg oral tablet (16 sources)Dihydropyridine Calcium Channel BlockerStart: 10-24-2023 End: 60-47-2690argi 1 tablet by mouth in the morningamLODIPine (NORVASC) 5 mg tablet Indications: Essential hypertension Take 1 tablet (5 mg total) by mouth in the morning. 90 tablet 1 11/14/2024 ActiveStart: 01-21-2023 End: 72-13-0070dvby 1 tablet by mouth in the morningamLODIPine (NORVASC) 5 mg tablet Take 1 tablet (5 mg total) by mouth in the morning. 90 tablet 07/15/2023 10/22/2023 Discontinued (Reorder)aspirin 81 mg delayed release oral tablet (11 sources)Platelet Aggregation Inhibitor, Nonsteroidal Anti-inflammatory Drug Start: 51-76-7269fyjr 1 tablet by mouth in the morningaspirin 81 mg Indications: Type 2 diabetes mellitus without complication, without long-term currentuse of insulin ([facility]) Take 1 tablet (81 mg total) by mouth in the morning. 30 tablet 11 05/19/2022 Activeazithromycin 250 mg oral tablet (1 source)Macrolide AntimicrobialStart: 03-19-2024 End: 67-55-8835ppse 1 tablet by mouth in the morning, then take 2 tablets by mouth once daily, then take 1 tablet by mouth once dailyazithromycin (ZITHROMAX) 250 mg tablet Take 1 tablet (250 mg total) by mouth in the morning for 5 days. Take 2 tablets the first day, then 1 tablet daily for 4 days.. 6 tablet 03/19/2024 03/24/2024 Activeblood-glucose meter misc (13 sources)Start: 11-25-3603exhic-glucose meter misc Indications: Type 2 diabetes mellitus without complication, without long-term current use of insulin ([facility]) One unit / make sure covered by insurance 1 each 03/19/2024 Active Start: 07-15-2023 End: 31-03-6581epxbn-glucose meter misc Indications: Type 2 diabetes mellitus without complication, without long-term current use of insulin ([facility]) One unit / make sure covered by insurance 1 each 07/15/2023 03/19/2024 Discontinued (Reorder)Start: 10-67-9538qmsii-glucose meter misc Indications: Type 2 diabetes mellitus without complication, without long-term current use of insulin ([facility]) One unit / make sure covered by insurance 1 each 07/15/2023 ActiveStart: 44-77-6982oymsz-glucose meter misc Indications: Type 2 diabetes mellitus without complication, without long-term current use of insulin ([facility]) One unit / make sure covered by insurance 1 each 0 07/15/2023 ActiveStart: 04-01-2020 End: 18-04-3056efaqx-glucose meter [facility] Indications: Type 2 diabetes mellitus without complication, without long-term current use of insulin ([facility]) One unit / make sure covered by insurance 1 each 0 04/01/2020 07/14/2023 Discontinued (Reorder)glimepiride 2 mg oral tablet (15 sources)SulfonylureaStart: 07-21-2022 End: 57-53-7661kvmb 1 tablet by mouth in the morning, then take 1 tablet by mouth at bedtimeglimepiride (AMARYL) 2 mg tablet Take 1 tablet (2 mg total) by mouth in the morning and 1 tablet (2mg total) before bedtime. 180 tablet 1 11/14/2024 Activelisinopril 20 mg oral tablet (15 sources)Angiotensin Converting Enzyme InhibitorStart: 03-02-2023 End: 71-67-7605typg 1 tablet by mouth in the morning, then take 1 tablet by mouth at bedtimelisinopriL (PRINIVIL,ZESTRIL) 20 mg tablet Indications: Essential hypertension Take 1 tablet (20 mgtotal) by mouth in the morning and 1 tablet (20 mg total) before bedtime. 180 tablet 1 11/14/2024 ActiveLORazepam 0.5 mg oral tablet (2 sources)BenzodiazepineStart: 08-08-2023 End: 36-96-9658xofw 1 tablet by mouth in the morning, then take 1 tablet by mouth at bedtimeLORazepam (ATIVAN) 0.5 mg tablet Indications: Alcohol withdrawal syndrome without complication ([facility]) Take 1 tablet (0.5 mg total) by mouth in the morning and 1 tablet (0.5 mg total) before bedtime. Do all this for 2 days. 4 tablet 08/08/2023 08/10/2023 ActivemetFORMIN hydrochloride 1000 mg oral tablet (15 sources)BiguanideStart: 03-25-2023 End: 85-99-2714meku 1 tablet by mouth twice daily for diabetes mellitusmetFORMIN (GLUCOPHAGE) 1000 mg tablet Indications: Type 2 diabetes mellitus without complication, without long-term current use of insulin ([facility]) take 1 tablet by mouth twice a day for diabetes 180 tablet 1 11/14/2024 Activepravastatin sodium 20 mg oral tablet (15 sources)HMG-CoA Reductase InhibitorStart: 03-25-2023 End: 71-76-6055troy 1 tablet by mouth in the morningpravastatin (PRAVACHOL) 20 mg tablet Take 1 tablet (20 mg total) by mouth in the morning. 90 tablet1 11/14/2024 Active Problems Active Problems Problem ClassificationProblemDateDocumented DateEpisodic/ChronicAlcohol-related disorders (12 sources)Alcohol withdrawal syndrome; Translations: [Alcohol withdrawal syndrome without complication (CMS-HCC)]Onset: 039881-79-2546Eilnvwx Anxiety disorders (12 sources)Anxiety disorder, unspecified; Translations: [Generalized anxiety disorder]Onset: 721982-95-4638QpaxomwYyhwevs dysrhythmias (1 source)Ventricular premature depolarization; Translations: [VENTRICULR PREMATURE DEPOLARIZATION]Onset: 53-67-3538RoufwzwImrvntujtf disorders (11 sources)Right bundle branch block; Translations: [Unspecified right bundle- branch block]Onset: 167059-09-7015HsmuylwYsxmjhjp mellitus without complication (19 sources)Type 2 diabetes mellitus without complications; Translations: [Type 2 diabetes mellitus without complication]Onset: 087090-31-2737Mouszzh Disorders of lipid metabolism (11 sources)Mixed hyperlipidemia; Translations: [Mixed hyperlipidemia]Onset: 699095-72-3736MkitetwBfhluuwfl hypertension (19 sources)Essential (primary) hypertension; Translations: [Essential hypertension]Onset: 597008-01-3552IjxqdbuGhomu aftercare (1 source)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 director (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) use of 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; Translations: [INTERMEDIATE CURRENT USE OF ASPIRIN]Onset: 07-76-0413LpkznvndCiacu aftercare (1 source)FPC (current) use of oral hypoglycemic drugs; Translations: [WELT SOLE LAYER USE ORAL HYPOGLYCEMIC DX]Onset: 84-41-7042XbbiivewWirob liver diseases (1 source)Fatty (change of) liver, not elsewhere classified; Translations: [Fatty (change of) liver, not elsewhere classified]Onset: 11-08-4665VirhsprEeurx liver diseases (2 sources)Steatosis of liver; Translations: [Fatty (change of) liver, not elsewhere classified]09-36-2684XuapohuBkurz upper respiratory infections (2 sources)Acute maxillary sinusitis, unspecified; Translations: [Acute maxillary sinusitis]Onset: 498902-26-5254RuxqvvtjRwpswvnwq-mtqspsn disorders (11 sources)Marijuana user; Translations: [Cannabis use, unspecified, uncomplicated]51-42-0026TladxegeLdosfodmxjnf (1 source)Alcohol use, unspecified with withdrawal, uncomplicated; Translations: [Alcohol use, unspecified with withdrawal, uncomplicated]Onset: 08-10-2023 Unclassified (1 source)Heart PalpitationsOnset: 29-16-7307Hazbnjpelotv (1 source)BPOnset: 75-89-1724Ynwbpnbswmqa (1 source)Annual ExamOnset: 03-19-2024 Past or Other Problems Problem ClassificationProblemDateDocumented DateEpisodic/ChronicCardiac dysrhythmias (16 sources)Palpitations; Translations: [Tachycardia, unspecified]Onset: 52-03-8993WffjemqfPiqn disorders (11 sources)Mood disordersOnset: Other and unspecified benign neoplasm (11 sources)Dysplastic nevus of skin; Translations: [Melanocytic nevi, unspecified]Onset: 03-22-2018 Resolved: 533033-13-2097DhbfamvjXeeiq diseases of kidney and ureters (11 sources)Cyst of kidney; Translations: [Cyst of kidney, acquired]Onset: 137632-83-7847PuaucygvAkpgq nutritional; endocrine; and metabolic disorders (11 sources)Severe obesity; Translations: [Morbid (severe) obesity due to excess calories]Onset: 03-22-2018 Resolved: 804693-06-3962LpzjgpiFumfeeos codes; unclassified (11 sources)Stopped drinking alcohol; Translations: [Personal history of other specified conditions]Onset: 03-22-2018 Resolved: 831856-09-8243UnrteczgYiofihlbn-kdvdyhq disorders (11 sources)Drug abuse; Translations: [Other psychoactive substance abuse, uncomplicated]Onset: 09-30-2018 Resolved: 280321-11-9817NfsbfayAidjoapgnchx (11 sources)Onset: 03-17-2023 Resolved: Results Test NameValueInterpretationReference RangeFacilityBASIC METABOLIC PANLon 58-11-2088Qljbo gap [Moles/Vol]10 mmol/LNormal5-15[facility] Comment on above:Performed By: #### DICK VILLAFUERTE, 5643-2, 78466-3 #### [facility] ([id number]) [address] [place] [address], [place] [address]Ebnoppq [Mass/Vol]9.1 mg/dLNormal8.5-10.5POhioHealth O'Bleness HospitalComment on above:Performed By: #### DICK VILLAFUERTE, 5643-2, 91312-5 #### [facility] ([id number]) [address] [place] [address], [place] [address]Xibzjngy [Moles/Vol]101 mmol/WPaxwxp50-806ShqEtnmbcUniversity Medical Center Of El PasoComment on above:Performed By: #### DICK VILLAFUERTE, 5643-2, 08676-9 #### [facility] ([id number]) [address] [place] [address], [place] [address]ZA2 [Moles/Vol]25 mmol/CXcgzss47-48ZdyRhlwtoOhioHealth O'Bleness Hospital Comment on above:Performed By: #### DICK VILLAFUERTE, 5643-2, 81523-3 #### [facility] ([id number]) [address] [place] [address], [place] [address]Ooavmcfauc [Mass/Vol]0.74 mg/dLNormal0.70-1.20[facility] HospitalComment on above:Result Comment: METHOD TRACEABLE TO IDMS STANDARD Performed By: #### DICK VILLAFUERTE, 5643-2, 14725-0 #### [facility] ([id number]) [address] [place] [address] 36554nFME (CKD-EPI) NON-RACE DEPENDENT>90Normal>59ProUniversity Medical Center Of El PasoComment on above:Result Comment: Reported eGFR is based on the CKD-EPI 2021 equation that does not use a race coefficient.Performed By: #### DICK VILLAFUERTE, 5643-2, 59334-3 #### [facility] ([id number]) [address] [place] [address]88[address]Caohuks [Mass/Vol]155 mg/gDSwye84-35TsfZbtjjqUniversity Medical Center Of El Paso Comment on above:Performed By: #### DICK VILLAFUERTE, 5643-2, 65876-1 #### [facility] ([id number]) [address] [place] [address] 09395Jpicytkab [Moles/Vol]3.7 mmol/LNormal3.5-5.0ProUniversity Medical Center Of El PasoComment on above:Performed By: #### DICK VILLAFUERTE, 5643-2, 10275-1 #### [facility] ([id number]) [address] [place] [address] 95885Ivfubs [Moles/Vol]136 mmol/CRpucrm978-294JmzVtmbmv [facility]remont HospitalComment on above:Performed By: #### DICK VILLAFUERTE, 5643-2, 20320-6 #### [facility] ([id number]) [address] [place] [address] 10064Incm nitrogen [Mass/Vol]14 mg/dLNormal5-23ProUniversity Medical Center Of El PasoComment on above:Performed By: #### DICK VILLAFUERTE, 5643-2, 85558-9 #### [facility] ([id number]) [address] [place] [address] 30139YJY AND AUTO DIFFon 78-76-1840EWATZBDF BASOPHIL0.1 X10E9/L Normal0.0-0.2ProMedKindred HospitalComment on above:Performed By: #### DICK VILLAFUERTE, 5643-2, 10819-4 #### [facility] ([id number]) [address] [place] [address] 14980MGVKRPOH NEUTROPHIL6.6 X10E9/LNormal1.5-6.6ProUniversity Medical Center Of El PasoComment on above:Performed By: #### DICK VILLAFUERTE, 43-2, 50835-1 #### [facility] ([id number]) [address] [place] [address] 28911Lcttufcgi/100 WBC (Bld)0.6 %NormalBarnesville Hospital Comment on above:Performed By: #### DICK VILLAFUERTE, 2, 67624-9 #### [facility] ([id number]) [address] [place] [address] 81664Icgnmlhkmdj (Bld) [#/Vol]0.2 10*3/uLNormal0.0-0.4ProUniversity Medical Center Of El PasoComment on above:Performed By: #### DICK VILLAFUERTE, 5642-05, 43227-3 #### [facility] ([id number]) [address] [place] [address] 89585Iwrprgaluwa/100 WBC (Bld)1.7 %NormalBarnesville Hospital Comment on above:Performed By: #### DICK VILLAFUERTE, 2, 71078-1 #### [facility] ([id number]) [address] [place] [address] 45381Boewynburvr distribution width (RBC) [Ratio]13.8 %Normal 11.5-15.0Barn[facility]ville HospitalComment on above:Performed By: #### DICK VILLAFUERTE, 5642-2, 31916-2 #### [facility] ([id number]) [address] [place] [address] 78268Aruolnghak (Bld) [Volume fraction]43.1 %Zhiaal29-67BoyOxidjgUniversity Medical Center Of El PasoComment on above:Performed By: #### DICK VILLAFUERTE, 56-2, 70127-2 #### [facility] ([id number]) [address] [place] [address] 52221Wiolaitdnu (Bld) [Mass/Vol]15.2 g/jHRqsxhf27.0-17.0[facility] HospitalComment on above:Performed By: #### DICK VILLAFUERTE, 5643-2, 54496-1 #### [facility] ([id number]) [address] [place] [address] 35009Wrzhxjqhwep (Bld) [#/Vol]2.7 10*3/uLNormal1.0-3.5ProMedica Mercy Hospital BakersfieldComment on above:Performed By: #### DICK VILLAFUERTE, 5643-2, 77546-1 #### [facility] ([id number]) [address] [place] [address] 36278Dlgvhhohpnm/100 WBC (Bld)26.4 %NormalProUniversity Medical Center Of El Paso Comment on above:Performed By: #### DICK VILLAFUERTE, 5643-2, 48822-5 #### [facility] ([id number]) [address] [place] [address] 86185LWQ (RBC) [Entitic mass]34.5 dtTtuq15-75FeaJdbgxkBarnesville HospitalComment on above:Performed By: #### DICK VILLAFUERTE, 5643-2, 02286-9 #### [facility] ([id number]) [address] [place] [address] 21787LIJP (RBC) [Mass/Vol]35.2 g/aWKtaxet61-80SxpWegcayUniversity Medical Center Of El PasoComment on above:Performed By: #### DICK VILLAFUERTE, 5643-2, 52257-1 #### [facility] ([id number]) [address] [place] [address] 04008GTN (RBC) [Entitic vol]98 hLGxcgsb06-938UozCsdjbm [facility] HospitalComment on above:Performed By: #### CBCNarciso, BMP, 5643-2, 69237-4 #### [facility] ([id number]) [address] [place] [address] 68368Hwzunrhoi (Bld) [#/Vol]0.7 10*3/uLNormal0-0.9[facility] HospitalComment on above:Performed By: #### CBCNarciso, BMP, 5643-2, 29251-2 #### [facility] ([id number]) [address] [place] [address] 84053Rtmxejbru/100 WBC (Bld)6.8 %NormalBarnesville Hospital Comment on above:Performed By: #### CHRISTO, DICK, 5643-2, 22552-0 #### [facility] ([id number]) [address] [place] [address] 76091Dlgyysyffqq/100 WBC (Bld)64.5 %NormalBarnesville Hospital Comment on above:Performed By: #### CHRISTO, DICK, 5643-2, 03119-9 #### [facility] ([id number]) [address] [place] [address] 93508Xunpfnot mean volume (Bld) [Entitic vol]9.1 fLNormal7-12 ProMedicTwin Cities Community HospitalComment on above:Performed By: #### CBCNarciso, BMP, 5643-2, 26719-1 #### [facility] ([id number]) [address] [place] [address] 27306Pwisheeaa (Bld) [#/Vol]252 10*3/eNXjligi447-785OeaGxfcup [facility] HospitalComment on above:Performed By: #### CBCNarciso, BMP, 5643-2, 89391-0 #### [facility] ([id number]) [address] [place] [address] 57832LIO COUNT4.40 X10E12/LNormal4.10-5.70[facility] Comment on above:Performed By: #### CHRISTO BMP, 5643-2, 81597-6 #### [facility] ([id number]) [address] [place] [address] 25221ORP (Bld) [#/Vol]10.2 10*3/uLNormal4.0-11.0ProUniversity Medical Center Of El PasoComment on above:Performed By: #### DICK VILLAFUERTE, 5643-2, 85944-1 #### [facility] ([id number]) [address] [place] [address] 95542BBEFYZAvf 23-11-5124Ccehmjt [Mass/Vol]mg/dLNormal0.00-0.08 Pro[facility]icT[facility] Cities Community HospitalComment on above:Result Comment: This report is intended for use in clinical monitoring or management of patients.Performed By: #### CHRISTO CMP, 55207-4, 25028-3 #### [facility] ([id number]) [address] [place] [address] 46272Oyesxgyn I.cardiac High sensitivity method [Mass/Vol]on 79-54-7699XWRJUHUZ I, HIGH SENSITIVITY4 ng/LNormal<21[facility] Comment on above:Performed By: #### CHRISTO CMP, 99029-2, 33106-0 #### [facility] ([id number]) [address] [place] [address] 67401FVK AND AUTO DIFFon 46-12-9892IOONLJFB BASOPHIL0.1 X10E9/L Normal0.0-0.2POhioHealth O'Bleness HospitalComment on above:Performed By: #### CHRISTO, CMP, 93863-1, 11450-6 #### [facility] ([id number]) [address] [place] [address] 39471XGPSRQXA NEUTROPHIL8.3 X10E9/LHigh1.5-6.6ProUniversity Medical Center Of El PasoComment on above:Performed By: #### JASON VILLAFUERTE, , 87192-0 #### [facility] ([id number]) [address] [place] [address] 80613Jpbdnfbtu/100 WBC (Bld)0.9 %NormalBarnesville Hospital Comment on above:Performed By: #### CBCNarciso, [facility], , 82854-4 #### [facility] ([id number]) [address] [place] [address] 46862Qljuhivpfkq (Bld) [#/Vol]0.1 10*3/uLNormal0.0-0.4ProUniversity Medical Center Of El PasoComment on above:Performed By: #### JASON VILLAFUERTE, , 23929-4 #### [facility] ([id number]) [address] [place] [address] 53711Umplegahlsj/100 WBC (Bld)0.7 %NormalBarnesville Hospital Comment on above:Performed By: #### JASON VILLAFUERTE, , 69693-7 #### [facility] ([id number]) [address] [place] [address] 43968Cqehixrdniu distribution width (RBC) [Ratio]13.3 %Normal 11.5-15.0[facility] HospitalComment on above:Performed By: #### CBCNarciso, JASON, , 55163-6 #### [facility] ([id number]) [address] [place] [address] 90185Ngqpmaztvb (Bld) [Volume fraction]42.6 %Tbysiw31-92JndIizehrUniversity Medical Center Of El PasoComment on above:Performed By: #### JASON VILLAFUERTE, , 24213-5 #### [facility] ([id number]) [address] [place] [address] 94454Uspbuwsvfk (Bld) [Mass/Vol]15.0 g/cXIiwirz97.0-17.0[facility] HospitalComment on above:Performed By: #### CBCNarciso, CMP, , 48505-4 #### [facility] ([id number]) [address] [place] [address] 51717Klrsmmohtjs (Bld) [#/Vol]3.8 10*3/uLHigh1.0-3.5ProMedica [facility]cy Hospital BakersfieldComment on above:Performed By: #### CHRISTO, CMP, , 36741-4 #### [facility] ([id number]) [address] [place] [address] 56949Gravzkgmvdc/100 WBC (Bld)30.3 %NormalProUniversity Medical Center Of El Paso Comment on above:Performed By: #### CBCNarciso, CMP, , 63041-1 #### [facility] ([id number]) [address] [place] [address] 49588CVX (RBC) [Entitic mass]33.9 acNkfsrn60-46GjhTnickhUniversity Medical Center Of El PasoComment on above:Performed By: #### CBCNarciso, CMP, , 65702-0 #### [facility] ([id number]) [address] [place] [address] 52886CVRD (RBC) [Mass/Vol]35.2 g/aOIxarxk15-23CnsBiyhekUniversity Medical Center Of El PasoComment on above:Performed By: #### CBCA, CMP, , 01449-9 #### [facility] ([id number]) [address] [place] [address] 79242GPX (RBC) [Entitic vol]96 cJBfuxwy11-083ZdcTfoysm [facility] HospitalComment on above:Performed By: #### CBCA, CMP, 80488-2, 05562-2 #### [facility] ([id number]) [address] [place] [address] 71752Higgkfgmt (Bld) [#/Vol]0.2 10*3/uLNormal0-0.9[facility] HospitalComment on above:Performed By: #### CBCA, CMP, , 67591-7 #### [facility] ([id number]) [address] [place] [address] 06708Nypqulgej/100 WBC (Bld)1.8 %[facility] Comment on above:Performed By: #### CBCA, CMP, , 49015-2 #### [facility] ([id number]) [address] [place] [address] 33980Pclsuuinoan/100 WBC (Bld)66.3 %[facility] Comment on above:Performed By: #### CBCNarciso, CMP, , 95383-4 #### [facility] ([id number]) [address] [place] [address] 23758Ulazgmzk mean volume (Bld) [Entitic vol]9.2 fLNormal7-12 [facility]icT[facility] Cities Community HospitalComment on above:Performed By: #### CBCA, CMP, , 54641-9 #### [facility] ([id number]) [address] [place] [address] 59393Dvpdvgsru (Bld) [#/Vol]267 10*3/tLBbnvdc343-942OiaQlgygx [facility] HospitalComment on above:Performed By: #### CBCA, CMP, 47138-5, 97135-2 #### [facility] ([id number]) [address] [place] [address] 64326AMP COUNT4.43 X10E12/LNormal4.10-5.70[facility] Comment on above:Performed By: #### JASON VILLAFUERTE, , 13130-8 #### [facility] ([id number]) [address] [place] [address] 08515FBS (Bld) [#/Vol]12.5 10*3/uLHigh4.0-11.0ProUniversity Medical Center Of El PasoComment on above:Performed By: #### JASON VILLAFUERTE, , 67661-6 #### [facility] ([id number]) [address] [place] [address] 05503WVGLMZNMSYNLG METABOLIC PANELon 59-67-8524Jqpqobx [Mass/Vol]4.4 g/dLNormal3.2-5.3Pro[facility] BakersfieldComment on above:Performed By: #### JASON VILLAFUERTE, , 38819-9 #### [facility] ([id number]) [address] [place] [address] 02155MUK [Catalytic activity/Vol]81 U/RRtxray67-028WimTbrnsjUniversity Medical Center Of El PasoComment on above:Performed By: #### JASON VILLAFUERTE, , 17520-0 #### [facility] ([id number]) [address] [place] [address] 97003OEM [Catalytic activity/Vol]101 U/LHigh0-40ProUniversity Medical Center Of El PasoComment on above:Performed By: #### JASON VILLAFUERTE, , 28441-4 #### [facility] ([id number]) [address] [place] [address] 69921Jqlui gap [Moles/Vol]12 mmol/LNormal5-15ProUniversity [facility] Center Of El PasoComment on above:Performed By: #### JASON VILLAFUERTE, , 24861-5 #### [facility] ([id number]) [address] [place] [address], [place] [address]VWM [Catalytic activity/Vol]63 U/LHigh0-41ProUniversity Medical Center Of El PasoComment on above:Performed By: #### JASON VILLAFUERTE, 05864-5, 77740-2 #### [facility] ([id number]) [address] [place] [address], [place] [address]Sadwawbpb [Mass/Vol]0.8 mg/dLNormal0.3-1.2POhioHealth O'Bleness HospitalComment on above:Performed By: #### JASON VILLAFUERTE, , 84557-6 #### [facility] ([id number]) [address] [place] [address], [place] [address]Kdcqbpk [Mass/Vol]9.3 mg/dLNormal8.5-10.5POhioHealth O'Bleness HospitalComment on above:Performed By: #### JASON VILLAFUERTE, , 51529-0 #### [facility] ([id number]) [address] [place] [address], [place] [address]Xcrqiofl [Moles/Vol]96 mmol/KKge78-942AouXhiwhvBarnesville HospitalComment on above:Performed By: #### JASON VILLAFUERTE, , 88560-0 #### [facility] ([id number]) [address] [place] [address], [place] [address]EG2 [Moles/Vol]23 mmol/CJuftkj19-75UcuIbrlqmOhioHealth O'Bleness Hospital Comment on above:Performed By: #### JASON VILLAFUERTE, , 34608-8 #### [facility] ([id number]) [address] [place] [address], [place] [address]Frsrayikyb [Mass/Vol]0.74 mg/dLNormal0.70-1.20ProUniversity Medical Center Of El PasoComment on above:Result Comment: METHOD TRACEABLE TO IDMS STANDARD Performed By: #### JASON VILLAFUERTE, , 00898-6 #### [facility] ([id number]) [address] [place] [address] 01265tKVG (CKD-EPI) NON-RACE DEPENDENT>90Normal>59ProUniversity Medical Center Of El PasoComment on above:Result Comment: Reported eGFR is based on the CKD-EPI 2020 equation that does not use a race coefficient.Performed By: #### JASON VILLAFUERTE, , 18917-5 #### [facility] ([id number]) [address] [place] [address] 749[address]Bweaztl [Mass/Vol]170 mg/sIVdzt03-11XyfJibgfhBarnesville Hospital Comment on above:Performed By: #### JASON VILLAFUERTE, , 47917-5 #### [facility] ([id number]) [address] [place] [address]Euhgudxae [Moles/Vol]3.7 mmol/LNormal3.5-5.0ProUniversity Medical Center Of El PasoComment on above:Performed By: #### JASON VILLAFUERTE, , 77845-2 #### [facility] ([id number]) [address] [place] [address]Nvgvdps [Mass/Vol]8.7 g/dLHigh6.0-8.0[facility] Comment on above:Performed By: #### JASON VILLAFUERTE, , 51404-2 #### [facility] ([id number]) [address] [place] [address] 79[address]Iirbpn [Moles/Vol]131 mmol/HDuk582-548OzmMpnevpUniversity Medical Center Of El PasoComment on above:Performed By: #### JASON VILLAFUERTE, 08987-5, 17880-8 #### [facility] ([id number]) [address], FIRST FLOOR [place], [place] [address]Pjgt nitrogen [Mass/Vol]12 mg/dLNormal5-23Barnesville HospitalComment on above:Performed By: #### JASON VILLAFUERTE, 08240-8, 98567-3 #### [facility] ([id number]) [address] [place] [address]Hdcaiq D-dimer DDU (PPP) [Mass/Vol]on 08-08-2023 DIMER<150 Normal<255Barnesville HospitalComment on above:Result Comment: Results <255 ng/mL DDU: The presence of a VTE can safely be excluded with a negative D-Dimer result and Wells score. A negative result doesn't exclude the possibility of DIC. The test be repeated along with other diagnostic tests if the patient's symptoms persist or worsen. [email or web address] By: #### JASON VILLAFUERTE, 88750-1, 58755-6 #### [facility] ([id number]) [address] [place] [address] 225[address]EWDEZURTRim 28-48-5972Ndpynozrw [Mass/Vol]1.7 mg/dLLow1.8-2.6 [facility] Hospitaledica Mercy Hospital BakersfieldComment on above:Performed By: #### JASON VILLAFUERTE, 34026- 9, 25637-0 #### [facility] ([id number]) [address] [place] [address]Jmvrkpty I.cardiac High sensitivity method [Mass/Vol]on HOUR TROP I, HIGH BJAYLUAMBES59 ng/LNormal<21ProUniversity Medical Center Of El PasoComment on above:Performed By: #### 90291-7 #### [facility] ([id number]) [address] [place] [address] 01034TMHHALIO I, HIGH ALHEKASHVER18 ng/LNormal<21ProUniversity Medical Center Of El PasoComment on above:Performed By: #### CBCA, CMP, 23777-5, 34520-2 #### [facility] ([id number]) [address] [place] [address] [place] [address]JBD MACROSCOPIC NURon 73-49-7628YEPHFCERB NURNegativeNormalNEG Pro[facility]cy Hospital BakersfieldComment on above:Performed By: #### NUM #### [facility] ([id number]) [address] [place] [address], [place] [address]WCURC/HGB NURNegativeNormalNEGProUniversity Medical Center Of El PasoComment on above:Performed By: #### NUM #### [facility] ([id number]) [address] [place] [address] [place] [address]WNMNSKP NURNegativeNormalNEGProUniversity Medical Center Of El PasoComment on above:Performed By: #### NUM #### [facility] ([id number]) [address] [place] [address] [place] [address]PSIIENT NUR15 mg/dLAbnormalNEGProUniversity Medical Center Of El PasoComment on above:Performed By: #### NUM #### [facility] ([id number]) [address] [place] [address] [place] [address]FFTUUVAIB ESTERASE NURNegativeNormalNEGProUniversity Medical Center Of El PasoComment on above:Performed By: #### NUM #### [facility] ([id number]) [address] [place] [address] [place] [address]UHXYBMZ NURNegativeNormalNEGProUniversity Medical Center Of El PasoComment on above:Performed By: #### NUM #### [facility] ([id number]) [address] [place] [address] [place] [address]EG NUR5.3Dbqekn1.0-8.5ProMedica Mercy Hospital BakersfieldComment on above:Performed By: #### NUM #### [facility] ([id number]) [address] [place] [address] 289[address]JOYEJCR NURNegativeNormalNEGProUniversity Medical Center Of El PasoComment on above:Performed By: #### NUM #### [facility] ([id number]) [address] [place] [address] 24346EWDBRGPZ GRAVITY DANG<=1.179Mgtpqm3.003-1.035ProUniversity Medical Center Of El PasoComment on above:Performed By: #### NUM #### [facility] ([id number]) [address] [place] [address] 72447UNNUAQPGWUTF NUR0.2 eu/dLNormal<1.1POhioHealth O'Bleness Hospital Comment on above:Performed By: #### NUM #### [facility] ([id number]) [address] [place] [address] 72507SK CHEST 1 VWon 94-60-8618VX CHEST 1 VWXR CHEST 1 VW XR CHEST 1 VW [...] by Ivan Sosa MD on 08/08/2023 3:39 AMNormalProFort Duncan Regional Medical Center AUTO DIFFon 47-31-0969QZBV #0.1 103/ulNormal0.0-0.1Kettering Health DaytonComment on above:Performed By: #### CBC #### [facility] [address] [address] [address] Avi Jaimephils/100 WBC (Bld)0.5 %Normal0.2-2.0[facility] Comment on above:Performed By: #### CBC #### [facility] [address] [address] [address] Avi Pereira #0.1 103/ulNormal0.0-0.7The [facility]tering Health DaytonComment on above: Performed By: #### CBC #### [facility] [address] [place] [address] Dr. Avi Carosinophils/100 WBC (Bld)1.0 %Normal0.9-7.0The [facility] Comment on above:Performed By: #### CBC #### [facility] [address] [place] [address] Dr. Avi Carrythrocyte distribution width (RBC) [Ratio]12.2 %Fdamhj43.0-15.0 The [facility] Health DaytonComment on above:Performed By: #### CBC #### [facility] [address] [place] [address] Dr. Avi LimonHematocrit (Bld) [Volume fraction]45.2 %Ktjcpu57.0-54.0The [facility] Health DaytonComment on above:Performed By: #### CBC #### [facility] [address] [place] [address] Dr. Avi LimonHemoglobin (Bld) [Mass/Vol]14.6 g/wAVsxztr77.0-18.0The [facility] DaytonComment on above:Performed By: #### CBC #### [facility] [address] [place] [address] Dr. Avi Xiong #0.04 10e3/ulCritically high0.00-0.03The [facility] Comment on above:Performed By: #### CBC #### [facility] [address] [place] [address] Dr. Avi Xiong %0.4 %Normal0.0-0.5The [facility] Health DaytonComment on above: Performed By: #### CBC #### [facility] [address] [place] [address] Dr. Avi Moreira #4.4 103/ulCritically high1.2-3.8The [facility] Comment on above:Performed By: #### CBC #### [facility] [address] [address] [address] Avi Márquezmphocytes/100 WBC (Bld)39.8 %Btbhzk04.5-60.0The [facility] DaytonComment on above:Performed By: #### CBC #### [facility] [address] [place] [address] Dr. Avi Oshea DIFF REQNONormalThe [facility] DaytonComment on above: Performed By: #### CBC #### [facility] [address] [address] [address] Avi Doherty (RBC) [Entitic mass]32.7 klGewsls28.9-34.0The [facility] DaytonComment on above:Performed By: #### CBC #### [facility] [address] [place] [address] Dr. Avi Doherty (RBC) [Mass/Vol]32.3 g/hONnikur68.9-35.2The [facility] Health DaytonComment on above:Performed By: #### CBC #### [facility] [address] [place] [address] Dr. Avi Doherty (RBC) [Entitic vol]101.1 fLCritically high80.0-94.0The [facility] DaytonComment on above:Performed By: #### CBC #### [facility] [address] [place] [address] Dr. Avi Sabillon #0.6 103/ulNormal0.3-0.8The [facility] DaytonComment on above:Performed By: #### CBC #### [facility] [address] [place] [address] Dr. Avi Barronocytes/100 WBC (Bld)5.0 %Normal1.7-12.0The [facility] Comment on above:Performed By: #### CBC #### [facility] [address] [place] [address] Dr. Avi Link #5.9 103/ulNormal1.4-6.5The Juvencio HospitalComment on above:Performed By: #### CBC #### [facility] [address] [address] [address] Avi Dumontutrophils/100 WBC (Bld)53.3 %Htvvnx10.0-75.0The [facility] DaytonComment on above:Performed By: #### CBC #### [facility] [address] [address] [address] Avi LimonPlatelet mean volume (Bld) [Entitic vol]11.1 fLNormal9.5-13.5The [facility] DaytonComment on above:Performed By: #### CBC #### [facility] [address] [place] [address] Dr. Avi LimonPLT238 103/bpKnhcho296-016Pog [facility] DaytonComment on above: Performed By: #### CBC #### [facility] [address] [place] [address] Dr. Avi LimonRBC4.47 106/ulCritically low4.70-6.10The [facility] DaytonComment on above:Performed By: #### CBC #### [facility] [address] [place] [address] Dr. Avi LimonWBC11.0 103/ulNormal4.0-11.0The [facility] DaytonComment on above:Performed By: #### CBC #### [facility] [address] [place] [address] Dr. Avi LimonPROF CHEM 8 (BAS METB)on 99-77-4812Nawpk gap [Moles/Vol]13.0 mmol/LNormalThe [facility] DaytonComment on above:Performed By: #### HSTROPN, BMP #### [facility] [address] [place] [address] Dr. Avi LimonCalcium [Mass/Vol]9.6 mg/dLNormal8.5-10.1[facility] on above:Performed By: #### HSTROPN, BMP #### [facility] [address] [place] [address] Dr. Yilan ChangChloride [Moles/Vol]91 mmol/LCritically jyd08-264Bzi [facility] DaytonComment on above:Performed By: #### HSTROPN, BMP #### [facility] [address] [address] [address] Avi LimonCO2 [Moles/Vol]29.1 mmol/YHkyvga77.0-32.0The [facility] Comment on above:Performed By: #### HSTROPN, BMP #### [facility] [address] [place] [address] Dr. Avi LimonCreatinine [Mass/Vol]0.80 mg/dLNormal0.70-1.30The [facility] DaytonComment on above:Performed By: #### HSTROPN, BMP #### [facility] [address] [place] [address] Dr. Cárdenas ChangEGFR-AF ARGENTINE>60Normal>=60The [facility] DaytonComment on above:Performed By: #### HSTROPN, BMP #### [facility] [address] [place] [address] Dr. Cárdenas ChangEGFR-NON AF ARGENTINE>60Normal>=60The [facility] DaytonComment on above:Performed By: #### HSTROPN, BMP #### [facility] [address] [place] [address] Dr. Avi LimonGlucose [Mass/Vol]178 mg/dLCritically kbjf99-493Hmf [facility] DaytonComment on above:Performed By: #### HSTROPN, BMP #### [facility] [address] [place] [address] Dr. Avi LimonPotassium [Moles/Vol]3.1 mmol/LCritically low3.5-5.1The [facility] DaytonComment on above:Performed By: #### HSTROPN, BMP #### [facility] [address] [place] [address] Dr. Avi LimonSodium [Moles/Vol]130 mmol/LCritically wms501-081Jsh [facility] DaytonComment on above:Performed By: #### HSTROPN, BMP #### [facility] [address] [address] [address] Avi Little nitrogen [Mass/Vol]14.0 mg/dLNormal7.0-18.0The [facility] DaytonComment on above:Performed By: #### HSTROPN, BMP #### [facility] [address] [place] [address] Dr. Avi LimonUrea nitrogen/Creatinine [Mass ratio]17.5 mg/mgNormEast Ohio Regional HospitalComment on above:Performed By: #### HSTROPN, BMP #### [facility] [address] [place] [address] Dr. Avi Aguillon, HIGH SENSITIVITYon 27-27-3444SOLXOL19.0 pg/mLNormal 4.0-76.1The [facility] DaytonComkalamazoo psychiatric hospital on above:Result Comment: CUT-OFF POINTS HAVE BEEN ESTABLISHED BASED ON THE FOURTH UNIVERSAL DEFINITIONS OF MYOCARDIAL INFARCTION. THE UPPER REFERENCE LIMIT (URL) OF TROPONIN, DEFINED THE 99TH PERCENTILE OF cTnI DISTRIBUTION IN A REFERENCE POPULATION, HAS BEEN CONFIRMED THE DECISION THRESHOLD FOR [place] DIAGNOSIS.Performed By: #### HSTROPN BMP #### [facility] [address] [place] [address] Dr. Avi LimonXR CHEST 1 Von 01-04-6642CG CHEST 1 VEXAM: Portable chest REASON FOR EXAM: Palpitations. TECHNIQUE: A portable frontal view of the chest was obtained. COMPARISON: 01/24/2021. FINDINGS: The lungs are well-inflated and clear. The heart and mediastinum are normal. There is no mass or pathologic adenopathy. Osseous structures are normal. IMPRESSION: No acute cardiopulmonary process. Electronically authenticated by: HORACE SOTO Date: 2022-05-12 15:29[facility] Cleveland EastBasi Metabolic Panelon 95-24-7379Cndfxsj [Mass/Vol]9.0 mg/dL Normal8.2-10.2FAdena Fayette Medical CenterComment on above:Performed By: #### CBC, BMP, CK, CKMB, TROP #### [facility] [address] [place] [address] USAChloride [Moles/Vol]97 mmol/AXyheps95-418YjmhzkficTogus Va Medical CenterComment on above:Performed By: #### CBC, BMP, CK, CKMB, TROP #### [place] [address] USACO2 [Moles/Vol]24.9 mmol/YWtzrxz09.0-30.0T[facility] Va Medical CenterComment on above:Performed By: #### CBC, BMP, CK, CKMB, TROP #### [facility] [address] [place] [address] USACreatinine [Mass/Vol]0.70 mg/dLNormal0.64-1.27T[facility] Va Medical CenterComment on above:Performed By: #### CBC, BMP, CK, CKMB, TROP #### [place] [address] USACreatinine [Mass/Vol]160.6574872113 mg/dLNormSelect Medical Specialty Hospital - CantonComment on above:Result Comment: PERFORMED BY: [place] [address] PATHOLOGIST [employer] GUANACO GRANADOS M.D.Performed By: #### CBC, BMP, CK, CKMB, TROP #### [place] [address] USAEstimated GFR ( Santa> 60NormSelect Medical Specialty Hospital - CantonComment on above:Result Comment: GFR estimated reference range: According to KDOQI guidelines, <60 ml/min/1.73m2 is sufficient to diagnose a patient with chronic kidney disease.Performed By: #### CBC, BMP, CK, CKMB, TROP #### [place] [address] USAEstimated GFR (Non- Am> 60NormSelect Medical Specialty Hospital - CantonComment on above:Performed By: #### CBC, BMP, CK, CKMB, TROP #### [place] [address] USAGlucose [Mass/Vol]229 mg/mTLxok18-292EcvaxgxmfTogus Va Medical CenterComment on above:Result Comment: Random Glucose Reference Range is dependent on time and content of last meal. Glucose of more than 200 mg/dL in a nonstressed, ambulatory subject supports the diagnosis of Diabetes Mellitus. ADA recommended reference rangePerformed By: #### CBC, BMP, CK, CKMB, TROP #### [place] [address] USAPotassium [Moles/Vol]3.0 mmol/LLow3.5-5.1FAdena Fayette Medical CenterComment on above:Performed By: #### CBC, BMP, CK, CKMB, TROP #### [place] [address] USASodium [Moles/Vol]133 mmol/RUgx331-221AaqyorgurTogus Va Medical CenterComment on above:Performed By: #### CBC, BMP, CK, CKMB, TROP #### [place] [address] USAUrea nitrogen [Mass/Vol]10 mg/dLNormal9-23Togus Va Medical CenterComment on above:Performed By: #### CBC, BMP, CK, CKMB, TROP #### [place] [address] USAComplete Blood Count Auto Diffon 86-88-6071Pexkyergh (Bld) [#/Vol]0.1 10*3/uLNormal0.0-0.2FAdena Fayette Medical CenterComment on above:Result Comment: PERFORMED BY: [place] [address] PATHOLOGIST [employer] GUANACO GRANADOS M.D.Performed By: #### CBC, BMP, CK, CKMB, TROP #### [place] [address] USABasophils/100 WBC (Bld)0.8 %Normal.Togus Va Medical CenterComment on above:Performed By: #### CBC, BMP, CK, CKMB, TROP #### [place] [address] USAEosinophils (Bld) [#/Vol]0.2 10*3/uLNormal0.0-0.45 [facility] Va Medical CenterComment on above:Performed By: #### CBC, BMP, CK, CKMB, TROP #### [place] [address] USAEosinophils/100 WBC (Bld)2.4 %Normal.Togus Va Medical CenterComment on above:Performed By: #### CBC, BMP, CK, CKMB, TROP #### [place] [address] USAErythrocyte distribution width (RBC) [Ratio]12.6 %Normal 12.0-14.8T[facility] Va Medical CenterComment on above:Performed By: #### CBC, BMP, CK, CKMB, TROP #### [place] [address] USAHematocrit (Bld) [Volume fraction]38.4 %Low38.8-50.0 [facility] Va Medical CenterComment on above:Performed By: #### CBC, BMP, CK, CKMB, TROP #### [place] [address] USAHemoglobin (Bld) [Mass/Vol]13.4 g/wLTqdtox18.0-17.0 [facility] Va Medical CenterComment on above:Performed By: #### CBC, BMP, CK, CKMB, TROP #### [place] [address] USALymphocytes (Bld) [#/Vol]3.1 10*3/uLNormal1.00-4.8 [facility] Va Medical CenterComment on above:Performed By: #### CBC, BMP, CK, CKMB, TROP #### [place] [address] USALymphocytes/100 WBC (Bld)33.4 %Normal.Togus Va Medical CenterComment on above:Performed By: #### CBC, BMP, CK, CKMB, TROP #### [place] [address] USAMCH (RBC) [Entitic mass]35.0 g/oKGgsvpm00.5-35.6FAdena Fayette Medical CenterComment on above:Performed By: #### CBC, BMP, CK, CKMB, TROP #### [facility] [address] (RBC) [Entitic mass]33.5 taBggfee66.5-35.2FAdena Fayette Medical CenterComment on above:Performed By: #### CBC, BMP, CK, CKMB, TROP #### [facility] [address] (RBC) [Entitic vol]95.8 xKIcijuo47.5-101Togus Va Medical CenterComment on above:Performed By: #### CBC, BMP, CK, CKMB, TROP #### [place] [address] USAMonocytes (Bld) [#/Vol]0.6 10*3/uLNormal0.0-0.8Togus Va Medical CenterComment on above:Performed By: #### CBC, BMP, CK, CKMB, TROP #### [place] [address] USAMonocytes/100 WBC (Bld)6.6 %Normal.Togus Va Medical CenterComment on above:Performed By: #### CBC, BMP, CK, CKMB, TROP #### [place] [address] USANeutrophils (Bld) [#/Vol]5.3 10*3/uLNormal1.8-7.7FAdena Fayette Medical CenterComment on above:Performed By: #### CBC, BMP, CK, CKMB, TROP #### [place] [address] USANeutrophils/100 WBC (Bld)56.8 %Normal.Togus Va Medical CenterComment on above:Performed By: #### CBC, BMP, CK, CKMB, TROP #### [place] [address] USANucleated RBC/100 WBC (Bld) [Ratio]0.3 %Normal0-0.5 [facility] Va Medical CenterComment on above:Performed By: #### CBC, BMP, CK, CKMB, TROP #### [facility] [address] [place] [address] USAPlatelet mean volume (Bld) [Entitic vol]9.4 fLNormal 6.6-10.1FAdena Fayette Medical CenterComment on above:Performed By: #### CBC, BMP, CK, CKMB, TROP #### [facility] [address] [place] [address] USAPlatelets (Bld) [#/Vol]228 10*3/cATjfgfc499-924VnfqeojspTogus Va Medical CenterComment on above:Performed By: #### CBC, BMP, CK, CKMB, TROP #### [place] [address] USARBC (Bld) [#/Vol]4.01 10*6/uLNormal3.90-5.60T[facility] Va Medical CenterComment on above:Performed By: #### CBC, BMP, CK, CKMB, TROP #### [facility] [address] [place] [address] USAWBC (Bld) [#/Vol]9.4 10*3/uLNormal4.5-11.0Togus Va Medical CenterComment on above:Performed By: #### CBC, BMP, CK, CKMB, TROP #### [facility] [address] [place] [address] USACreatine Kinaseon 75-04-7511JS [Catalytic activity/Vol]410 U/TIrxp55-561LyhpgipzeTogus Va Medical CenterComment on above:Performed By: #### CBC, BMP, CK, CKMB, TROP #### [place] [address] USACreatinine Kinase MBon 84-28-6356WN.MB [Mass/Vol]0.4 ng/mL Normal0.00-2.50Togus Va Medical CenterComment on above:Performed By: #### CBC, BMP, CK, CKMB, TROP #### [facility] [address] [place] [address] USACK.MB [Mass/Vol]1.8 ng/mLNormal0.6-6.3FAdena Fayette Medical CenterComment on above:Performed By: #### CBC, BMP, CK, CKMB, TROP #### [facility] [address] [place] [address] USAECG 12 lead ECGon 00-97-0276QPM 12 lead ECGM[facility] [place] [address] [place] [address] Electrocardiograph Report Signed Patient: Maciel Mohamud MR#: [id number] : 1980 Acct:[id number] Age/Sex: 39 / M ADM Date: 03/30/19 Loc: ER Room: Type: [facility] ER Attending Dr: Ordering Provider: Maciel [...] Tucker MD 03/30/19 1037 Signed By: 03/30/19 1555NormalTogus Va Medical CenterTroponin I(TnI)on 04-79-0636Jkmxgtwy I.cardiac [Mass/Vol]ng/mLNormal0-0.02Togus Va Medical CenterComment on above:Result Comment: JOSE ALEJANDRO [place] Cut off value > or equal to 0.03 ng/mL in conjunction with clinical conditions of myocardial infarction. (www.escardio.org/guidelines) PERFORMED BY: [place] [address] PATHOLOGIST [employer] GUANACO GRANADOS M.D.Performed By: #### CBC, BMP, CK, CKMB, TROP #### [facility] [address] [id number] USAXR chest 2V*on 35-68-0194IK chest 2V*[facility] [place] [address] [place] [address] XRay Report Signed Patient: Maciel Mohamud MR#: [id number] : 1980 Acct:[id number] Age/Sex: 39 / M ADM Date: 03/30/19 Loc: ER Room: Type: [facility] ER Attending Dr: Ordering Provider: Maciel [...] Yazan Hansen M.D.03/30/2019 1:02 PM Dictation Location: [id number] Transcribed By: [facility] 03/30/19 1302 Dictated By: Yazan Hansen DO 03/30/19 1302 Signed By: 03/30/19 1302[facility] Vital Signs Date TimeVital SignValuePerforming MejgmyvhkNzryqarg28-64-5641 15:33-0500Body .1 cmKendra Smith [employer] EXPERT[employer]MI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 Work Phone: [facility] HospitalGRID12-02-2024 15:33-0500Body mass index (BMI) [Ratio]39.44 kg/z5RosxxsDaria Smith [employer] EXPERT[employer]MI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 Work Phone: [facility] CenterSpartz Wxwceb46-59-3016 15:33-0500Body epklxx405.5 kgKendra Smith [employer] EXPERT[employer]MI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 Work Phone: [facility] Blip Ocadyx80-99-1454 15:33-0500Diastolic blood mm[Hg]Daria Kyleamor [employer] EXPERT[employer]MI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 Work Phone: [facility]12-02-2024 15:33-0500Heart rate 86 /minDaria Smith COTTON EXPERT-MI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 Work Phone: [facility] Blip [id number] 15:33-0500 Respiratory rate18 /minDaria Smith COTTON EXPERT-MI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 Work Phone: [facility]12-02-2024 15:33-1551JfP5% (BldA) [Mass fraction]97 %Daria Solercourtneyadams COTTON EXPERT-MI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 Work Phone: [place] Cbbivv92-52-7885 15:33-0500Systolic blood mm[Hg]Daria Solercourtneyadams COTTON EXPERT-MI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 Work Phone: [facility] Encounters Encounter DateEncounter TypeCare ProviderFacilityStart: 11-14-2024 End: 15-47-6351UrufdkIzffyc Schlachter COTTON EXPERT-MI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 Work Phone: [facility] Physicians Family MedicineComment on above: Essential hypertension; Type 2 diabetes mellitus without complication, without long-term current use of insulin ([facility])Start: 11-13-2024 End: 62-87-3238kipcfesapnZkwyywr HARWOODFacility:Occupational Health and WellnessStart: 09-12-2024 End: 10-25-9267LzapktOjlzhk Schlachter COTTON EXPERT-MI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 Work Phone: [facility] Physicians Family MedicineComment on above: Essential hypertensionStart: 03-27-2024 End: 19-77-5648Qsqncwpfj encounterJobst Service Work Phone: [phone])[facility] Medication Therapy ManagementStart: 03-19-2024 End: 90-78-4979Abnsovv encounter statusDaria Smith COTTON EXPERT-MI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 Work Phone: [facility] Blip SystemStart: 03-19-2024 End: 06-85-6546Mieryeng preventive med est patient 40-64yrAleksandra Smith APRN-MI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 Work Phone: [facility] Physicians Family MedicineComment on above: Wellness examination (Primary Dx); Type 2 diabetes mellitus without complication, without long-term current use of insulin ([facility]); Essential hypertension; Hepatic steatosis; Acute non-recurrent maxillary sinusitisStart: 03-19-2024 End: 20-98-7526syvrmhginkUEMUESGoshen General Hospital Ambulatory P[facility] Start: 58-13-8535Scywztdkp for general adult medical examination without abnormal findingsShore Memorial Hospital Ambulatory PPGStart: 03-14-2024 End: 61-79-6285LhkeixMkyuuqz Chavez [facility] Physicians Family Medicine Comment on above:Essential hypertension; Type 2 diabetes mellitus without complication, without long-term current use of insulin ([facility])Start: 02-27-2024 End: 08-51-5160vkwyzlhdtvDdlgbmv HARWOODFacility:Occupational Health and WellnessStart: 10-22-2023 End: 82-31-4411KrdssdEasmmZac Arteaga MD Work Phone: [facility] Physicians Family MedicineStart: 09-07-2023 End: 35-31-5306QdyhhuBmjqxx Schlachter COTTON EXPERT-MI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 Work Phone: [facility] Physicians Family MedicineComment on above: Essential hypertension; Type 2 diabetes mellitus without complication, without long-term current use of insulin ([facility])Start: 08-10-2023 End: 76-05-6133Mmsfvrlyf department patient visitMercy Healthtart: 08-08-2023 End: 16-28-1742UgkpmeYeimy Smith COTTON EXPERT-MI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 Work Phone: [facility] Physicians Family MedicineComment on above: Alcohol withdrawal syndrome without complication ([facility]) (Primary Dx)Start: 08-08-2023 End: 17-64-8728Opzyffakp department patient visitJERRYPEGGY Santos RENNYRiverside [facility] Hospital HospitalStart: 08-08-2023 End: 13-41-3047Lstifzzuf department patient visitDARIA VALERIANORiverside Methodist Hospital HospitalStart: 59-67-9893AqyjzfNjjvq T Defrance MD Work Phone: [facility] Physicians Family MedicineComment on above: Type 2 diabetes mellitus without complication, without long-term current use of insulin ([facility])Start: 05-12-2022 End: 74-00-8715bwovnpvmozHX DOCTOR MISCFacility:H1 Procedures DateProcedureProcedure DetailPerforming ClinicianStart: 19-99-1874Bpsyc depression screening assessmentDarossana Arteaga MD Work Phone: Plan of Treatment DateCare ActivityDetailAuthorStart: 46-62-5395WXwG,Tdap and Td Vaccines (3 - Td or Tdap)DTaP,Tdap and Td Vaccines (3 - Td or Tdap)[place] SystemStart: 74-47-7001Dmndr BMI Follow Up PlanAdult BMI Follow Up PlanCent[place] SystemStart: 68-92-9629Hwfbr BMI ScreeningAdult BMI ScreeningCent[place] SystemStart: 33-08-6459Swbklgi ScreeningTobacco ScreeningMemorial [facility] Start: 41-27-1061Exyyuvzqx vaccinationInfluenza VaccineCent[place] System Start: 11-23-2024 End: 69-36-9929Qsssxtq encounter qjinuwodz26/08/2025 10:00 AM EDT Office Visit [facility] [address] [place] [id number] Daria Smith, [facility] [address] [place], [place] [address] [facility] Family MedicineStart: 10-24-2024 End: 66-13-6155Inivzuu encounter bwgiirncd05/09/2025 3:00 PM EDT Office Visit [facility]Sleep [facility] [address] MARTICROSSRO[facility] REG[facility] [place] [address] Tosha Wooten, COTTON EXPERT-MI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 [address] [address] [facility] Pulmonary/Sleep MedicineStart: 05-39-0856Lnbil BMI ScreeningAdult BMI Screening [place] SystemStart: 46-70-5391Favjelu ScreeningTobacco Screening [place] SystemStart: 75-46-4925Qexuw BMI ScreeningAdult BMI Screening [place] SystemStart: 84-42-9309Krlgtio ScreeningTobacco Screening [facility] Hospitaltart: 05-30-2024 End: 96-49-6774Zfcivtg encounter fqjygkzmm94/12/2025 10:15 AM EST Office Visit [facility] [address] [facility] [place] [address] Tosha Wooten, COTTON EXPERT-MI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 [address] [address] [facility] Pulmonary/Sleep MedicineStart: 04-27-2024 End: 13-75-8772Cmigqhz encounter ffbnpnjib44/10/2025 9:30 AM EST Office Visit [facility] [address] [place] [address] Gricel Chu MD [address] [place] [address] [address] [place] [address] [facility]tart: 04-25-2024 End: 24-99-0813Mjtjetqs Rsviqga8204/25/2024 11:00 AM EST Clinical Support [facility] Medication Therapy Management [address] [place] [address] OfyUzpvbz [facility] Medication Therapy ManagementStart: 04-19-2024 End: 11-67-4198Votbiog encounter gjtlmipwv91/02/2025 8:30 AM EST Office Visit [facility] [address] [place], [place] Daria Smith, COTTON EXPERT-MI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 [address] [place] [address] [facility] Phys[facility] MedicineStart: 03-19-2024 End: 66-75-1576Oiimerz encounter agsdxloit48/02/2024 3:30 PM EST Office Visit [facility] [address], [place] Daria Smith, COTTON EXPERT-MI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 [address] [place] [address] [facility] MedicineStart: 03-19-2024 End: 03-09-9994PML W Auto Differential panel - BloodCBC auto differential Lab Routine Wellness examination Expected: 03/19/2024, Expires: 03/19/2025[facility] Work Phone: comment on above:Expected: 03/19/2024, Expires: 03/19/2025Start: 03-19-2024 End: 08-48-9416Ajtodwwqsw A1c/Hemoglobin.total in BloodHemoglobin A1c Lab Routine Type 2 diabetes mellitus without complication, without long-term current use of insulin ([facility]) Expected: 03/19/2024, Expires: 03/19/2025ProCorey HospitalHokey Pokey [facility] Hospital SystemComment on above:Expected: 03/19/2024, Expires: 03/19/2025Start: 03-19-2024 End: 16-01-2439Yugzo 1996 panel - Serum or PlasmaLipid profile Lab Routine Wellness examination Expected: 03/19/2024, Expires: 03/19/2025Pro[facility] HospitalHo[facility] Po[facility] SystemComment on above:Expected: 03/19/2024, Expires: 03/19/2025Start: 03-19-2024 End: 39-21-6069Royilpngyaye - Albumin: Creatinine Urine RatioMicroalbumin - Albumin: Creatinine Urine Ratio Lab Routine Type 2 diabetes mellitus without complication, without long-term current use of insulin ([facility]) Expected: 03/19/2024, Expires: 03/19/2025[facility] HospitalComment on above:Expected: 03/19/2024, Expires: 03/19/2025Start: 03-19-2024 End: 04-95-1742Wdoduge profile includes TSH LD8Ojratwg profile includes TSH FT4 Lab Routine Type 2 diabetes mellitus without complication, withoutlong-term current use of insulin ([facility]) Expected: 03/19/2024, Expires: 03/19/2025 [facility] HospitalComment on above:Expected: 03/19/2024, Expires: 03/19/2025Start: 99-53-6850Hiulq BMI Follow Up PlanAdult BMI Follow Up Plan [facility] Hospitaltart: 84-49-5648ZWXQO-19 Vaccine ( season) COVID-19 Vaccine ()[place] SystemStart: 12-18-2023 Influenza vaccinationInfluenza VaccineCent[place] SystemStart: 12-02-2023 Adult BMI ScreeningAdult BMI ScreeningCent[place] SystemStart: 12-02-2023 Tobacco ScreeningTobacco ScreeningNovant Health Rehabilitation Hospitaltart: 66-31-3016QZXAQ- 19 Vaccine ( season)COVID-19 Vaccine ()[place] SystemStart: 19-27-1119Aflvolpun vaccinationInfluenza VaccineCent[place] SystemStart: 36-02-6745Gwnjgdchon ScreeningDepression ScreeningCent[place] SystemStart: 96-20-1604Rfyfabfr foot examinationDiabetic Foot Exam [place] SystemStart: 02-74-0576Lbbeofdu foot examinationDiabetic Foot ExamCent[place] SystemStart: 34-52-0011Kyswxxvwwg ScreeningDepression ScreeningNovant Health Rehabilitation Hospitaltart: 87-96-0902Stoghryj screeningDiabetic Ophthalmology ExamMemorial Health System [facility] End: 58-40-5020Nadoopoccdlsc metabolic 2000 panel - Serum or PlasmaComprehensive metabolic panel Lab Routine Wellness examination 1 Occurrences starting 03/19/2024 until 03/19/2025[facility] HospitalComment on above:1 Occurrences starting 03/19/2024 until 03/19/2025 Immunizations Immunization DateImmunizationNotesCare CbzhnlpkBoiruowm90-86-9121zofbpxopzj, tetanus toxoids and pertussis vaccineRicardo Arteaga MD Work Phone: [facility] HospitalRvarfl59-10-1463JWURV-52, mRNA, LNP- S, PF, 30mcg/0.3mL DoseDlashell Arteaga MD Work Phone: [facility] HospitalYtyiak14-40-2176OCYUD-81, mRNA, LNP- S, PF, 30mcg/0.3mL DoseDlashell Arteaga MD Work Phone: [facility] HospitalFzlnxk19-71-2130mbcknracd, injectable, quadrivalent, preservative freeDlashell Arteaga MD Work Phone: [facility] HospitalXhtgju92-96-5546sreclmrvycof polysaccharide vaccine, 23 valentDarossana Arteaga MD Work Phone: [facility] HospitalKituja44-61-4419lfbymfhzx virus vaccine, unspecified formulationRicardo Arteaga MD Work Phone: [facility]11-20-2017tetanus toxoid, reduced diphtheria toxoid, and acellular pertussis vaccine, adsorbedRicardo Arteaga MD Work Phone: [facility] Payers DatePayer CategoryPayerPolicy ID2023Medicaid [id number] [id number] 1978 [id number] Social History DateTypeDetailFacilityStart: 86-96-4001Tqingpy smoking status NHISNever smoked tobaccoCenterville SystemStart: 93-83-7528Qsjnmbx use and exposureSmokeless tobacco non-userCent[place] SystemStart: 08-08-2023 End: 00-18-6967Hxpkpxziw beverage intakeCurrent drinker of alcohol (finding) [place] SystemStart: 02-26-2019 End: 05-96-5007Kkbxpmr of Social functionCenterville SystemStart: 02-26-2019 End: 38-81-9594Aehhfq connection and isolation panelMemorial Health System [facility] Memorial Hospital Frequency of Communication with Friends and FamilyNeProMedica [facility] How often to you have a drink containing alcohol?NeverMemorial Health System Marietta Memorial HospitalHow hard is it for you to pay for the very basics like food, housing, medical care, and heatingNot very hardCent[place] SystemDo you feel stress - tense, restless, nervous, or anxious, or unable to sleep at night because yourmind is troubled all the time - these days [OSQ]Very muchCenterville SystemStart: 79-42-4650Zjfymuhrg63BhiPakija Health SystemStart: 49-23-1513Hnmmxbd Comment6-8 24oz of beer a dayCent[place] SystemStart: 03-28-3136Iac assigned at MaleCent[place] SystemStart: 61-65-1239Snbnjj identityIdentifies as male gender (finding)[place] SystemStart: 90-48-8257Srelix orientation Heterosexual (finding)[place] SystemStart: 04-66-3442Bvjpdle intakeEx- drinker (finding)[place] SystemStart: 78-33-3534RqrPrtx (finding) [facility] Medical Equipment Procedure CodeEquipment CodeEquipment Original TextEquipment IdentifierDates [id number]: 07-15-2023 End: 64-93-4158Mgae 2 x [id number]: 04-01-2020 End: 99-08-3907nen 1 LANCET to TEST BLOOD SUGAR once [id number]: 95-84-9757xoh 1 TEST STRIP to TEST BLOOD SUGAR once [id number]: 10-25-2022 End: 35-55-9217yxc 1 LANCET to TEST BLOOD SUGAR once [id number]: 07-22-2022 End: 53-78-5415Vpw to test [id number]: 50-24-4666zrk 1 LANCET to TEST BLOOD SUGAR once [id number]: 28-33-8510oyt 1 TEST STRIP to TEST BLOOD SUGAR once [id number]: 03-19-2024 Clinical Notes 07-14-2023 to 11-14-2024 Note Date & JpevQrgjVeefsrka56-76-1130 Miscellaneous Notes* Telephone Encounter - FRANCO Mathews - 11/14/2024 3:53 PM EDT Will fill but needs to get fasting pending lab work done prior to appointment. documented in this encounterMemorial Health System [facility] Hospital07-30-2025 Telephone encounter Note* Telephone Encounter - FRANCO Mathews - 11/14/2024 3:53 PM EDT Will fill but needs to get fasting pending lab work done prior to appointment. [facility]12-10-2024 Miscellaneous Notes* Telephone Encounter - Garcia Canela - 03/27/2024 2:06 PM EST [facility] [address] [facility] [address] New referral received by [facility] for diabetes. Patient was contacted to schedule appointment at [facility] ([facility]). This was my first attempt to reach the patient and patient was scheduled keith appointment on 04/25/24 at 11am. Patient will be asked to bring [facility] Additional Info: Medication List, Blood Glucose Meter, and Blood Sugar Log. Referring provider: FRANCO Mathews * Telephone Encounter - Dinorah Blancas - 03/27/2024 2:06 PM EST Noted. Referral added to spreadsheet. documented in this encounterMemorial Health System [facility] Hospital12-10-2024 Telephone encounter Note* Telephone Encounter - Garcia Canela - 03/27/2024 2:06 PM EST [facility] MEDICATION THERAPY MANAGEMENT [facility] [address] [facility] [address] New referral received by [facility] for diabetes. Patient was contacted to schedule appointment at [facility] ([facility]). This was my first attempt to reach the patient and patient was scheduled keith appointment on 04/25/24 at 11am. Patient will be asked to bring [facility] Additional Info: Medication List, Blood Glucose Meter, and Blood Sugar Log. Referring provider: FRANCO Mathews [facility] Blip Duacal84-84-3445 Telephone encounter Note* Telephone Encounter - Dinorah Blancas - 03/27/2024 2:06 PM EST Noted. Referral added to spreadsheet. [facility]icOhio[facility]leness HospitalNbflip97-81-0725 History of Present illness Narrative* Daria Castellanoswaldoamor, COTTON EXPERT-MI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 - 03/19/2024 3:30 PM EST Images from the original note were not included. [address] [place] [address] Subjective: Maciel Mohamud is a 44 y.o. [...] We talked at length about getting to [facility] or [facility] for medication again. Information given. He is also having cold symptoms. He is due for all lab work,and to get back to diabetes management. We also talked at length about liver and hepatic steatosis and we placed referral in 2022 but he did not make it. Will place referral again. Annual Exam Associated symptoms include congestion and coughing. 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) 03/22/2018 1800 [employer] My Plate // 45190 steps a day with 30 min aerobic 3 x wk Diabetes mellitus ([facility]) Former consumption of alcohol 03/22/2018 AA // [...] complication, without long-term current use of insulin ([facility]) - blood sugar diagnostic (ONETOUCH ULTRA TEST) [...] - Albumin: Creatinine Urine Ratio; Future - [facility] Diabetes Service; Future Essential hypertension - amLODIPine (NORVASC) 5 mg tablet; Take 1 tablet (5 mg total) by mouth in the morning. - lisinopriL (PRINIVIL,ZESTRIL) 20 mg tablet; Take 1 tablet (20 mg total) by mouth in the morning and 1 tablet (20 mg total) before bedtime. Hepatic [facility]; Future Other orders - glimepiride (AMARYL) 2 mg tablet; Take 1 tablet (2 mg total) by mouth in the morning and 1 tablet(2 mg total) before bedtime. - pravastatin (PRAVACHOL) [...] once daily 100 strip 0 blood-glucose meter [facility] One unit / make sure covered by insurance 1 each 0 glimepiride (AMARYL) 2 mg tablet Take 1 tablet (2 mg total) by mouth in the morning and 1 tablet (2mg total) before bedtime. 60 tablet 0 lancets (freestyle) 28 gauge misc Test 2 x day 180 each 1 lancets (ONETOUCH DELICA PLUS LANCET) 33 gauge [facility] use 1 LANCET to TEST BLOOD SUGAR once daily 100each 0 lisinopriL (PRINIVIL,ZESTRIL) 20 mg tablet Take 1 tablet (20 mg total) by mouth in the morning and 1 tablet (20 mg total) before bedtime. 60 tablet 0 metFORMIN (GLUCOPHAGE) 1000 mg tablet take 1 tablet by mouth twice a day for diabetes 60 tablet 0 pravastatin (PRAVACHOL) 20 mg tablet Take 1 tablet (20 mg total) by mouth in the morning. 30 tablet0 No facility-administered medications prior to visit. Follow Up: Cbc,cmp,lipid, hemoglobin A1c, micro albumin,thyroid, -will call with results Referral diabetes management, gastroenterology ADA diet Refilled medications He is going to call [facility] or [facility]-sobriety Keep going to meetings Follow up in one month Patient noted to have elevated BMI and the following intervention(s) were applied: encouragement toexercise. FRANCO Mathews 03/19/24 1602 documented in this encounterMemorial Health System [facility] Hospital04-22-2024 Miscellaneous Notes* Telephone Encounter - Alta Banuelos - 08/08/2023 1:50 PM EDT Patient was in the ER this weekend for alcohol withdrawal. He is going to rehab on 08/09 in [place]. He is wanting to know if he can have more Ativan to keep him calm until he goes into rehab so he doesn't drink * Telephone Encounter - FRANCO Mathews - 08/08/2023 1:50 PM EDT Sent 4 tabs, one twice a day until Tuesday documented in this encounterMemorial Health System [facility] Hospital04-22-2024 Telephone encounter Note* Telephone Encounter - Alta Banuelos - 08/08/2023 1:50 PM EDT Patient was in the ER this weekend for alcohol withdrawal. He is going to rehab on 08/09 in [place]. He is wanting to know if he can have more Ativan to keep him calm until he goes into rehab so he doesn't drink [facility]04-22-2024 Telephone encounter Note* Telephone Encounter - FRANCO Mathews - 08/08/2023 1:50 PM EDT Sent 4 tabs, one twice a day until Tuesday [facility]03-28-2024 Miscellaneous Notes* Telephone Encounter - Suzy Yeh LPN - 07/14/2023 6:58 PM EDT [facility] requesting refill of Amlodipine documented in this encounterMemorial Health System [facility] Hospital03-28-2024 Miscellaneous Notes* Telephone Encounter - Suzy Yeh LPN - 07/14/2023 6:58 PM EDT [facility] requesting refill of Test Strips, Lancets, Glucometer documented in this encounterMemorial Health System [facility] Hospital03-28-2024 Telephone encounter Note* Telephone Encounter - Suzy Yeh LPN - 07/14/2023 6:58 PM EDT [facility] requesting refill of Amlodipine [facility]03-28-2024 Telephone encounter Note* Telephone Encounter - Suzy Yeh LPN - 07/14/2023 6:58 PM EDT [facility] requesting refill of Test Strips, Lancets, Glucometer [facility] HospitalEvaluation note* Diagnosis Alcohol withdrawal syndrome without complication ([facility])- Primary documented in this encounter [facility] HospitalEvaluation note* Diagnosis Essential hypertension Unspecified essential hypertension Type 2 diabetes mellitus without complication, without long-term current use of insulin ([facility]) documented in this encounter [facility] HospitalEvaluation note* Diagnosis Type 2 diabetes mellitus without complication, without long-term current use of insulin ([facility]) documented in this encounter [place] SystemEvaluation note* Diagnosis Essential hypertension Unspecified essential hypertension Type 2 diabetes mellitus without complication, without long-term current use of insulin ([facility]) documented in this encounter [place] SystemEvaluation note* Diagnosis Wellness examination- Primary Type 2 diabetes mellitus without complication, without long-term current use of insulin (CMS-HCC) Essential hypertension Unspecified essential hypertension Hepatic steatosis Other chronic nonalcoholic liver disease Acute non-recurrent maxillary sinusitis documented in this encounter [facility] HospitalEvaluation [facility]* Diagnosis Essential hypertension Unspecified essential hypertension documented in this encounter [place] SystemEvaluation note* Diagnosis Essential hypertension Unspecified essential hypertension Type 2 diabetes mellitus without complication, without long-term current use of insulin ([facility]) documented in this encounter [place] SystemInstructionsNot on filedocumented in this encounter [facility] SystemInstructionsNot on filedocumented in this encounter [facility] SystemInstructionsNot on filedocumented in this encounter [facility] SystemInstructionsNot on filedocumented in this encounter [facility] SystemInstructions* Attachments The following attachments cannot be sent through Care Everywhere. * Diabetes and diet (French) documented in this encounterProV[facility] SystemInstructionsNot on file documented in this encounterProV[facility] Health SystemInstructionsNot on file documented in this encounterProV[facility] Health SystemInstructionsNot on file documented in this encounterCenterville System Summary Purpose Family History No Family [...] section and content) DATE CREATED AUTHOR 03/31/2019 [facility] DATE CREATED AUTHOR AUTHOR'S ORGANIZ ATION 05/17/2022 [facility] DATE CREATED AUTHOR AUTHOR'S ORGANIZ ATION 08/11/2023 [facility] DATE CREATED AUTHOR AUTHOR'S ORGANIZ ATION 03/21/2024 [facility] DATE CREATED AUTHOR AUTHOR'S ORGANIZ ATION 11/15/2024 [facility] Care Teams (unrecognized sec tion and content) Team MemberRelationshipSpecialtyStart DateEnd Date Daria Smith APRN-MI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 [address] [place] [address] PCP - GeneralFamily Medicine10/24/19Team MemberRelationshipSpecialtyStart DateEnd Date Daria Smith APRN-MI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 [address] [place] [address] PCP - GeneralFamily Medicine10/24/19Team MemberRelationshipSpecialtyStart DateEnd Date Daria Smith APRN-MI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 [address] [place] [address] PCP - GeneralFamily Medicine10/24/19Team MemberRelationshipSpecialtyStart DateEnd Date Daria Smith APRN-MI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 [address] [place] [address] PCP - Generalmily Medicine10/24/19Team MemberRelationshipSpecialtyStart DateEnd Date Daria Smith APRN-MI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 [address] [place] [address] PCP - Generalmily Medicine10/24/19Team MemberRelationshipSpecialtyStart DateEnd Date Daria Smith APRN-MI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 [address] [place] [address] PCP - Generalmily Medicine10/24/19Team MemberRelationshipSpecialtyStart DateEnd Date Daria Smith APRN-MI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 [address] [place] [address] PCP - Generalmily Medicine10/24/19Team MemberRelationshipSpecialtyStart DateEnd Date Daria Smith APRN-MI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 [address] [place] [address] PCP - GeneralFamily Medicine10/24/19 Reason for Visit (unrecogniz ed section and content) ReasonOnset DateCommentsMed Vtvekn534ReasonOnset DateCommentsMed Refill 4ReasonOnset DateCommentsMed Gtlzjd564ReasonOnset DateComments Med Ufsaic614ReasonCommentsAnnual ExamReasonCommentsMed RefillReasonOnset DateCommentsMed Yvdvlo7911/14/2024 FOR RECORDS PERTAINING TO PATIENTS WHO ARE [...] BE BASED ON THE PRIMARY CLINICAL RECORDS. [facility], [facility]. provides no warranty or guarantee of the accuracy or completeness of information in this document.
--- OUTSIDE RECORDS SUMMARY | 2025-03-29 20:10 | XMS_ITS | Clinical Summary ---
Author Organization [facility] Address [id number] [place] [address] Care Team Providers Care Supervisor Instrument Mechanics Name Role Phone KarleneFrancisca white DRILL GRINDER-PHYSICIAN RELATIONS REPRESENTATIVE Primary Care Provide r Allergies Active AllergyReactionsCriticalityNoted VjseRveujmfjZynjxvfiaxf84/29/2020 Medications MedicationSigDispense QuantityRefillsLast FilledStart DateEnd DateStatus aspirin 81 mg Indications:Type 2 diabetes mellitus without complication, without long-term current use of insulin ([facility])Take 1 tablet (81 mg total) by mouth in the morning. 30 tablet 1103Active blood sugar diagnostic (ONETOUCH ULTRA TEST) strip Indications:Type 2 diabetes mellitus without complication, without long-term current use of insulin ([facility])use 1 TEST STRIP to TEST BLOOD SUGAR once daily 100 strip 03/19/2024ctive blood-glucose meter [facility] Indications:Type 2 diabetes mellitus without complication, without long-term current use of insulin ([facility])One unit / make sure covered by insurance 1 each 03/19/2024ctive lancets (freestyle) 28 gauge [facility] Indications:Type 2 diabetes mellitus without complication, without long-term current use of insulin ([facility])Use to test daily 100 each ctive lancets (ONETOUCH DELICA PLUS LANCET) 33 gauge [facility] Indications:Type 2 diabetes mellitus without complication, without long-term current use of insulin ([facility])use 1 LANCET to TEST BLOOD SUGAR once daily 100 each ctive amLODIPine (NORVASC) 5 mg tablet Indications:Essential hypertensionTake 1 tablet (5 mg total) by mouth in the morning. 90 tablet 5Active glimepiride (AMARYL) 2 mg tablet Take 1 tablet (2 mg total) by mouth in the morning and 1 tablet (2 mg total) before bedtime. 180 tablet 5Active lisinopriL (PRINIVIL,ZESTRIL) 20 mg tablet Indications:Essential hypertensionTake 1 tablet (20 mg total) by mouth in the morning and 1 tablet (20 mg total) before bedtime. 180 tablet 5Active metFORMIN (GLUCOPHAGE) 1000 mg tablet Indications:Type 2 diabetes mellitus without complication, without long-term current use of insulin ([facility])take 1 tablet by mouth twice a day for diabetes 180 tablet 5Active pravastatin (PRAVACHOL) 20 mg tablet Take 1 tablet (20 mg total) by mouth in the morning. 90 tablet 5Active Active Problems ProblemNoted DateDiagnosed DateAlcohol abuse09/22/2018Type 2 diabetes mellitus without complication, without long-term current use of wurdazg3303/22/2018 Fwnqktlvlix95/05/2018 Overview (03/22/2018): ? etio / ETOH, Hyperglycemia, Low k RBBB03/22/2018 Overview (03/22/2018): K++ low at time Mixed plstvbdzseyiyf98/05/2018 Overview (03/22/2018): Pravatatin, Low Fat Diet, Wt Control Essential ladwsgapzcra79/05/2018 Overview (03/22/2018): Liniopril,/ Diet Low Fat RASHAD, /WT control Generalized anxiety disorder with panic wdtnigd5003/22/2018 Overview (03/22/2018): Needs to make apt with prior counselor at [facility] / Buspar // ?FIONA with Panic attack vs ETOH Renal cyst03/22/2018 Overview (03/22/2018): No intervention Marijuana use Overview (03/22/2018): Recommend to stop Resolved Problems ProblemNoted DateDiagnosed DateResolved DateDrug abuse1Class 2 severe obesity with serious comorbidity and body mass index (BMI) of 37.0 to 37.9 in adult/07/2019 Overview (03/22/2018): 1800 USDA My Plate // 58119 steps a day with 30 min aerobic 3 x wk Former consumption of waxvntz24 Overview (03/22/2018): AA // Dry since Dec 2017 // Binge Drinking / Beer 4 of the 24 oz bottles or more. Atypical nevi1 Overview (03/22/2018): neck Encounters DateTypeDepartmentCare CygcQigcooshmjg08/02/2025Orders Only [facility] [address] [place] [address] External, Scanning Provider from Last 3 Months Immunizations ImmunizationAdministration DatesNext DueCOVID-19, mRNA, LNP-S, PF, 30mcg/0.3mL Dose09/30/2020,1DTP10/29/2020Influenza, Injectable, quadrivalent (PF) 04/12/2018Pneumococcal Jpuqjaaafubftd03/26/3337Adxo93/20/2017 Family History Medical HistoryRelationNameCommentsDiabetesBrotherDiabetesFatherCABG age 55 ETOH DiabetesMotherAlcohol abuseOtherRelationNameStatusCommentsBrotherAliveFather AliveMotherAliveOther Social History Tobacco UseTypesPacks/DayYears UsedDateSmoking Tobacco: NeverSmokeless Tobacco: Never Tobacco Cessation:Counseling Given: Not Answered Alcohol UseStandard Drinks/WeekCommentsYes0 (1 standard drink = 0.6 oz pure alcohol)6-8 24oz of beer a daySocial Connection and Isolation PanelAnswerDate RecordedFrequency of Communication with Friends and CzbmppKxvyq81/11/2019 Frequency of Social Gatherings with Friends and EguybyWnbtq13/11/2019Attends Taoist UirdgocaRucas07/11/2019Active Member of Clubs or OrganizationsNo 02/26/2019Attends Club or Organization NfltumhtFwqmc00/11/2019Marital Status Vnnmrce3002/26/2019AUDIT-CAnswerDate RecordedQ1: How often do you have a drink containing alcohol?Never03/05/2020Q2: How many drinks containing alcohol do you have on a typical day when you are drinking?Patient anvajvsn00/18/2020Q3: How often do you have six or more drinks on one occasion?Never03/05/2020Overall Financial Resource Strain (CARDIA)AnswerDate RecordedHow hard is it for you to pay for the very basics like food, housing, medical care, and heating?Not very hard3PHQ-2AnswerDate RecordedTotal Ziugz79804/26/2020[facility] of Occupational Health - Occupational Stress QuestionnaireAnswerDate RecordedDo you feel stress - tense, restless, nervous, or anxious, or unable to sleep at night because yourmind is troubled all the time - these days?Very much03/05/2020 Exercise Vital SignAnswerDate RecordedOn average, how many days per week do you engage in moderate to strenuous exercise (like a brisk walk)?4 days03/05/2020On average, how many minutes do you engage in exercise at this level?30 min 03/05/2020PRAPARE - TransportationAnswerDate RecordedIn the past 12 months, has lack of transportation kept you from medical appointments or from getting medications?No03/17/2023In the past 12 months, has lack of transportation kept you from meetings, work, or from getting things needed for daily living?No 03/17/2023Housing InstabilityAnswerDate RecordedAre you worried or concerned that in the next two months you may not have stable housing that you own, rent or stay in as a part of a household?No3ChildcareAnswerDate RecordedDo problems getting children's entertainer make it difficult for you to work or study?No 03/05/2020EmploymentAnswerDate RecordedDo you need help finding a local career center and/or a training program?No03/05/2020Hunger ScreeningAnswerDate Recorded Within the past 12 months we worried whether our food would run out before we got money to buy more.Never True08/10/2023Within the past 12 months the food we bought just didn't last and we didn't have money to get more.Never True 4Purpose - LifeAnswerDate RecordedPurpose and direction in lifeUnknown 1EducationAnswerDate RecordedWhat is the highest level of school you have completed or the highest degree you have received?10th grade02/26/2019Sex and Gender InformationValueDate RecordedSex Assigned at IdtkmVldl25/19/2018 1:38 PM ESTLegal SvbWlib9911/21/2014 11:28 AM EDTGender TpqilxpcZcya69/19/2018 1:38 PM ESTSexual UmlsyxmzhmiVhomqitl08/19/2018 1:38 PM ESTOccupationIndustryJob Start DateJob End Dateplastic 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 on fileNot on fileNot on filecurrnet unemployedNot on fileNot on fileNot on filedenies industrial exposuresNot on fileNot on fileNot on file Last Filed Vital Signs Vital SignReadingTime TakenCommentsBlood Fynxmwui979/8403/19/2024 3:33 PM EST Wtzei385903/19/2024 3:33 PM EUBRwrkuxzadfx94.8 ??C (98.2 ??F)08/10/2023 1:21 AM EDTRespiratory Ahlc652005/20/2023 3:33 PM ESTOxygen Avdhxhdewr27%03/19/2024 3:33 PM ESTInhaled Oxygen Concentration--Dwszxr462.5 kg (237 lb)03/19/2024 3:33 PM JREHrwmfc601.1 cm (5' 5 )03/19/2024 3:33 PM ESTBody Mass Index39.44105/20/2023 3:33 PM EST Plan of Treatment Health MaintenanceDue DateLast DoneCommentsDiabetic Ophthalmology Exam1978 Depression Aevaeidae15/08/1990Diabetic Foot Exam/12/2020, 10/24/2019 COVID-19 Vaccine ( season)/, 09/09/2020Influenza Vyfzwrb76/Adult BMI Kbsylksye82Tobacco Sioxvgqqv84Statin Use: Nqiskkjz73/30/83898211/14/2024DTaP,Tdap and Td Vaccines (3 - Td or Tdap), 03/07/2017 Medical Devices Not on file Procedures Procedure NamePriorityDate/TimeAssociated DiagnosisCommentsXR SHOULDER LT 1 VW Fmkkyqd6303/18/2025from Last 3 Months Results * X-ray shoulder left 1 view (03/18/2025)Anatomical RegionLateralityModalityMSK, Upper Extremities, ShoulderLeftComputed Radiography Narrative Authorizing ProviderResult TypeResult StatusScanning Provider ExternalIMG DIAGNOSTIC IMAGING ORDERABLESEdited Result - Final from Last 3 Months Care Teams Team MemberRelationshipSpecialtyStart DateEnd Date Francisca Smith APRN-PHYSICIAN RELATIONS REPRESENTATIVE [address] [place] [address] PCP - GeneralFamily Medicine10/24/19
--- OUTSIDE RECORDS SUMMARY | 2025-03-29 20:10 | XMS_ITS | Encounter Summary ---
Author Organization [employer] [facility] tem Address [id number] [place] [address] Care Team Providers Care Medical Office Scheduler Name Role Phone Francisca Smith APRN-WATCH AND CLOCK REPAIRER Primary Care Provide r Encounter Details DateTypeDepartmentCare Team (Latest Contact Info)Bhqvuduxzvd56/02/2025Orders Only [facility] [address] [place] [id number] External, Scanning Provider Social History Tobacco UseTypesPacks/DayYears UsedDateSmoking Tobacco: NeverSmokeless Tobacco: NeverAlcohol UseStandard Drinks/WeekCommentsYes0 (1 standard drink = 0.6 oz pure alcohol)6-8 24oz of beer a daySocial Connection and Isolation PanelAnswerDate RecordedFrequency of Communication with Friends and DpoizzJjizt77/11/2019 Frequency of Social Gatherings with Friends and CaomqcCthss23/11/2019Attends Pentecostal AwqucsujHozke03/11/2019Active Member of Clubs or OrganizationsNo 02/26/2019Attends Club or Organization AkpwdeisUdjtn12/11/2019Marital Status Xdpkawq7402/26/2019AUDIT-CAnswerDate RecordedQ1: How often do you have a drink containing alcohol?Never03/05/2020Q2: How many drinks containing alcohol do you have on a typical day when you are drinking?Patient ssetsjyf22/18/2020Q3: How often do you have six or more drinks on one occasion?Never03/05/2020Overall Financial Resource Strain (CARDIA)AnswerDate RecordedHow hard is it for you to pay for the very basics like food, housing, medical care, and heating?Not very hard3PHQ-2AnswerDate RecordedTotal Pbqqo90904/26/2020[facility] of Occupational Health - Occupational Stress QuestionnaireAnswerDate [...] part of a household?No3ChildcareAnswerDate RecordedDo problems getting manager child make it difficult for you to work [...] grade02/26/2019Sex and Gender InformationValueDate RecordedSex Assigned at JhvvhKgad82/19/2018 1:38 PM ESTLegal SngOnxg7611/21/2014 11:28 AM EDTGender ChmfyssxAlcb89/19/2018 1:38 PM ESTSexual TchgmdtgwnfErinhhaf53/19/2018 1:38 PM ESTOccupationIndustryJob Start DateJob End Dateplastic 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 on fileNot on fileNot on filecurrnet unemployedNot on fileNot on fileNot on filedenies industrial exposuresNot on fileNot on fileNot on filedocumented as of this encounter Plan of Treatment Not on file documented as of this encounter Procedures Procedure NamePriorityDate/TimeAssociated DiagnosisCommentsXR SHOULDER LT 1 VW Ekktfoi3803/18/2025documented in this encounter Results * X-ray shoulder left 1 view (03/18/2025)Anatomical RegionLateralityModalityMSK, Upper Extremities, ShoulderLeftComputed Radiography Narrative Authorizing ProviderResult TypeResult StatusScanning Provider ExternalIMG DIAGNOSTIC IMAGING ORDERABLESEdited Result - Final documented in this encounter Visit Diagnoses Not on filedocumented in this encounter Additional Health Concerns AssessmentNoted TimePHQ-9 Depression Total Score: 3:00 PM ESTA Body Mass Index follow-up plan has been documented for the apxpwjh6103/19/2024 4:02 PM ESTdocumented as of this encounter Care Teams Team MemberRelationshipSpecialtyStart DateEnd Date Francisca Smith APRN-TAMMIE [address] [place] [address] PCP - GeneralFamily Medicine10/24/19documented as of this encounter
[2025-03-29] MEDS: DEXAMETHASONE SOD PHOS 10 MG/ML VIAL IM (20:18)
[2025-03-29] MEDS: METHOCARBAMOL 500 MG TABLET PO (20:18)
--- NOTE | 2025-03-29 22:53 | ED_ITS ---
HPI HPI - General Adult General Chief complaint: Extremity Injury, Upper Stated complaint: R Arm injury Time Seen by Provider: 03/29/25 19:38 Source: patient Mode of arrival: walk-in Limitations: no limitations History of Present Illness HPI narrative: Patient is a 45-year-old male presenting to the emergency department with right upper extremity pain. Patient states that over the last few days he has been having intermittent tightness and pain in the right upper extremity. He states the pain is located in his right shoulder and radiates down his right arm into his elbow. He states that he does a lot of heavy lifting/pulling at work. He denies any blunt force injuries to the area. He denies any numbness/tingling/weakness in the extremity. He denies neck pain. No fevers or chills. No chest pain or shortness of breath. He states he had similar symptoms in his left arm a few years ago. He denies prior surgeries to the arm. Related Data Home Medications ?Medication ?Instructions ?Recorded ?Confirmed amlodipine 5 mg tablet 5 mg PO DAILY 09/18/2203/29 glimepiride 2 mg tablet 2 mg PO BID 09/18/22 5 lisinopril 20 mg tablet 40 mg PO DAILY 09/18/2203/18 metformin 1,000 mg tablet 1,000 mg PO BID 09/18/2204/11 pravastatin 20 mg tablet 20 mg PO DAILY 09/18/2203/18 Previous Rx's ?Medication ?Instructions ?Recorded ibuprofen 600 mg tablet 600 mg PO Q8H PRN pain #30 t abs 03/29/25 methocarbamol 500 mg tablet 500 mg PO Q8H PRN pain #20 tabs 03/29/25 Allergies Allergy/AdvReac Type Severity Reaction Status Date / Time Penicillins AdvReac Severe Palpitation Verified 04/23/24 10:11 s Opioid HPI Opioid Management Most Recent Opioid Data: Last Pain Scale 7 Today, 18:00 Ur Phencyclidine Scrn, (NEGATIVE) Negative , 16:10 Review of Systems ROS Status of ROS 10 or more systems reviewed and unremark able except as noted in history and below PFSH PFSH Social History Smoking status: Current every day smoker Little interest or pleasure in doing things: not at all Feeling down, depressed, or hopeless: not at all Exam Narrative Exam Narrative: CONSTITUTIONAL: Well-appearing, answering questions and following commands appropriately SKIN: Was warm and dry. EYES: Sclerae white. EARS, NOSE, THROAT: Moist oral mucosa. RESPIRATORY: Nonlabored respirations. CARDIOVASCULAR: Normal rate and regular rhythm. 2+ radial pulse on the right. GASTROINTESTINAL: Abdomen is nondistended. MUSCULOSKELETAL: The right upper extremity grossly appears normal without ecchymosis or erythema. There are no deformities or peripheral edema. Compartments are soft and compressible. The patient has significant pain with elbow flexion/extension and shoulder abduction. There is full passive and active range of motion throughout the shoulder, elbow, and wrist. There is tenderness to palpation at the insertion site of the bicep tendon at the shoulder and in the antecubital fossa. NEUROLOGIC: Patient is awake and alert. 5/5 strength at the right shoulder/elbow/wrist. Sensation intact to light touch at the right upper extremity. Constitutional Vital Signs, click to edit/add: Last Vital Signs Temp 98.8 F 03/29/25 18:00 Pulse 84 03/29/25 19:58 Resp 20 03/29/25 19:58 BP 162/98 H 03/29/25 19:58 Pulse Ox 98 03/29/25 19:58 O2 Del Method Room Air 03/29/25 19:58 Course Vital Signs Vital signs: Vital Signs Temperature 98.8 F 03/29/25 18:00 Pulse Rate 83 03/29/25 18:00 Respiratory Rate 16 03/29/25 18:00 Blood Pressure 186/99 H 03/29/25 18:00 Pulse Oximetry 98 03/29/25 18:00 Oxygen Delivery Method Room Air 03/29/25 18:00 Temperature 98.8 F 03/29/25 18:00 Pulse Rate 84 03/29/25 19:58 Respiratory Rate 20 03/29/25 19:58 Blood Pressure 162/98 H 03/29/25 19:58 Pulse Oximetry 98 03/29/25 19:58 Oxygen Delivery Method Room Air 03/29/25 19:58 Medical Decision Making [facility] Narrative Medical decision making narrative: Patient is a 45-year-old male presenting to the emergency department with a few day history of right upper extremity pain. His vital signs on arrival are within normal limits. He is afebrile and hemodynamically stable. The right upper extremity is neurovascularly intact. My clinical impression is that the patient's symptoms are secondary to biceps tendinitis, muscle spasm, overuse injury. There are no blunt injuries to suggest underlying fracture, however x-rays were obtained. He was given IM dexamethasone for initial treatment. X-rays of the right wrist and forearm independently reviewed and interpreted by myself and radiology demonstrated no acute osseous abnormalities. I do believe the patient is stable for discharge. They were instructed to follow up with his PCP for further care. Return precautions were given including any new or worsening symptoms. They were given a prescription for methocarbamol and ibuprofen. Patient understands and agrees to the plan. FINAL IMPRESSION: #Acute right upper extremity pain, likely biceps tendinitis DISPOSITION: Discharged home CONDITION: Good Imaging Data Right forearm xray: Attestation: I personally reviewed and interpreted this imaging study as follows: Radiologist's impression: ITS Impressions Forearm X-Ray 03/29/25 19:15 IMPRESSION: NO ACUTE OSSEOUS FINDINGS. Impression dictated by: Tobi Us M.D. 03/29/2025 8:08 PM Dictation [facility] by: [id number] Y Date: 03/29/2025 20:08 Wrist X-Ray 03/29/25 19:15 IMPRESSION: NO ACUTE OSSEOUS FINDINGS. Impression dictated by: Tobi Us M.D. 03/29/2025 8:08 PM Dictation Location: [facility] Electronically authenticated by: [id number] Y Date: 03/29/2025 20:08 Discharge Plan Discharge Chief Complaint: Extremity Injury, Upper Clinical Impression: Biceps tendinitis Patient Disposition: Home, Self-Care Time of Disposition Decision: 19:52 Condition: Good Mode of Transportation: Private Vehicle Prescriptions / Home Meds: New methocarbamol 500 mg tablet 500 mg PO Q8H PRN (Reason: pain) Qty: 20 0RF ibuprofen 600 mg tablet 600 mg PO Q8H PRN (Reason: pain) Qty: 30 0RF No Action amlodipine 5 mg tablet 5 mg PO DAILY glimepiride 2 mg tablet 2 mg PO BID lisinopril 20 mg tablet 40 mg PO DAILY metformin 1,000 mg tablet 1,000 mg PO BID pravastatin 20 mg tablet 20 mg PO DAILY Print Language: Icelandic Instructions: Tendinitis (ED) Referrals: Francisca Smith NP [Primary Care Provider] - 1 week Discharge Date/Time: 03/29/25 20:27
== END 2025-03-29 20:27 | disposition home or self-care (01) ==
PROVIDERS: Emergency Provider Student in an Organized Health Care Education/Training Program; PCP Nurse Practitioner Family
DX: M75.21 Bicipital tendinitis, right shoulder (principal); F17.200 Nicotine dependence, unspecified, uncomplicated
CPT/HCPCS: 73090; 73110; 96372; 99283; 99284; J1100